=== PATIENT | male | born 1945 | race Caucasian/White ===

== ENCOUNTER → 2016-10-09 | Outpatient (CLI) | payer BC ==
[~2016-10-09] MED LIST: AMLO-341 PO; ASPI81TA28 PO; ATOR-26 PO; CLOP1TAB15 PO; PANT40TA PO
[2016-10-09 12:25] LABS: BASO % 0.4 %; BASO ABS # 0.03 K/uL (0-0.2); COMPLETE YES; EOS % 3.6 %; HEMATOCRIT 40.5 % (42-52); IG% 0.1 %; LYMPH % 29.2 %; LYMPH ABS # 2.12 K/uL (1.2-3.4); MEAN CELL VOLUME 89.8 fL (80-100); MEAN CORPUSCULAR HEMOGLOBIN 28.8 pg (25-34); MEAN CORPUSCULAR HGB CONC 32.1 g/dl (32-36); MEAN PLATELET VOLUME 9.7 fL (7.4-10.4); MONO % 11.7 %; PLATELET COUNT 349 K/uL (130-400); RED BLOOD COUNT 4.51 M/uL (4.7-6.1); WHITE BLOOD COUNT 7.26 K/uL (4.8-10.8)
== END | disposition home or self-care (01) ==
LOC: C.LABBFT 07:52
PROVIDERS: ATTEND Internal Medicine
DX: D64.9 Anemia, unspecified (principal)

== ENCOUNTER → 2016-10-24 | Outpatient (CLI) | payer BC ==
[2016-10-24 17:26] LABS: ALT/SGPT 25 U/L (12-78); AST/SGOT 20 U/L (15-37); BLOOD UREA NITROGEN 13 mg/dl (7-18); BUN/CREATININE RATIO 9.8 (10-20); CALCIUM 8.8 mg/dl (8.5-10.1); CARBON DIOXIDE 29 mmol/L (21-32); CHLORIDE 107 mmol/L (98-107); GLUCOSE 84 mg/dl (70-99); POTASSIUM 3.9 mmol/L (3.5-5.1); SODIUM 141 mmol/L (136-145)
[2016-10-24 17:37] LABS: ALB/GLOB RATIO 1.3 (0.9-2); ALKALINE PHOSPHATASE 57 U/L (45-117)
--- NOTE | 2016-10-31 13:29 | CODING QUERY MEDICAL NECESSITY ---
SUPPORTING DIAGNOSIS NEEDED Chani PA, A supporting diagnosis is required for the test/procedure performed on this patient in order for us to be reimbursed by the patient's insurance. Please provide a supporting diagnosis for the following test/procedure listed below next to the test name along with your signature. *If there is no additional diagnosis for this patient that would support the following test/procedure please document that below next to the test/procedure. Test(s)/Procedure(s) that require a supporting diagnosis: * ([id number]) VITAMIN D ASSAY DIAGNOSIS: DATE OF SERVICE: 10/24/16 Provider Signature: Date: Thank you Regis [facility] Information Management Once completed, please kindly fax back to [phone] For questions please call [phone]
== END | disposition home or self-care (01) ==
LOC: C.LABBC 14:51
PROVIDERS: ATTEND Physician Assistant Medical
DX: R53.83 Other fatigue (principal); E78.5 Hyperlipidemia, unspecified

== ENCOUNTER → 2017-01-02 | Outpatient (CLI) | payer BC ==
[2017-01-02 12:11] LABS: BASO % 0.2 %; BASO ABS # 0.01 K/uL (0-0.2); COMPLETE YES; EOS % 2.6 %; HEMATOCRIT 40.4 % (42-52); IG% 0.2 %; LYMPH ABS # 1.55 K/uL (1.2-3.4); MEAN CELL VOLUME 88.8 fL (80-100); MEAN CORPUSCULAR HEMOGLOBIN 29.9 pg (25-34); MEAN CORPUSCULAR HGB CONC 33.7 g/dl (32-36); MONO % 10.3 %; NEUT % 59.7 %; PLATELET COUNT 265 K/uL (130-400); RED BLOOD COUNT 4.55 M/uL (4.7-6.1); WHITE BLOOD COUNT 5.75 K/uL (4.8-10.8)
== END | disposition home or self-care (01) ==
LOC: C.LABBFT 08:01
PROVIDERS: ATTEND Internal Medicine
DX: Z00.00 Encounter for general adult medical examination without abnormal findings (principal); I10 Essential (primary) hypertension; R53.83 Other fatigue; N64.9 Disorder of breast, unspecified

== ENCOUNTER → 2017-03-29 | Outpatient (CLI) | payer BC | END | disposition home or self-care (01) | LOC: C.LABBFT 14:35 | PROVIDERS: ATTEND Urology | DX: N40.1 Benign prostatic hyperplasia with lower urinary tract symptoms (principal) ==

== ENCOUNTER → 2017-07-05 | Outpatient (CLI) | payer BC ==
[~2017-07-05] MED LIST changes: +AMLO-110 PO; +MULT-506 PO; +OMEG10007 PO
--- NOTE | 2017-07-05 13:53 | DIAGNOSTIC IMAGING REPORT ---
L HAND MIN 3 VIEWS CLINICAL HISTORY: Left hand pain COMPARISON: 08/13/2015 DISCUSSION: No acute fractures or dislocations are visualized. Degenerative changes at the level of the first metacarpal phalangeal joint remains stable. There is no erosive disease. IMPRESSION: No acute fractures. Stable degenerative changes at the level of the first carpal metacarpal joint. Electronically signed by: Bharat Yadav M.D. 07/05/2017 1:52 PM Dictated Date/Time: 07/05/2017 1:51 PM
--- NOTE | 2017-07-05 13:55 | DIAGNOSTIC IMAGING REPORT ---
RIGHT HAND 3 VIEWS CLINICAL HISTORY: Arthritis. FINDINGS: 3 views of the right hand are compared to study dated to. The skeletal structures are osteopenic. No fracture is seen. Mild arthritic change is seen at the first carpometacarpal articulation where there is mild bony sclerosis and minimal subchondral cyst formation. Minimal osteoarthritic change is also seen involving the interphalangeal joints, distal greater than proximal. No erosive change is identified. The overlying soft tissues are within normal limits. IMPRESSION: Osteopenia and mild arthritic change as above. No acute bony abnormality is seen in the right hand. Electronically signed by: Humphrey Cantu M.D. 07/05/2017 1:54 PM Dictated Date/Time: 07/05/2017 1:52 PM
== END | disposition home or self-care (01) ==
LOC: C.RDSM 11:18
PROVIDERS: ATTEND Physician Assistant
DX: M18.0 Bilateral primary osteoarthritis of first carpometacarpal joints (principal)

== ENCOUNTER → 2017-07-09 | Outpatient (CLI) | payer BC ==
[2017-07-09 15:41] LABS: BASO % 0.3 %; BASO ABS # 0.03 K/uL (0-0.2); EOS % 4.3 %; EOS ABS # 0.38 K/uL (0-0.5); HEMATOCRIT 41.9 % (42-52); IG# 0.04 K/uL (0.00-0.02); LYMPH % 22.6 %; LYMPH ABS # 1.98 K/uL (1.2-3.4); MEAN CORPUSCULAR HEMOGLOBIN 29.7 pg (25-34); MEAN CORPUSCULAR HGB CONC 33.4 g/dl (32-36); MEAN PLATELET VOLUME 9.7 fL (7.4-10.4); MONO % 8.9 %; MONO ABS # 0.78 K/uL (0.11-0.59); NEUT % 63.4 %; NEUT ABS # 5.57 K/uL (1.4-6.5); PLATELET COUNT 313 K/uL (130-400); RED CELL DISTRIBUTION WIDTH CV 13.1 % (11.5-14.5); RED CELL DISTRIBUTION WIDTH SD 42.7 fL (36.4-46.3); WHITE BLOOD COUNT 8.78 K/uL (4.8-10.8)
[2017-07-09 16:06] LABS: BLOOD UREA NITROGEN 16 mg/dl (7-18); CALCIUM 9.1 mg/dl (8.5-10.1); CARBON DIOXIDE 28 mmol/L (21-32); CREATININE 1.21 mg/dl (0.60-1.40); GLUCOSE 90 mg/dl (70-99); POTASSIUM 4.1 mmol/L (3.5-5.1); SODIUM 137 mmol/L (136-145)
== END ==
LOC: C.LAB 14:22
PROVIDERS: ATTEND Physician Assistant
DX: Z01.818 Encounter for other preprocedural examination (principal)

== ENCOUNTER → 2017-07-24 | Day surgery (SDC) | payer BC ==
[2017-07-10 07:55] VITALS: Ht 180.3 cm; Wt 81.4 kg
[~2017-07-24] VITALS: Ht 180.3 cm; Wt 81.4 kg
[~2017-07-24] MED LIST changes: -AMLO-341 PO; +ATROPINE SULFATE 0.1 MG/ML 5ML SYR IV PRN; +BUPIVACAINE 0.5 % 5 MG/1 ML MPF 30ML VIAL ONE; +CEFAZOLIN 2000MG IV PUSH 10 ML IV SCH; +DEXAMETHASONE SOD INJ 4 MG/ML VIAL ONE; +FENTANYL CITRATE INJ 50 MCG/1 ML 2 ML VIAL ONE; +KETOROLAC TROMETHAMINE 30 MG/ML VIAL IV. PRN; +LACTATED RINGER'S 1000ML 1,000 ML IV SCH; +LIDOCAINE HCL 2% 2 ML VIAL (20MG/ML) ONE; +MIDAZOLAM HCL 1 MG/ML 2ML VIAL ONE; +ONDANSETRON INJ 2 MG/ML 2 ML VIAL IV PRN; +ONDANSETRON INJ 2 MG/ML 2 ML VIAL ONE; +OXYCODONE/ACETAMINOPHEN 5-325 TAB PO PRN; -PANT40TA PO; +PROPOFOL IV EMULSION 10 MG/ML 20 ML VIAL IV ONE; +SODIUM CHLORIDE 0.9% 1000ML 1,000 ML IV SCH
--- NOTE | 2017-07-24 09:50 | History & Physical Bridge Note ---
H&P Re-Evaluation Bridge Note: I have examined the patient, reviewed the History & Physical and in the interval since the performance of the History & Physical I have noted the following changes of clinical significance:consent obtained. No changes noted
--- NOTE | 2017-07-24 09:51 | Discharge Instructions ---
Discharge Instructions Date of Service Jul 24, 2017. Visit Reason for Visit: Left Thumb Carpometacarpal Arthritis Trigger Digit Discharge Discharge Diagnosis / Problem: same Discharge Goals Goal(s): Decrease discomfort, Improve function Medications Stopped Medications Name(s): na Restart Stopped Medication(s): use all scripts as directed Activity Recommendations Activity Limitations: as noted below Lifting Limitations: until after follow-up appointment Exercise/Sports Limitations: until after follow-up appointment May Resume Sexual Activity: after follow-up appointment Shower/Bathe: keep incision dry Driving or Machine Use: Anesthesia . Post Anesthesia Instructions: If you have had General Anesthesia or IV Sedation: * Do not drive today. * Resume driving when surgeon permits. * Do not make important decisions or sign legal documents today. * Call surgeon for: 1. Temperature elevations greater than 101 degrees F. 2. Uncontrollable pain. 3. Excessive bleeding. 4. Persistent nausea and vomiting. 5. Medication intolerance (nausea, vomiting or rash). * For nausea and vomiting use only clear liquids such as: tea, soda, bouillon until nausea subsides, then gradually increase diet as tolerated. * If you have any concerns or questions, call your surgeon's office. If physician is unavailable and it is an emergency, call 911 or go to the nearest emergency room. . Instructions / Follow-Up Instructions / Follow-Up DIET: * Resume previous diet. MEDICATIONS: * Please take your prescriptions as instructed at your pre-op appointment and/ or see medication discharge instructions listed above. * If concerns develop, call your physician's office at . SPECIAL CARE INSTRUCTIONS: * Ice/Elevate as instructed. * Keep dressing clean, dry, intact. * Your surgical extremity may be discolored due to prepping agents used on the skin. A bluish-green tint is a normal variant and should not cause alarm. Call your doctor at [phone] if: * Temperature above 101 degrees * Pain not relieved by pain medicine ordered * There is increased drainage or redness from any incision * You have any unanswered questions, problems or concerns. FOLLOW UP VISIT: * If not already scheduled, please call the office at to schedule a follow-up appointment. Diet Recommendations Recommended Home Diet: resume previous diet Procedures Procedures Performed: see op note Pending Studies Studies pending at discharge: no Medical Emergencies . Who to Call and When: Medical Emergencies: If at any time you feel your situation is an emergency, please call 911 immediately. . Non-Emergent Contact Non-Emergency issues call your: Specialist Call Non-Emergent contact if: temperature is above 101.5, wound has increased drainage, wound has increased redness, wound has increased pain . . "Provider Documentation" section prepared by Yordan Low. .
--- NOTE | 2017-07-24 11:26 | [facility] Post Operative Brief Note ---
Immediate Operative Summary Operative Date Jul 24, 2017. Pre-Operative Diagnosis Left Thumb CMC Arthritis and Trigger Digit Post-Operative Diagnosis Same Procedure(s) Performed Left Thumb Open Basal Joint Reconstruction Using FCR Autograft, Trigger Thumb Release Surgeon Dr. Low Squeegee Tender Surgeon(s) Natan Avitia PA-C Estimated Blood Loss Minimal Findings Consistent with Post-Op Diagnosis Fluids (cc crystalloids) 1500cc Specimens None Drains None Anesthesia Type General Complication(s) none Disposition Accompanied Pt To Recover: no Disposition: Recovery Room / PACU
--- NOTE | 2017-07-24 11:37 | [facility] Operative Report ---
Operative Report Operative Date Jul 24, 2017. Pre-Operative Diagnosis Left Thumb CMC Arthritis and Trigger Digit Post-Operative Diagnosis Left thumb same Procedure(s) Performed Left Thumb Open Basal Joint Reconstruction Using FCR Autograft, Trigger Thumb Release Surgeon Dr. Low Furnace Combustion Analyst Surgeon(s) Natan Avitia PA-C Estimated Blood Loss Minimal Findings Basal joint arthritis left thumb, trigger digit left thumb Fluids (cc crystalloids) 1500cc Specimens None Drains none Complication(s) None Disposition Recovery Room / PACU Indications This 71-year-old white male presented to the office with complaints of triggering of his left thumb and pain at the base of his left thumb that was worse with movement or gripping. Radiographic imaging was obtained that confirmed basal joint arthritis. He had tried activity modification, cortisone injections, and physical therapy without improvement. He elected to proceed with surgical intervention of both in hopes of alleviating his symptoms. Description of Procedure Patient was taken to the operating room where he was given general anesthesia. He was prepped and draped in usual sterile fashion. Please see Dr. Low's operative report for specifics of the procedure. I was present for the entire case from initial patient positioning through final wound closure. Assistance was provided in tissue traction, hemostasis, graft harvest , final wound closure, and splint application. Patient was taken to the recovery room in satisfactory condition. I attest to the content of the Intraoperative Record and any orders documented therein. Any exceptions are noted below.
[2017-07-24] MEDS: FENTANYL CITRATE INJ 50 MCG/1 ML 2 ML VIAL IV PRN ×2 (11:59→12:07)
[2017-07-24 12:28] VITALS: TEMP 36.6
[2017-07-24 12:52] VITALS: BP 153/90; PULSE 82; O2SAT 97
--- NOTE | 2017-07-24 13:13 | Anesthesia Progress Nt - [facility] ---
Anesthesia Post Op Note Date & Time Jul 24, 2017 at 13:13 Vital Signs Pain Intensity: 4 Vital Signs Past 12 Hours Date Time Temp Pulse Resp B/P (MAP) Pulse Ox O2 Delivery O2 Flow Rate FiO2 07/24/17 12:52 82 16 153/90 (111) 97 Room Air 07/24/17 12:28 36.6 86 16 148/87 (107) 96 Room Air 07/24/17 12:21 78 14 94 07/24/17 12:21 78 14 94 07/24/17 12:21 78 14 07/24/17 12:21 78 14 07/24/17 12:20 145/86 07/24/17 12:19 80 14 07/24/17 12:19 81 14 94 07/24/17 12:18 36.5 79 20 145/86 94 Room Air 07/24/17 12:15 153/88 07/24/17 12:14 78 8 07/24/17 12:14 78 8 93 07/24/17 12:13 75 10 07/24/17 12:13 73 10 93 07/24/17 12:10 161/91 07/24/17 12:08 80 12 07/24/17 12:08 81 12 96 07/24/17 12:07 81 13 07/24/17 12:07 83 13 96 07/24/17 12:06 81 13 07/24/17 12:06 79 13 95 07/24/17 12:05 140/84 07/24/17 12:01 77 14 07/24/17 12:01 78 14 95 07/24/17 12:00 144/87 07/24/17 11:56 79 10 99 07/24/17 11:56 78 10 07/24/17 11:55 154/85 07/24/17 11:51 77 9 99 07/24/17 11:51 77 9 07/24/17 11:50 152/89 07/24/17 11:46 79 12 99 07/24/17 11:46 80 12 07/24/17 11:45 160/82 07/24/17 11:41 85 20 07/24/17 11:41 85 20 99 07/24/17 11:40 148/92 07/24/17 11:39 81 12 99 07/24/17 11:39 80 12 07/24/17 11:35 159/94 07/24/17 11:34 81 1 98 07/24/17 11:34 81 1 07/24/17 11:30 154/85 07/24/17 11:29 36.3 92 16 149/77 98 Mask 8 07/24/17 11:29 149/77 07/24/17 09:24 36.7 81 16 164/82 (109) 97 Room Air Notes Mental Status: alert / awake / arousable, participated in evaluation Pt Amnestic to Procedure: Yes Nausea / Vomiting: adequately controlled Pain: adequately controlled Airway Patency, RR, SpO2: stable & adequate BP & HR: stable & adequate Hydration State: stable & adequate Anesthetic Complications: no major complications apparent
--- NOTE | 2017-07-24 16:50 | OPERATIVE REPORT ---
DATE OF OPERATION: 07/24/2017 SURGEON: Dr. Low. AGRICULTURAL EQUIPMENT TEST ENGINEER: BIANKA Avitia. No resident or fellow available. PREOPERATIVE DIAGNOSES: 1. Left trigger thumb. 2. Carpometacarpal arthritis and instability, left thumb. POSTOPERATIVE DIAGNOSES: Same. OPERATION PERFORMED: 1. Basal joint reconstruction using LRTI FCR tendon. 2. Trigger thumb release. PERIOPERATIVE SITUATION: Medically cleared male with intractable thumb pain has both the trigger thumb and basal joint instability and DJD, wants to proceed with both areas simultaneously at his request. DESCRIPTION OF PROCEDURE: The patient appropriately identified, site verified, consent verified, 2 grams of Ancef confirmed as being given. The left upper extremity was prepped and draped in usual routine fashion. Tourniquet was then inflated to 250 mmHg after exsanguination of limb with a rubber Esmarch bandage for a total of approximately 1 hour. The trigger thumb was addressed first due to the fact that the thumb needed to be mobile. The palpable nodule was identified and then skin incisions carefully scratched over that blunt dissection down to the flexor mechanism. The proximal and distal extent of the proximal christopher was then identified and it was incised under direct vision. The tendon had some fraying but no tear. The thumb had full range of motion. There was no catching. It was then irrigated and closed with horizontal 3-0 nylon mattress sutures. Attention was then turned towards the basal joint. A Villatoro type incision was then made. Full thickness flaps raised. Care taken to protect the sensory nerves. The tendons were then dissected from the first metacarpal and retracted ulnarly and radially. The joint was then entered and the trapezium subperiosteally dissected, care was taken to protect the deep branch of the radial artery. The trapezium was then split in half with an osteotome and then removed without any difficulty. The FCR tendon insertion was preserved into the base of the second metacarpal. The wound was then irrigated. An Arthrex anchor was then placed into the trapezoid. Holes were then made in the proximal extent of the first metacarpal and enlarged with curettes. This was then irrigated. The FCR was then harvested through 2 small incisions on the volar surface of the forearm was detached proximally and then delivered into the distal wound. These areas were then irrigated and then closed with 3-0 nylon. The tendon was then passed through. The base of first metacarpal was quite thick and required a fair amount of manipulation to get through, ultimately was through looped on itself and then tied back down to the anchor, which reconstructed the volar beak ligament. The graft was then anchovied on the remaining part of the suture using Heraclio needles which then filled the base of the joint very nicely and this was tight on itself. Sutures were then cut and the capsule was then closed with 2-0 Vicryl sutures with an excellent capsular repair. The wound was then irrigated. At rest, the thumb sat reduced and was nicely in position. The wound was then irrigated one final time and closed with a running 3-0 nylon suture. A 0.062 K wire was then placed and secured the thumb in excellent position for healing of the soft tissue. The wounds were then appropriately dressed with Xeroform, 4 x 4 gauze, light Webril and then a 3-inch fiberglass splint. The patient transferred to recovery room in satisfactory condition having tolerated the procedure well. No DVT prophylaxis required. ESTIMATED BLOOD LOSS: Trace. CRYSTALLOID: Roughly 1500 mL. SPECIMENS: No specimens. I attest to the content of the Intraoperative Record and any orders documented therein. Any exception s are noted below.
== END | disposition home or self-care (01) ==
LOC: X.SURG 09:16
PROVIDERS: ATTEND Physical Medicine & Rehabilitation Sports Medicine
DX: M65.312 Trigger thumb, left thumb (principal); M19.042 Primary osteoarthritis, left hand; I10 Essential (primary) hypertension; K21.9 Gastro-esophageal reflux disease without esophagitis; N40.0 Benign prostatic hyperplasia without lower urinary tract symptoms; Z86.73 Personal history of transient ischemic attack (TIA), and cerebral infarction without residual deficits; Z86.010 Personal history of colon polyps; Z79.82 Long term (current) use of aspirin; Z80.3 Family history of malignant neoplasm of breast; Z80.2 Family history of malignant neoplasm of other respiratory and intrathoracic organs

== ENCOUNTER → 2017-08-20 | Outpatient (CLI) | payer BC ==
[~2017-08-20] MED LIST changes: -ATROPINE SULFATE 0.1 MG/ML 5ML SYR IV PRN; -BUPIVACAINE 0.5 % 5 MG/1 ML MPF 30ML VIAL ONE; -CEFAZOLIN 2000MG IV PUSH 10 ML IV SCH; -DEXAMETHASONE SOD INJ 4 MG/ML VIAL ONE; -FENTANYL CITRATE INJ 50 MCG/1 ML 2 ML VIAL ONE; -KETOROLAC TROMETHAMINE 30 MG/ML VIAL IV. PRN; -LACTATED RINGER'S 1000ML 1,000 ML IV SCH; -LIDOCAINE HCL 2% 2 ML VIAL (20MG/ML) ONE; -MIDAZOLAM HCL 1 MG/ML 2ML VIAL ONE; -ONDANSETRON INJ 2 MG/ML 2 ML VIAL IV PRN; -ONDANSETRON INJ 2 MG/ML 2 ML VIAL ONE; -OXYCODONE/ACETAMINOPHEN 5-325 TAB PO PRN; -PROPOFOL IV EMULSION 10 MG/ML 20 ML VIAL IV ONE; -SODIUM CHLORIDE 0.9% 1000ML 1,000 ML IV SCH
[2017-08-20 11:58] LABS: BASO % 0.4 %; BASO ABS # 0.03 K/uL (0-0.2); EOS % 2.8 %; EOS ABS # 0.19 K/uL (0-0.5); HEMATOCRIT 40.6 % (42-52); HEMOGLOBIN 13.7 g/dL (14.0-18.0); IG# 0.02 K/uL (0.00-0.02); LYMPH % 24.6 %; LYMPH ABS # 1.68 K/uL (1.2-3.4); MEAN CELL VOLUME 86.9 fL (80-100); MEAN CORPUSCULAR HEMOGLOBIN 29.3 pg (25-34); MEAN CORPUSCULAR HGB CONC 33.7 g/dl (32-36); MEAN PLATELET VOLUME 10.4 fL (7.4-10.4); MONO % 8.6 %; MONO ABS # 0.59 K/uL (0.11-0.59); NEUT % 63.3 %; NEUT ABS # 4.33 K/uL (1.4-6.5); PLATELET COUNT 226 K/uL (130-400); RED CELL DISTRIBUTION WIDTH CV 13.4 % (11.5-14.5); RED CELL DISTRIBUTION WIDTH SD 42.5 fL (36.4-46.3); WHITE BLOOD COUNT 6.84 K/uL (4.8-10.8)
[2017-08-20 12:09] LABS: ALBUMIN 3.9 gm/dl (3.4-5.0); ALT/SGPT 24 U/L (12-78); AST/SGOT 15 U/L (15-37); BLOOD UREA NITROGEN 14 mg/dl (7-18); CALCIUM 8.8 mg/dl (8.5-10.1); CARBON DIOXIDE 28 mmol/L (21-32); GLUCOSE 88 mg/dl (70-99); POTASSIUM 3.9 mmol/L (3.5-5.1); SODIUM 139 mmol/L (136-145)
[2017-08-20 12:20] LABS: ALKALINE PHOSPHATASE 66 U/L (45-117); CHOLESTEROL 155 mg/dl (0-200); LDL CHOLESTEROL CALCULATED 74 mg/dl; TOTAL PROTEIN 7.4 gm/dl (6.4-8.2)
== END | disposition home or self-care (01) ==
LOC: C.LAB 10:07
PROVIDERS: ATTEND Internal Medicine
DX: I10 Essential (primary) hypertension (principal); E78.5 Hyperlipidemia, unspecified; I63.9 Cerebral infarction, unspecified; J45.909 Unspecified asthma, uncomplicated; N40.1 Benign prostatic hyperplasia with lower urinary tract symptoms; R53.83 Other fatigue; D64.9 Anemia, unspecified; Z12.5 Encounter for screening for malignant neoplasm of prostate

== ENCOUNTER → 2017-08-20 | Outpatient (CLI) | payer BC | END | disposition home or self-care (01) | LOC: C.RDSM 06:48 | PROVIDERS: ATTEND Physical Medicine & Rehabilitation Sports Medicine | DX: Z09 Encounter for follow-up examination after completed treatment for conditions other than malignant neoplasm (principal); M18.0 Bilateral primary osteoarthritis of first carpometacarpal joints ==

== ENCOUNTER → 2017-10-15 | Outpatient (CLI) | payer BC ==
--- NOTE | 2017-10-15 09:04 | DIAGNOSTIC IMAGING REPORT ---
RIGHT ANKLE 3 VIEWS CLINICAL HISTORY: Right ankle pain. FINDINGS: 3 views of the right ankle are obtained. No prior studies are available for comparison at the time of dictation. The skeletal structures are osteopenic. No fracture is seen. The ankle mortise is intact. Degenerative spurring/enthesophyte formation is noted along the medial malleolus. There is a large plantar calcaneal enthesophyte. No joint effusion is identified. The overlying soft tissues are normal in appearance. IMPRESSION: 1. No acute bony abnormality is identified. 2. Large plantar heel spur. Electronically signed by: Humphrey Cantu M.D. 10/15/2017 9:03 AM Dictated Date/Time: 10/15/2017 9:02 AM
== END | disposition home or self-care (01) ==
LOC: C.RAD1850 08:48
PROVIDERS: ATTEND Internal Medicine
DX: M25.571 Pain in right ankle and joints of right foot (principal); M77.31 Calcaneal spur, right foot

== ENCOUNTER → 2018-02-11 | Outpatient (CLI) | payer BC ==
[~2018-02-11] MED LIST changes: -AMLO-110 PO; +AMLO5TAB3 PO
== END | disposition home or self-care (01) ==
LOC: C.RDSM 13:01
PROVIDERS: ATTEND Physical Medicine & Rehabilitation Sports Medicine
DX: M19.042 Primary osteoarthritis, left hand (principal)

== ENCOUNTER 2018-06-26 08:00 | Inpatient (IN) ==
--- NOTE | 2018-06-26 08:22 | CT Scan Report ---
CT head/brain wo con CLINICAL HISTORY: 72 years-old Male presenting with possible cerebrovascular accident, history of lef t occipital infarct. TECHNIQUE: Multidetector CT imaging of the head was performed without the use of intravenous contrast . IV contrast: None. A dose lowering technique was used consistent with the principles of ALARA (as l ow as reasonably achievable). COMPARISON: 11/19/2014. CT DOSE (mGy.cm): The estimated cumulative dose is 537.48 mGy.cm. FINDINGS: Meat Grader topogram: Unremarkable. Ventricles and sulci normal in size. No hemorrhage. Old infarct in the left occipital lobe involving the left periventricular white matter at the subpleural horn as well as the overlying cortex. No acut e territorial infarct. No mass effect or midline shift. No extra-axial fluid collection. Paranasal si nuses and mastoid air cells clear. Calvarium intact. IMPRESSION: 1. No significant change compared to the prior study. Old left occipital lobe infarct. No acute intr acranial abnormality. Electronically signed by: Rafi Marie M.D. 06/26/2018 8:21 AM
--- NOTE | 2018-06-26 08:32 | XRay Report ---
XR chest 1V portable CLINICAL HISTORY: weakness dyspnea COMPARISON STUDY: 11/18/2014 FINDINGS: The bones soft tissues and hemidiaphragms are normal. The cardiomediastinal silhouette is n ormal. The lungs are clear. The pulmonary vasculature is normal. IMPRESSION: Negative chest. The above report was generated using voice recognition software. It may contain grammatical, syntax or spelling errors. Electronically signed by: Kailash Jung M.D. 06/26/2018 8:31 AM
[2018-06-26 08:34] LABS: Basophils # (auto) 0.03 K/uL (0-0.2); Basophils % (auto) 0.3 %; Eosinophils # (auto) 0.04 K/uL (0-0.5); Eosinophils % (auto) 0.4 %; Hematocrit (blood only) 39.2 % (42-52); Hemoglobin 13.3 g/dL (14.0-18.0); Immature Granulocytes # (auto) 0.04 K/uL (0.00-0.02); Immature Granulocytes % (auto) 0.4 %; Lymphocytes # (auto) 1.76 K/uL (1.2-3.4); Lymphocytes % (auto) 16.1 %; Mean Corpuscular Hgb Conc 33.9 g/dL (32-36); Mean Corpuscular Volume 87.7 fL (80-100); Monocytes # (auto) 0.61 K/uL (0.11-0.59); Monocytes % (auto) 5.6 %; Neutrophils # (auto) 8.48 K/uL (1.4-6.5); Neutrophils % (auto) 77.2 %; Platelet Count 187 K/uL (130-400); RDW Coefficient of Variation 13.2 % (11.5-14.5); Red Blood Count 4.47 M/uL (4.7-6.1); White Blood Count 10.96 K/uL (4.8-10.8)
[2018-06-26 08:39] LABS: Prothrombin Time 9.8 Seconds (9.0-12.0)
[2018-06-26] MEDS ORDERED: MECLIZINE HCL 25 MG TAB PO STA (08:46)
[2018-06-26 08:52] LABS: Alanine Aminotransferase 20 U/L (12-78); Albumin Level 3.6 gm/dl (3.4-5.0); Aspartate Aminotransferase 13 U/L (15-37); BUN Creatinine Ratio 10.6 (10-20); Blood Urea Nitrogen 14 mg/dl (7-18); Calcium 8.5 mg/dl (8.5-10.1); Carbon Dioxide 25 mmol/L (21-32); Chloride 106 mmol/L (98-107); Creatinine Clr Calc Pharmacy 52.7 ml/min; Est GFR (African American) 61.7; Est GFR (Non-African American) 53.3; Glucose 166 mg/dl (70-99); Magnesium 1.9 mg/dl (1.8-2.4); Potassium 3.6 mmol/L (3.5-5.1); Sodium 139 mmol/L (136-145)
[2018-06-26] MEDS ORDERED: AMLODIPINE BESYLATE 5 MG TAB PO ONE (09:00)
[2018-06-26 09:02] LABS: Alkaline Phosphatase 65 U/L (45-117); Bilirubin,Total 0.6 mg/dl (0.2-1); Creatine Kinase 78 U/L (39-308); Globulin 3.7 gm/dl (2.5-4.0); Total Protein 7.3 gm/dl (6.4-8.2); Troponin I < 0.015 ng/ml (0-0.045)
--- NOTE | 2018-06-26 09:38 | History & Physical Report ---
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 Patient underwent left carotid endarterectomy in December 18, 2014. Patient suffered an infected hematoma and underwent reexploration of that area with drainage of the infected hematoma, he continues to follow with Dr. Medina. -Check A1C, lipids with am labs -Neurochecks per protocol, PT/OT eval, speech eval, consider opthamology consultation -Pt was given meclizine x1 dose in the ER, consider continuing if symptoms improve and seems to be more vertigo versus TIA -Permissive hypertension, BP has improved -Echo ordered -Continue ASA 81 mg daily -will start simvastatin (4) H/O carotid endarterectomy: - Noted, stable (5) HLD (hyperlipidemia): -Start statin therapy as above, follow lipid panel (6) Anemia: (7) Asthma: -Stable, uses symbicort inh as outpatient, can continue this here. (8) BPH (benign prostatic hyperplasia): -Stable, follows with Dr. Dickens as an outpatient urology. -Continue alfuzosin 10 mg p.o. p.m. (9) Hypertension: - Well-controlled (10) DVT prophylaxis: teds, scds, continue asa, no chemical anticoagulation in the setting of possible cva and conversion, ambulatory, PT/OT consults. History of Present Illness Primary Care Provider: Rafi Alejandro MD This is a 72 yo M with PMHx of hx of stroke in 2015 s/p carotidendarterectomy, HTN, HLD, remote smoking history and quit in the 1970s. He presents after waking up early this morning and noticed that his gait was unsteady as he attempted to walk to the bathroom. Patient also noticed that his vision seemed blurred, as well as had double vision. Double vision seems to be worse with objects which are approximately 5 feet to 15 feet away from him. He does not notice any decrease in peripheral vision, or light sensitivity. He denies any shortness of breath or chest pain, palpitations or flutter. Patient has never experienced these symptoms before. During his last stroke he had aphasia and difficulty word finding. Patient presented this morning hours after the initiation of symptoms, no thrombolytics were given. The ER did give the patient 1 dose of meclizine for possible vertigo and he reports that diplopia/ blurred vision seems to be improving at this time. Initially his blood pressure was elevated in the 190s over 80s and he has recently been taking off his Norvasc x1 year. Allergies Allergy/AdvReac Type Severity Reaction Status Date / Time No Known Allergies Allergy Unverified 06/26/18 09:00 Home Medications Home Medications Medication Instructions Recorded Confirmed Type Pertussin Cough Syrup 10 ml PO UD 06/26/18 06/26/18 History Symbicort 2 puff INHALATION BID 06/26/18 06/26/18 History acetaminophen [Tylenol Extra 500 mg PO Q6H PRN 06/26/18 06/26/18 History Strength] alfuzosin 10 mg PO PM 06/26/18 06/26/18 History aspirin 81 mg PO HS 06/26/18 06/26/18 History ibuprofen 200 mg PO UD 06/26/18 06/26/18 History multivitamin 1 tab PO QAM 06/26/18 06/26/18 History omega 7-cvq-moc-fish oil [Fish Oil] 1 cap PO 1200 06/26/18 06/26/18 History Past Med/Surg History Medical History Hypertension (Chronic) CVA (cerebral vascular accident) (Resolved) Surgical History H/O carotid endarterectomy Family History Other Family history non-contributory Social History Current Living Situation: Spouse Other Information That Helps Us Care for You: No Feels Safe at Home: Yes Safety Concerns: Feels Safe At This Time Smoking Status: Former smoker Tobacco Type: cigarettes Do You Dip or Chew Tobacco: No Second Hand Exposure: No Tobacco Cessation Education Requested by Patient: No Hx Alcohol Use: Yes Alcohol type: beer Alcohol Intake Frequency: 0-2 drinks per day Hx Substance Use: No Beliefs That Will Affect Care: None Preferred Language: Beninese Communication Ability: Effective Transportation Design Engineer Required: No Review of Systems Constitutional: No fever, sweats or chills Eyes: See HPI, patient seems to be improving at this time. ENT: normal hearing, no trouble swallowing Respiratory: No cough, sputum, dyspnea at rest or on exertion Cardiovascular: No chest pain, tightness or palpitations Abdomen: No pain, nausea, vomiting, diarrhea or constipation Musculoskeletal: No joint pain, calf pain, swelling Neurologic: +Gait abnormality, no numbness/tingling Psychiatric: No anxiety or depression Skin: No rash or itch Physical Exam 2 Vital Signs (Past 24 Hours): Last Vital Signs Temp 36.3 C L 06/26/18 08:01 Pulse 68 06/26/18 09:05 Resp 18 06/26/18 09:05 BP 152/84 H 06/26/18 09:05 Pulse Ox 98 06/26/18 09:05 Physical Exam: General: awake, alert, no apparent distress Head: Normocephalic, atraumatic ENT: PERRL, EOMI, no pharyngeal exudate, mucous membranes moist Chest: Clear to auscultation, on room air, no adventitious breath sounds Cardiac: Regular rate and rhythm, +faint murmur, no JVD, normal peripheral pulses, good capillary refill Abdominal: NABS x 4 quadrants, soft, nontender to palpation, no rebound, guarding or tenderness Extremities: Normal inspection, no peripheral edema or erythema, calfs nontender to palpation Psych: Normal mood and affect Neuro: AAO x 3, strength intact, slight left lower extremity decrease in strength rated a 4 out of 5 compared to the right lower extremity which is a 5/5 , no upper extremity strength discrepancies, and rated 5/5. no motor deficits, speech is clear, no peripheral sensory deficits Results & Data Diagnostic Findings XR chest 1V portable CLINICAL HISTORY: weakness dyspnea COMPARISON STUDY: 11/18/2014 FINDINGS: The bones soft tissues and hemidiaphragms are normal. The cardiomediastinal silhouette is normal. The lungs are clear. The pulmonary vasculature is normal. IMPRESSION: Negative chest. CT head/brain wo con CLINICAL HISTORY: 72 years-old Male presenting with possible cerebrovascular accident, history of left occipital infarct. TECHNIQUE: Multidetector CT imaging of the head was performed without the use of intravenous contrast. IV contrast: None. A dose lowering technique was used consistent with the principles of ALARA (as low as reasonably achievable). COMPARISON: 11/19/2014. CT DOSE (mGy.cm): The estimated cumulative dose is 537.48 mGy.cm. FINDINGS: Firing Pin Gauger topogram: Unremarkable. Ventricles and sulci normal in size. No hemorrhage. Old infarct in the left occipital lobe involving the left periventricular white matter at the subpleural horn as well as the overlying cortex. No acute territorial infarct. No mass effect or midline shift. No extra-axial fluid collection. Paranasal sinuses and mastoid air cells clear. Calvarium intact. IMPRESSION: 1. No significant change compared to the prior study. Old left occipital lobe infarct. No acute intracranial abnormality. ECG Additional Comments: 26-JUN-2018 08:22:14 [facility] Normal sinus rhythm Left axis deviation Incomplete right bundle branch block Abnormal ECG When compared with ECG of 09-JUL-2017 14:37, Premature ventricular complexes are no longer Present Vent. rate 84 BPM AL interval 176 ms QRS duration 102 ms QT/QTc 380/449 ms P-R-T axes 64 -34 34 Code Status & VTE Plan Code Status Full Supervising Physician Co-Signing Physician Notes Attending Admission Note & Attestation - Pt seen/examined, chart reviewed, care plan d/w PATRICIA Patton. I agree w/ the gaines components of her admission documentation. 72yo male with history of asthma and prior left-sided stroke attributed to left- sided ICA stenosis several years ago presenting w/ the acute onset of dizziness , double vision and ataxia. Denies true vertigo. Denies any paresthesias or motor weakness. Double vision improves with covering either eye. The double vision is horizontal in nature. Denies true visual field cut. He also reports URI symptoms for several days, particularly cough. PMH, PSH, allergies, meds, sochx, famhx, ros - reviewed vitals - BPs elevated, other vitals acceptable gen - NAD, a/o x 3, speech clear & fluent eyes - PERRL; visual danielle full by direct confrontation; ?very subtle right lateral abducens palsy?? otherwise EOM were intact mouth - MMM heart - RRR, s1, s2, no murmur lungs - mild end-exp wheeze abd - soft, NT, ND, BS+ ext - no edema neuro - no facial droop; no pronator drift; strength 5/5 x 4 exts; finger/nose/ finger maneuver w/o dysmetria labs- mild leukocytosis BMP wnl CT head - old left occipital lobe stroke; no acute stroke EKG - NSR A/P: 72yo male with asthma and prior stroke presenting with acute onset of diplopia and ataxia. No true vertigo by history and no visual field deficits. Symptoms have persisted since time of presentation. History is concerning for stroke. Complete the stroke work-up with MRI brain, CTA head/neck, echo, telemetry to r/ o a. fib, lipids/a1c, etc. The diplopia is distressing to the patient - can patch either eye to eliminate the diplopia. Neurology consultation requested. Cont aspirin for now but consider changing to plavix. Agree w/ statin. Asthma - with possible early exacerbation - cont symbicort; add combivent 1 puff qid. Consider prednisone if any worsening. Mucinex. Jc Mcneal MD
--- NOTE | 2018-06-26 10:13 | Emergency Department Note ---
Entered by Laurel Osborn acting as a scribe for History of Present Illness General Chief complaint: Neuro Symptoms/Deficit Stated complaint: EYE BLURRY,LIPS NUMB,NOT FEELING WELL,DIZZY Time Seen by Provider: 06/26/18 08:06 Source: patient History of Present Illness Onset (ago): hour(s) 5 Location: eyes Pain Consistency: + constant Maximum Pain Intensity: 0 Quality: + other (dizziness and an inability to "focus his eyes") Associated symptoms: + nausea/vomiting (The patient complains of nausea, but he denies vomiting. ) and + other (The patient complains of numbness in his lips. ) The patient is a 72 year old male who presents to the Emergency Room with complaints of constant dizziness and an inability to "focus his eyes" since he woke up this morning at 0330, about 4.75 hours ago. The patient reports that he feels like a "cheap drunk," and notes that he still has "blurry eyes and dizziness." The patient notes that he has double vision when the object is more than 10 feet away. He states that he got out of bed at 0530 to use the restroom and complains that he was staggering while attempting to walk. The patient complains of numbness in his lips and nausea. He denies any vomiting. The patient's , at bedside, reports that he has had a cold for the past few days. The patient notes that he consumes 1 beer daily, and he denies any tobacco or drug use. He states that he takes a baby Aspirin daily, but notes that he did not take it last night. He states that he takes Arginine daily. The patient reports a history of hypertension and hyperlipidemia. He notes that he had a stroke in 2014. Home Medications Home Medications Medication Instructions Recorded Confirmed Type Pertussin Cough Syrup 10 ml PO UD 06/26/18 06/26/18 History acetaminophen [Tylenol Extra 500 mg PO Q6H PRN 06/26/18 06/26/18 History Strength] alfuzosin 10 mg PO PM 06/26/18 06/26/18 History aspirin 81 mg PO HS 06/26/18 06/26/18 History ibuprofen 200 mg PO UD 06/26/18 06/26/18 History multivitamin 1 tab PO QAM 06/26/18 06/26/18 History omega 0-dbx-hdk-fish oil [Fish Oil] 1 cap PO 1200 06/26/18 06/26/18 History Allergies Allergy/AdvReac Type Severity Reaction Status Date / Time No Known Allergies Allergy Unverified 06/26/18 09:00 Past Med/Surg History Medical History Hypertension (Chronic) CVA (cerebral vascular accident) (Resolved) Family History Other Family history non-contributory Social History Feels Safe at Home: Yes Smoking Status: Former smoker Preferred Language: Dutch Review of Systems See HPI for pertinent positives & negatives. and A total of 10 systems reviewed and were otherwise negative Physical Exam Vital Signs Vital Signs - 24 hr 06/26/18 08:01 06/26/18 08:30 06/26/18 09:05 Temperature 36.3 C L Temperature Source Oral Sepsis Recent Fever Within 48 Hours No Sepsis New/Unexplained Change in Mental Status No Sepsis Action Taken by Nursing No Action Required Pulse Rate 69 84 Pulse Rate [Left Radial] 80 68 Pulse Rhythm [Left Radial] Regular Respiratory Rate 17 18 18 Respiratory Effort / Characteristics Non-Labored Non-Labored Non-Labored Spontaneous Respiratory Depth Normal Normal Normal Respiratory Pattern Regular Regular Regular Blood Pressure 189/96 H Blood Pressure [Right Radial Artery] 190/85 H 152/84 H Blood Pressure Mean 127 Blood Pressure Mean [Right Radial Artery] 120 106 Blood Pressure Position Sitting Blood Pressure Position [Right Radial Artery] Lying Lying Pulse Oximetry 96 98 98 Oxygen Delivery Method Room Air Room Air Room Air VITAL SIGNS: were reviewed as above. GENERAL:Non-toxic in appearance. SKIN: Warm dry and pink. HEAD: Normocephalic and atraumatic. OROPHARYNX: Is clear and moist NECK: Supple without lymphadenopathy or meningismus. LUNGS: clear. HEART: Regular rate and rhythm. ABDOMEN: Soft and nontender. EXTREMITIES: Warm and well perfused. NEUROLOGICALLY: Awake alert and oriented without focal deficit. Cranial nerves 2 -12 are intact. There is no pronator drift. Cerebellar testing is within normal limits. There is no nystagmus. There is no facial droop. Speech is clear. Vision is grossly normal. Ambulation trial reveals wide gait stance, slightly unsteady, but he did not fall. MUSCULOSKELETAL: Good muscle tone. No evidence of trauma. Course 0815: Past medical records reviewed. The patient was evaluated in room A01, and a complete history and physical examination were performed. 24: I spoke to Dr. Wright, neurology at [facility], about the patient's case. 908: I spoke with Jackelyn Patton PA-C [facility], about the patient's case. She will further evaluate the patient. 13: I discussed the plan with the patient. 25: I discussed the results with the patient. Consultations Consultation #1: I spoke to Dr. Wright, neurology at [facility], about the patient's case. Time: 08:24 Consultation #2: I spoke with Jcakelyn Patton PA-C [facility], about the patient's case. She will further evaluate the patient. Time: 09:09 Administered Medications Discontinued Medications Amlodipine Besylate (Norvasc) 5 mg PO NOW ONE Stop: 06/26/18 09:01 Last Admin: 06/26/18 09:07 Dose: 5 mg Meclizine HCl (Antivert) 25 mg PO NOW STA Stop: 06/26/18 08:47 Last Admin: 06/26/18 09:07 Dose: 25 mg Medical Decision Making Differential Diagnosis Differential includes acute coronary syndrome, myocardial infarction, CVA, TIA , anemia, infection, pneumonia, UTI, pyelonephritis, poor nutrition, dehydration , electrolyte disturbance,hypoglycemia. Medical Records Attestation: I reviewed the patient's medical records. Home Medications Current Medication List: was personally reviewed by me Laboratory Data Attestation: I reviewed the patient's lab results. Result diagrams: 06/26/18 08:15 06/26/18 08:15 Lab Results 06/26/18 06/26/18 06/26/18 Range/Units 08:15 08:15 08:15 WBC 10.96 H (4.8-10.8) K/uL RBC 4.47 L (4.7-6.1) M/uL Hgb 13.3 L (14.0-18.0) g/dL Hct 39.2 L (42-52) % MCV 87.7 (80-100) fL MCH 29.8 (25-34) pg MCHC 33.9 (32-36) g/dL RDW Std Deviation 42.0 (36.4-46.3) fL RDW Coeff of [place]one 13.2 (11.5-14.5) % Plt Count 187 (130-400) K/uL MPV 10.0 (7.4-10.4) fL Immature Gran % (Auto) 0.4 % Neut % (Auto) 77.2 % Lymph % (Auto) 16.1 % [place] % (Auto) 5.6 % Eos % (Auto) 0.4 % Baso % (Auto) 0.3 % Immature Gran # (Auto) 0.04 H (0.00-0.02) K/uL Neut # (Auto) 8.48 H (1.4-6.5) K/uL Lymph # (Auto) 1.76 (1.2-3.4) K/uL [place] # (Auto) 0.61 H (0.11-0.59) K/uL Eos # (Auto) 0.04 (0-0.5) K/uL Baso # (Auto) 0.03 (0-0.2) K/uL PT 9.8 (9.0-12.0) Seconds INR 1.0 (0.9-1.1) Sodium 139 (136-145) mmol/L Potassium 3.6 (3.5-5.1) mmol/L Chloride 106 (98-107) mmol/L Carbon Dioxide 25 (21-32) mmol/L Anion Gap 8.0 (3-11) BUN 14 (7-18) mg/dl Creatinine 1.31 (0.6-1.4) mg/dl Est Cr Clr Drug Dosing 52.7 ml/min Est GFR ( Amer) 61.7 Est GFR (Non-Af Amer) 53.3 BUN/Creatinine Ratio 10.6 (10-20) Glucose 166 H (70-99) mg/dl POC Glucose (70-99) Calcium 8.5 (8.5-10.1) mg/dl Magnesium 1.9 (1.8-2.4) mg/dl Total Bilirubin 0.6 (0.2-1) mg/dl AST 13 L (15-37) U/L ALT 20 (12-78) U/L Alkaline Phosphatase 65 (45-117) U/L Total Creatine Kinase 78 (39-308) U/L Troponin I < 0.015 (0-0.045) ng/ml Total Protein 7.3 (6.4-8.2) gm/dl Albumin 3.6 (3.4-5.0) gm/dl Globulin 3.7 (2.5-4.0) gm/dl Albumin/Globulin Ratio 1.0 (0.9-2) TSH 1.770 (0.300-4.500) uIu/ml 06/26/18 06/26/18 Range/Units 08:15 08:18 WBC (4.8-10.8) K/uL RBC (4.7-6.1) M/uL Hgb (14.0-18.0) g/dL Hct (42-52) % MCV (80-100) fL MCH (25-34) pg MCHC (32-36) g/dL RDW Std Deviation (36.4-46.3) fL RDW Coeff of Tyrone (11.5-14.5) % Plt Count (130-400) K/uL MPV (7.4-10.4) fL Immature Gran % (Auto) % Neut % (Auto) % Lymph % (Auto) % [place] % (Auto) % Eos % (Auto) % Baso % (Auto) % Immature Gran # (Auto) (0.00-0.02) K/uL Neut # (Auto) (1.4-6.5) K/uL Lymph # (Auto) (1.2-3.4) K/uL [place] # (Auto) (0.11-0.59) K/uL Eos # (Auto) (0-0.5) K/uL Baso # (Auto) (0-0.2) K/uL PT (9.0-12.0) Seconds INR (0.9-1.1) Sodium (136-145) mmol/L Potassium (3.5-5.1) mmol/L Chloride (98-107) mmol/L Carbon Dioxide (21-32) mmol/L Anion Gap (3-11) BUN (7-18) mg/dl Creatinine (0.6-1.4) mg/dl Est Cr Clr Drug Dosing ml/min Est GFR ( Amer) Est GFR (Non-Af Amer) BUN/Creatinine Ratio (10-20) Glucose (70-99) mg/dl POC Glucose 151 H (70-99) Calcium (8.5-10.1) mg/dl Magnesium (1.8-2.4) mg/dl Total Bilirubin (0.2-1) mg/dl AST (15-37) U/L ALT (12-78) U/L Alkaline Phosphatase (45-117) U/L Total Creatine Kinase (39-308) U/L Troponin I Cancelled (0-0.045) ng/ml Total Protein (6.4-8.2) gm/dl Albumin (3.4-5.0) gm/dl Globulin (2.5-4.0) gm/dl Albumin/Globulin Ratio (0.9-2) TSH (0.300-4.500) uIu/ml Imaging Data Radiologist's Impression: Radiology results as stated below per my review and the radiologist's interpretation: XR chest 1V portable CLINICAL HISTORY: weakness dyspnea COMPARISON STUDY: 11/18/2014 FINDINGS: The bones soft tissues and hemidiaphragms are normal. The cardiomediastinal silhouette is normal. The lungs are clear. The pulmonary vasculature is normal. IMPRESSION: Negative chest. The above report was generated using voice recognition software. It may contain grammatical, syntax or spelling errors. Electronically signed by: Kailash Jung M.D. 06/26/2018 8:[address] head/brain wo con CLINICAL HISTORY: 72 years-old Male presenting with possible cerebrovascular accident, history of left occipital infarct. TECHNIQUE: Multidetector CT imaging of the head was performed without the use of intravenous contrast. IV contrast: None. A dose lowering technique was used consistent with the principles of ALARA (as low as reasonably achievable). COMPARISON: 11/19/2014. CT DOSE (mGy.cm): The estimated cumulative dose is 537.48 mGy.cm. FINDINGS: Dry Sand Molder topogram: Unremarkable. Ventricles and sulci normal in size. No hemorrhage. Old infarct in the left occipital lobe involving the left periventricular white matter at the subpleural horn as well as the overlying cortex. No acute territorial infarct. No mass effect or midline shift. No extra-axial fluid collection. Paranasal sinuses and mastoid air cells clear. Calvarium intact. IMPRESSION: 1. No significant change compared to the prior study. Old left occipital lobe infarct. No acute intracranial abnormality. Electronically signed by: Rafi Marie M.D. 06/26/2018 8:21 AM ECG Data Attestation: I personally reviewed and interpreted this ECG as follows: Indication: other (neurological symptoms) Rate (beats per minute): 84 Rhythm: normal sinus Findings: no ST elevation and no ectopy Blood Pressure Blood Pressure Findings: Elevated blood pressure Blood Pressure Disposition: further management by hospitalist DANIEL Field This is a 72-year-old male who presents to the ED with a chief complaint of strokelike symptoms. The patient reports that he awoke this morning around 3: 30 AM. He felt like his vision was blurry and he was unsteady on his feet. He also reports some nausea and dry heaves. The patient states that he continued having symptoms this morning including some numbness in his upper and lower lip as well as tongue. He felt unsteady with his gait. He continued having symptoms as well as some double vision when looking at things beyond 10 feet or so. He came in through triage and was a stroke alert. On my evaluation, the stroke exam did not reveal any focal deficits. His symptoms are mostly subjective. He was able to ambulate although his gait seem to be somewhat wide stance. Cerebellar testing was normal. He did not appear to have any motor or sensory deficits. He states that his dizziness seemed to be exacerbated by turning his head. The lip numbness has been going on for only a couple of hours. The patient reports a history of high blood pressure but does not take his current blood pressure medications and he has a history of high cholesterol. His initial blood pressure was 189/96. An EKG shows a normal sinus rhythm. CT scan of the brain reveals an old left-sided occipital infarct. He states that he had a stroke in 2014. CBC and chemistry panel was unremarkable. Chest x-ray was negative for acute disease. The patient was given Norvasc 5 mg p.o. for his hypertension. He was given meclizine p.o. for his dizziness. Tele-stroke was performed although I spoke with the neurologist and they did not feel the patient was a thrombolytic candidate based on his symptoms and history. They did recommend admission for neurological assessment and further imaging studies and evaluation. Impression & Plan Ataxia, Diplopia Discharge Plan Visit Data Chief Complaint: Neuro Symptoms/Deficit Stated Complaint: EYE BLURRY,LIPS NUMB,NOT FEELING WELL,DIZZY ED Provider: Mani Gaytan Discharge Problem: Ataxia, Diplopia Patient Disposition: Being Evaluated by Hospitalist Forms Stand Alone Forms: [facility] Prescriptions Prescriptions: No Action multivitamin Tablet 1 tab PO QAM RF: 0 ibuprofen 200 mg Capsule 200 mg PO UD RF: 0 aspirin 81 mg Tablet,Delayed Release (Dr/Ec) 81 mg PO HS RF: 0 alfuzosin 10 mg tablet extended release 24 hr 10 mg PO PM RF: 0 omega 5-myi-jwh-fish oil [Fish Oil] 1,000 mg (120 mg-180 mg) Capsule 1 cap PO 1200 RF: 0 acetaminophen [Tylenol Extra Strength] 500 mg Tablet 500 mg PO Q6H PRN (Reason: Pain) RF: 0 Pertussin Cough Syrup 10 ml PO UD RF: 0 Referrals Referrals: Rafi Alejandro MD [Primary Care Provider] - The scribe's documentation has been prepared under my direction and personally reviewed by me in its entirety. I confirm that the note above accurately reflects all work, treatment, procedures, and medical decision making performed by me.
[2018-06-26] MEDS ORDERED: PHARMACIST DISCHARGE MED REC CONSULT PRN (11:03)
[2018-06-26] MEDS ORDERED: ACETAMINOPHEN 500 MG TAB PO PRN (11:03)
[2018-06-26 11:32] LABS: Basophils # (auto) 0.02 K/uL (0-0.2); Basophils % (auto) 0.1 %; Hematocrit (blood only) 40.6 % (42-52); Immature Granulocytes # (auto) 0.04 K/uL (0.00-0.02); Immature Granulocytes % (auto) 0.3 %; Lymphocytes # (auto) 1.22 K/uL (1.2-3.4); Lymphocytes % (auto) 9.1 %; Mean Corpuscular Volume 87.7 fL (80-100); Monocytes # (auto) 0.76 K/uL (0.11-0.59); Monocytes % (auto) 5.6 %; Neutrophils # (auto) 11.44 K/uL (1.4-6.5); Neutrophils % (auto) 84.9 %; Platelet Count 182 K/uL (130-400); RDW Coefficient of Variation 13.2 % (11.5-14.5); RDW Standard Deviation 42.1 fL (36.4-46.3); Red Blood Count 4.63 M/uL (4.7-6.1); White Blood Count 13.48 K/uL (4.8-10.8)
[2018-06-26 11:38] LABS: Mean Corpuscular Hgb Conc 34.5 g/dL (32-36)
[2018-06-26 11:40] LABS: Partial Thromboplastin Time 25.2 Seconds (21.0-31.0)
[2018-06-26 11:47] LABS: BUN Creatinine Ratio 12.3 (10-20); Calcium 8.8 mg/dl (8.5-10.1); Creatinine Clr Calc Pharmacy 61.1 ml/min; Est GFR (African American) 73.8; Est GFR (Non-African American) 63.7; Magnesium 2.1 mg/dl (1.8-2.4)
[2018-06-26 13:09] LABS: Estimated Average Glucose 111 mg/dl
[2018-06-26] MEDS: OMEGA-3 (PURIFIED FISH OIL) 1 GM CAP PO SCH (13:22)
[2018-06-26 15:49] LABS: Appearance Urine Clear (Clear); Bilirubin Urine Negative (Negative); Color Urine Yellow; Glucose Urine UA Negative (Negative); Ketones Urine 1+ (Negative); Leukocyte Esterase Urine Negative (Negative); Nitrite Urine Negative (Negative); Protein Urine Negative (Negative); Specific Gravity Urine 1.023 (1.000-1.030); Urobilinogen Urine Negative (Negative)
[2018-06-26] MEDS ORDERED: GADOBUTROL 65ML VIAL IV PRN (17:23)
[2018-06-26] MEDS ORDERED: OPTIRAY 320 125ml IV PRN (17:29)
--- NOTE | 2018-06-26 17:42 | Magnetic Resonance Report ---
MRI OF THE BRAIN WITHOUT AND WITH IV CONTRAST CLINICAL HISTORY: Stroke. Blurred vision. Double vision. COMPARISON STUDY: MRI of the brain November 18, [address] June 26, 2018. TECHNIQUE: Utilizing a 1.5 Lakisha magnet and dedicated coil, multiplanar, multiecho imaging of the br ain was performed pre and postcontrast administration. IV administration of 8 mL of Gadavist contras t was uneventful. FINDINGS: There are no foci of restricted diffusion to suggest acute infarct. No acute intracranial h emorrhage, midline shift or mass effect is present. Ventricular system is normal. Basilar cisterns ar e patent. There are no extra-axial collections. Flow-voids for the major intracranial vessels are pre sent. There is no intracranial mass or pathologic enhancement. Old left occipital lobe infarct is not ed. White matter T2 hyperintense foci suggest small vessel disease. There is a small left frontal lob e infarct as well. Calvarial signal is maintained. There is mild ethmoid sinus mucosal thickening. IMPRESSION: 1. No acute intracranial findings. 2. Several old infarcts. 3. Mild small vessel disease. 4. No intracranial mass or pathologic enhancement. Electronically signed by: Juan A Galindo M.D. 06/26/2018 5:41 PM
--- NOTE | 2018-06-26 17:57 | CT Scan Report ---
CT angio neck with con, CT angio head wo/w CLINICAL HISTORY: 72 years-old Male with stroke. Acute strokelike symptoms COMPARISON STUDY: MRI brain 06/26/2017, CT head 06/26/2018, CTA head and neck 11/19/2014 TECHNIQUE: Follo wing the IV administration of 119 mL of Optiray 320, CT angiogram of the head and neck was performed from the aortic arch to the skull base. Images are reviewed in the axial, sagittal, and coronal plane s. 3-D MIPS images are created and assessed. IV contrast was administered without complication. All m easurements were calculated based on NASCET criteria. Additional noncontrast head CT was obtained. A dose lowering technique was utilized adhering to the principles of ALARA. CT DOSE: 1252.91 mGy.cm FINDINGS: CT HEAD: Encephalomalacia from remote infarct noted about the left occipital lobe. Mild atrophy. Ill-defined h ypodensities about the white matter are suggestive of chronic microvascular ischemic changes. 4 mm ca lcification of the third ventricle suggests choroid plexus with colloid cyst thought to be less likel y. No acute intracranial hemorrhage, midline shift, abnormal extra-axial collections, hydrocephalus o r intracranial mass. No acute territorial infarct. No calvarial fracture. Mastoid air cells and middle ear cavities are clear. Paranasal sinuses are gen erally clear. Soft tissues and orbits are within normal limits. CTA HEAD AND NECK: Normal three-vessel morphology of aortic arch with moderate mixed plaque formation. Patency of the im aged bilateral subclavian arteries. The bilateral common carotid arteries are widely patent. Moderate mixed plaque formation about the right carotid bulb causes less than 50% luminal narrowing. Mild ath eromatous plaque about the left carotid bulb and proximal left ICA without significant stenosis. Calc ified plaque about the cavernous, clinoid and supraclinoid segments. Patency of the bilateral middle and anterior cerebral arteries. Anterior communicating artery appears normal and patent. Dominant right vertebral artery. Tortuosity and atheromatous plaque formation about the proximal righ t vertebral artery is noted resulting in less than 50% luminal narrowing. The remainder of the right vertebral artery appears normal and is patent. Diminutive left vertebral artery, likely developmental . Tortuosity about the proximal V3 segment left vertebral artery on image 3:30 series 4 without high- grade stenosis. The majority of the left vertebral artery terminates into the left PICA. Basilar louie ry is normal and patent. Patency of the bilateral posterior cerebral arteries. No aneurysm, dissectio n, high-grade stenosis or proximal branch occlusion. Cerebral venous sinuses appear patent and within normal limits. Lung apices are generally clear. Mild biapical pleural-parenchymal scarring. No prevertebral soft tis marlene swelling. Soft tissues are unremarkable. No adenopathy. Orbits are unremarkable. Mastoid air cell s and middle ear cavities are clear. Minimal mucosal thickening of the ethmoid and maxillary sinuses. Multilevel spondylitic spurring and facet arthrosis of the spine. IMPRESSION: 1. Unremarkable CTA without aneurysm, dissection, high-grade stenosis or proximal branch occlusion. 2. Encephalomalacia from remote infarct about the left occipital lobe. The above report was generated using voice recognition software. It may contain grammatical, syntax o r spelling errors. Electronically signed by: Gerardo Palomo M.D. 06/26/2018 5:56 PM
[2018-06-26] MEDS: BUDESONIDE/FORMOTEROL FUMARATE 80/4.5 60 PUFFS/INHALER INH SCH (20:10)
[2018-06-26] MEDS: IPRATROPIUM BROMIDE/ALBUTEROL respimat INH INH SCH (20:10)
[2018-06-26] MEDS: guaiFENesin 600 MG TABCR PO SCH (20:10)
[2018-06-26] MEDS: ASPIRIN 81 MG ECTAB PO SCH (20:10)
[2018-06-26] MEDS: ALFUZOSIN HCL 10 MG TAB PO SCH (20:10)
[2018-06-27 07:28] LABS: Albumin Level 3.1 gm/dl (3.4-5.0); Bilirubin Direct 0.2 mg/dl (0-0.2); Bilirubin,Total 0.5 mg/dl (0.2-1); Total Protein 6.7 gm/dl (6.4-8.2)
[2018-06-27] MEDS: IPRATROPIUM BROMIDE/ALBUTEROL respimat INH INH SCH ×4 (08:08→20:27)
[2018-06-27] MEDS: BUDESONIDE/FORMOTEROL FUMARATE 80/4.5 60 PUFFS/INHALER INH SCH ×2 (08:08→20:27)
[2018-06-27] MEDS: SIMVASTATIN 40 MG TAB PO SCH (08:09)
[2018-06-27] MEDS: MULTIVITAMIN TAB PO SCH (08:09)
[2018-06-27] MEDS: guaiFENesin 600 MG TABCR PO SCH ×2 (08:09→20:28)
--- NOTE | 2018-06-27 09:30 | Neurology Consultation ---
Date of Consultation June 27, 2018 Assessment & Plan (1) Arterial ischemic stroke, vertebrobasilar, brainstem, acute: This patient's clinical presentation included many symptoms suggestive of vertebrobasilar stroke or TIA. Although his symptoms are largely improved I suspect he has a mild residual right nerve palsy. To my eye, his MRI does reveal a punctate area of restricted diffusion within the right pontine tegmentum adjacent to the fourth ventricle suggestive of a small acute ischemic stroke. An ischemic stroke in this area would explain his residual right 6th nerve palsy and would also be consistent with a vertebrobasilar localization as initially suspected based on presenting symptoms. Fortunately, his CT angiography is negative for basilar thrombosis although he does have a dominant right vertebral artery with an approximate 50% proximal stenosis. Noncompliance with aspirin therapy may have contributed to his current presentation. In addition to continuing with daily low-dose aspirin I would like this patient to start Plavix 75 mg/day which she should continue for the next 3 months. After which, he may discontinue Plavix and continue with aspirin monotherapy. I agree with starting simvastatin. This patient should also have an outpatient ophthalmology assessment to reassess his right 6th nerve palsy. I do anticipate some additional improvement in his diplopia going forward although I did explain to the patient that it is possible he may have some chronic residual diplopia that may require corrective prisms. His current blood pressure is appropriate although he is modestly hypertensive this morning. He may benefit from starting an antihypertensive medication if his blood pressure remains elevated. Would avoid aggressively lowering his blood pressure at this time, however. No further immediate recommendations. History of Present Illness Reason for Consultation: TIA Requesting Physician: Jacquelin Patton PA-C Attending Physician: Jc Mcneal History of Present Illness The patient is a 72-year old male who awoke early yesterday morning at around 3 AM with dizziness, blurry vision, horizontal diplopia at a distance, staggering gait, and associated numbness around the lips as well as some nausea. The symptoms have markedly improved although he continues to complain of mild residual horizontal diplopia at a distance, a bit worse when looking to the right. He denies headache, neck pain, fever, or recent illness. Past medical history notable for stroke and left carotid endarterectomy in 2014. The patient admits to some noncompliance with his aspirin therapy recently. A CT of the head revealed a chronic left occipital infarct. Electrocardiogram reveals a normal sinus rhythm, 84 bpm. His serum glucose was 166. A CT angiogram of the head and neck was unremarkable, there is a moderate degree of atherosclerotic plaque within the dominant right vertebral artery as well as at the right carotid bulb. A brain MRI reveals the chronic left occipital lobe infarct as well as a small chronic left frontal lobe stroke. To my eye, there is a punctate area of restricted diffusion within the right pontine tegmentum, adjacent to the fourth ventricle, potentially consistent with a small acute ischemic infarct. This finding was not specifically described by the interpreting radiologist although could potentially be attributed to T2 shine through. Allergies Allergy/AdvReac Type Severity Reaction Status Date / Time No Known Allergies Allergy Unverified 06/26/18 09:00 Home Medications Home Medications Medication Instructions Recorded Confirmed Type Pertussin Cough Syrup 10 ml PO UD 06/26/18 06/26/18 History Symbicort 2 puff INHALATION BID 06/26/18 06/26/18 History acetaminophen [Tylenol Extra 500 mg PO Q6H PRN 06/26/18 06/26/18 History Strength] alfuzosin 10 mg PO PM 06/26/18 06/26/18 History aspirin 81 mg PO HS 06/26/18 06/26/18 History ibuprofen 200 mg PO UD 06/26/18 06/26/18 History multivitamin 1 tab PO QAM 06/26/18 06/26/18 History omega [id number] oil [Fish Oil] 1 cap PO 1200 06/26/18 06/26/18 History Patient History Medical History BPH (benign prostatic hyperplasia) Asthma Anemia HLD (hyperlipidemia) Ataxia (Acute) Diplopia (Acute) Hypertension (Chronic) CVA (cerebral vascular accident) (Resolved) Surgical History H/O carotid endarterectomy Family History Other Family history non-contributory Social History Current Living Situation: Spouse Other Information That Helps Us Care for You: No Feels Safe at Home: Yes Safety Concerns: Feels Safe At This Time Smoking Status: Former smoker Tobacco Type: cigarettes Do You Dip or Chew Tobacco: No Second Hand Exposure: No Tobacco Cessation Education Requested by Patient: No Hx Alcohol Use: Yes Alcohol type: beer Alcohol Intake Frequency: 0-2 drinks per day Hx Substance Use: No Beliefs That Will Affect Care: None Preferred Language: Nicaraguan Communication Ability: Effective 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 Review of Systems Constitutional: no fever and no chills Eyes: as per Subjective / HPI and + diplopia Ear, Nose, Mouth, Throat: + dizziness; no hearing loss Respiratory: no cough and no dyspnea Cardiovascular: no chest pain and no palpitations Gastrointestinal: no abdominal pain and no vomiting Genitourinary (Male): no dysuria Musculoskeletal: no neck pain and no myalgia Integumentary: no rash and no lesions Neurologic: as per Subjective / HPI Psychiatric: no depression and no anxiety Hematologic / Lymphatic: no easy bleeding and no lymphadenopathy Physical Exam 2 Vital Signs (Past 24 Hours): Last Vital Signs Temp 36.9 C 06/27/18 06:54 Pulse 60 06/27/18 07:30 Resp 16 06/27/18 06:54 BP 154/83 H 06/27/18 06:54 Pulse Ox 94 06/27/18 06:54 Physical Exam: The patient is a well-developed, well-nourished elderly male. He is alert and fully oriented. Recent and remote memory intact. Attention and concentration normal. Patient exhibits a normal spontaneous speech pattern. He is able to name objects and repeat phrases. Speech is non- dysarthric. Patient exhibits an age-appropriate fund of knowledge and normal vocabulary. Visual danielle full to confrontation. Visual acuity normal. Pupils equal round reactive to light and accommodation. Eye movements normal. He does report worsening horizontal diplopia with rightward gaze. No nystagmus. Facial sensation intact. There is normal facial symmetry and strength. Hearing intact. Palate elevates to midline. Shoulder shrug intact. Tongue protrudes to midline. Sensation intact to all modalities in all 4 limbs. Deep tendon reflexes intact and symmetrical. Plantar responses downgoing bilaterally. There is no dysdiadochokinesia or dysmetria finger to nose or heel to gomez bilaterally. Ophthalmoscopic examination reveals normal- appearing optic disks and posterior segments. No papilledema or hemorrhages. Carotid pulses normal bilaterally, no bruits to auscultation. Gait and station not tested due to safety concerns. Muscle strength and tone normal for all 4 limbs. No atrophy. No abnormal movements observed.
[2018-06-27] MEDS ORDERED: CLOPIDOGREL BISULFATE 75 MG TAB PO ONE (11:08)
[2018-06-27] MEDS: OMEGA-3 (PURIFIED FISH OIL) 1 GM CAP PO SCH (11:58)
--- NOTE | 2018-06-27 20:14 | Hospitalist Progress Note ---
Date of Service June 27, 2018 Assessment & Plan (1) Arterial ischemic stroke, vertebrobasilar, brainstem, acute: Appreciate neuro consultation. Dr. Flowers feels there is a mild right 6th nerve palsy (I agree) and a suspected right-sided pontine infarct that would explain his symptoms. Fortunately the diplopia is much improved today and the ataxia is also improved. Work-up thus far including CTAs, echo, telemetry, etc do not show a specific cause of the stroke. Typically, however, this type of stroke tends to be ischemic/thrombotic in a small vessel. With that said, in light of multiple other strokes seen on imaging, will perform an outpatient 30-day event monitor to exclude a. fib, etc. Appreciate Dr. Flowers's recommendation for 3 months of dual antiplatelet therapy (aspirin with plavix) followed by aspirin therapy only. Continue statin agent. Speech therapy has performed their assessment; no needs identified. Await PT, OT evals. Can likely d/c home tomorrow after PT, OT evals. Has ophtho follow-up with Dr. Berger at [facility] early afternoon tomorrow. BPs quite acceptable today. No changes or additions in meds. Present on Admission?: Yes (2) Ataxia: 2nd to brainstem stroke - resolved Present on Admission?: Yes (3) Diplopia: likely 2nd to pontine stroke leading to rightsided 6th nerve palsy this, too, is already improved ophtho follow-up tomorrow scheduled with Dr. Chua at [facility] Present on Admission?: Yes (4) BPH (benign prostatic hyperplasia): no issues at this time (5) Asthma: with possible very mild exacerbation the exacerbation is improved with use of combivent defer on systemic steroids for now (6) HLD (hyperlipidemia): cont high-intensity statin with simvastatin 40mg daily LDL noted to be about 130 on lipids check (7) Hypertension: allow permissive HTN at this time BPs today have been acceptable (8) DVT prophylaxis: if patient stays beyond tomorrow then add heparin SC updated at bedside anticipate d/c home tomorrow no driving until cleared by ophthomology Subjective double vision is much improved he had patched one of the lenses on his eyeglasses but removed it today and noted his double vision was much better ataxia is improved walking/ambulating much better no vertigo no new neuro symptoms tele stable overnight w/o a. fib or other dysrhythmia Constitutional: no fever Eyes: + diplopia; no worsening vision Respiratory: no cough and no dyspnea Cardiovascular: no chest pain Gastrointestinal: no abdominal pain, no nausea and no vomiting Neurologic: no gait abnormality, no localized weakness, no loss of sensation and no headache(s) Physical Exam 2 Vital Signs (Past 24 Hours): Last Vital Signs Temp 36.8 C 06/27/18 19:38 Pulse 61 06/27/18 19:38 Resp 18 06/27/18 19:38 BP 156/84 H 06/27/18 19:38 Pulse Ox 96 06/27/18 19:38 Constitutional: well developed and well nourished; no acute distress Eyes: PERRL right lateral abducens palsy much improved today with near- normal extraocular movements ENMT: external ear and nose normal, oropharynx normal Respiratory: normal respiratory effort, lungs clear to auscultation Cardiovascular: Rate/Rhythm: regular rate and regular rhythm Heart Sounds: normal S1, normal S2 and + murmur (1/6 RUSB) Vessels: posterior tibial pulses present and dorsalis pedis pulses present; no JVD Gastrointestinal (Abdomen): normal bowel sounds, soft, nontender, no hepatosplenomegaly Neurologic: moves all extremities Speech / Cognition: normal speech Motor/Sensory: no tremor finger/nose/finger maneuver w/o dysmetria Results & Data Laboratory Results Laboratory Results - last 24 hr 06/27/18 06/27/18 01:26 06:26 POC Glucose 87 Total Bilirubin 0.5 Direct Bilirubin 0.2 AST 11 L ALT 17 Alkaline Phosphatase 55 Total Protein 6.7 Albumin 3.1 L Triglycerides 101 Cholesterol 200 LDL Cholesterol, Calc 130 VLDL Cholesterol, Calc 20 HDL Cholesterol 50 Cholesterol/HDL Ratio 4 _ (1) Arterial ischemic stroke, vertebrobasilar, brainstem, acute Laterality: right Qualified Code(s): I63.211 - Cerebral infarction due to unspecified occlusion or stenosis of right vertebral artery; I63.22 - Cerebral infarction due to unspecified occlusion or stenosis of basilar artery (2) BPH (benign prostatic hyperplasia) Lower urinary tract symptom presence: symptoms absent Qualified Code(s): N40.0 - Benign prostatic hyperplasia without lower urinary tract symptoms (3) Asthma Asthma severity: moderate Asthma persistence: persistent Asthma complication type: uncomplicated Qualified Code(s): J45.40 - Moderate persistent asthma, uncomplicated (4) HLD (hyperlipidemia) Hyperlipidemia type: mixed hyperlipidemia Qualified Code(s): E78.2 - Mixed hyperlipidemia (5) Hypertension Hypertension type: essential hypertension Qualified Code(s): I10 - Essential (primary) hypertension
[2018-06-27] MEDS: ALFUZOSIN HCL 10 MG TAB PO SCH (20:27)
[2018-06-27] MEDS: ASPIRIN 81 MG ECTAB PO SCH (20:28)
[2018-06-28 07:12] LABS: Calcium 8.5 mg/dl (8.5-10.1); Creatinine Clr Calc Pharmacy 52.3 ml/min; Est GFR (African American) 60.1; Est GFR (Non-African American) 51.8; Potassium 3.5 mmol/L (3.5-5.1)
[2018-06-28] MEDS: IPRATROPIUM BROMIDE/ALBUTEROL respimat INH INH SCH (08:50)
[2018-06-28] MEDS: BUDESONIDE/FORMOTEROL FUMARATE 80/4.5 60 PUFFS/INHALER INH SCH (08:51)
[2018-06-28] MEDS: guaiFENesin 600 MG TABCR PO SCH (08:51)
[2018-06-28] MEDS: MULTIVITAMIN TAB PO SCH (08:51)
[2018-06-28] MEDS: SIMVASTATIN 40 MG TAB PO SCH (08:51)
[2018-06-28] MEDS ORDERED: CLOPIDOGREL BISULFATE 75 MG TAB PO SCH (09:00)
[2018-06-28] MEDS ORDERED: STROKE PATIENT DISCHARGE STA (10:28)
--- NOTE | 2018-06-28 10:37 | Discharge Summary ---
Date of Service June 28, 2018 Admission HPI Per Admitting Provider This is a 72 yo M with PMHx of hx of stroke in 2015 s/p carotid endarterectomy, HTN, HLD, remote smoking history and quit in the 1970s. He presents after waking up early this morning and noticed that his gait was unsteady as he attempted to walk to the bathroom. Patient also noticed that his vision seemed blurred, as well as had double vision. Double vision seems to be worse with objects which are approximately 5 feet to 15 feet away from him. He does not notice any decrease in peripheral vision, or light sensitivity. He denies any shortness of breath or chest pain, palpitations or flutter. Patient has never experienced these symptoms before. During his last stroke he had aphasia and difficulty word finding. Patient presented this morning hours after the initiation of symptoms, no thrombolytics were given. The ER did give the patient 1 dose of meclizine for possible vertigo and he reports that diplopia/ blurred vision seems to be improving at this time. Initially his blood pressure was elevated in the 190s over 80s and he has recently been taking off his Norvasc x1 year. Principal Diagnosis Acute ischemic CVA Discharge Exam Constitutional WD/WN, vitals as above Eyes PERRL, conjunctivae normal, anicteric sclerae ENMT external ear and nose normal, oropharynx normal Neck trachea midline, no thyromegaly Respiratory normal respiratory effort, lungs clear to auscultation Cardiovascular RRR, no murmur, no edema Gastrointestinal (Abdomen) normal bowel sounds, soft, nontender, no hepatosplenomegaly Musculoskeletal Extremities: extremities normal to inspection; no cyanosis and no clubbing Skin no rashes, warm and dry Neurologic PERRL, EOMI, accommodation nl, no face palsy, no dysarthria CN's II-XI intact bilaterally, moves all extremities and awake; no focal motor deficits Psychiatric A+Ox3, euthymic affect Discharge Data Allergies Allergy/AdvReac Type Severity Reaction Status Date / Time No Known Allergies Allergy Unverified 06/26/18 09:00 Consultations Neurology Procedures Performed ECHO: grade 1 diastolic dysfunction, LVEF normal Ordered Studies 06/26/18 08:08 CT head/brain wo con Stat 06/26/18 13:01 CT angio head wo/w Routine MR brain wo/w con Routine 06/26/18 13:13 CT angio neck with con Routine CXR Hospital Course (1) Arterial ischemic stroke, vertebrobasilar, brainstem, acute: Appreciate neuro consultation. Dr. Flowers feels there is a mild right 6th nerve palsy (I agree) and a suspected right-sided pontine infarct that would explain his symptoms. Fortunately the diplopia is much improved, and actually clinically resolved on the day of discharge, and the ataxia is also resolved. Work-up thus far including CTAs, echo, telemetry, etc do not show a specific cause of the stroke. Typically, however, this type of stroke tends to be ischemic/thrombotic in a small vessel. With that said, in light of multiple other strokes seen on imaging, will perform an outpatient 30-day event monitor to exclude a. fib, etc. Appreciate Dr. Flowers's recommendation for 3 months of dual antiplatelet therapy (aspirin with plavix) followed by aspirin therapy only. Restarted on statin agent which he had stopped as an outpatient previously Speech therapy has performed their assessment; no needs identified. PT, OT evals performed and stable for dc to home Has ophtho follow-up with Dr. Berger at [facility] today after discharge-needs assessment and perhaps visual field testing given OLD CVA in left occipital lobe also, in addition to his right 6th nerve palsy acutely here. Needs to NOT DRIVE until cleared by Ophthalmology BPs quite acceptable today. No changes or additions in meds. (2) Ataxia: 2nd to brainstem stroke - resolved (3) Diplopia: likely 2nd to pontine stroke leading to rightsided 6th nerve palsy this, too, is already improved/resolved as above ophtho follow-up today scheduled with Dr. Chua at [facility] (4) BPH (benign prostatic hyperplasia): no issues at this time (5) Asthma: with possible very mild exacerbation the exacerbation is improved with use of combivent defer on systemic steroids for now (6) HLD (hyperlipidemia): Restarted high-intensity statin with simvastatin 40mg daily LDL noted to be about 130 on lipids check (7) Hypertension: allowed permissive HTN BPs today have been acceptable (8) DVT prophylaxis: SCDs updated at bedside Stable for dc to home today no driving until cleared by ophthomology Total Time Total Time Spent Total Time Spent (In Minutes): >30 min Total Time Includes: Examination of the Patient, Discharge Planning, Medication Reconciliation and Communication With Other Providers (OT) Discharge Plan Discharge Items Patient Disposition: Home - Self-Care Reason For Visit: TIA, DIPLOPIA, LLE WEAKNESS Discharge Diagnosis: Presumed acute ischemic CVA, Diplopia Condition: Good Discharge Goals: Diagnostic testing, Learn about illness, Prevent disease, Screening and Therapeutic intervention Activity: Resume your previous activity Lifting: Gradually increase as tolerated Bathing: No limitations Exercise/Sports: Gradually increase as tolerated Driving/Machine Use Comment: No driving until cleared by Ophthalmology to do so Non-emergency contact: Primary Care Provider and Neurologist Call non-emergency contact if: you have any medication questions and your symptoms worsen Follow-up/Referrals: Rafi Alejandro MD [Primary Care Provider] - 07/02/18 4:15 pm (Please, follow up with Dr. Rafi Alejandro on SundayJuly 02 at 4:15 pm. *If you have any questions, call the office at [phone].) Les Flowers MD [Physician] - 07/25/18 8:45 am (Please, follow up at [facility] Neurology Office with Dr. Les Flowers on July 25 at 9:00 am (arrive 8:45 am). *This office is located at [address] in [place]. If you need to change this appointment, call the office at [phone].) Syd Berger MD [Physician] - 06/28/18 1:00 pm (Please, follo up at [facility] with Dr. Berger on SundayJune 28 at 1:15 pm (arrive at 1:00 pm). *This office is located at [address] [place] [address] in [place]. The office phone number is [phone].) Diet: Heart Healthy Add Provider Instructions: You were admitted with dizziness and double vision. The Neurologist thinks you had a small stroke in your brainstem that caused your symptoms. Fortunately, they all seem to be resolved. It is important that you see the [facility] today as scheduled to see if your vision issues have completely resolved and to determine if it is safe for you to be driving. You will have a 30 day cardiac event monitor mailed to your house to wear--this will assess for atrial fibrillation to see if this was the cause of your stroke. Because you have had multiple strokes, it is important to always stay on your simvastatin, regardless of the "numbers" of your cholesterol. Also, Plavix will be added (in addition to your Aspirin) for the next 3 months. After 3 months, you can return to taking a baby aspirin once daily by itself. Please follow up with the Neurologist and PCP as scheduled for you. Risk Factors for Stroke: You can reduce your chances of stroke by working with your medical provider to adopt a healthy lifestyle. Some specific ways to lower your chance of stroke are: * If you are a smoker, now is the time to stop smoking cigarettes * If you are diabetic, improve the control of your blood sugars * Avoid excessive amounts of alcohol * Control high blood pressure * Lose weight if you are overweight * Be sure to lead an active lifestyle * Eat a healthy diet low in salt, cholesterol and fat You should know about other risk factors for stroke that you are unable to control. These include: * Age 55 years or older * Male gender * Certain racial groups: , or / * Family History of Stroke, Mini stroke or Heart Attack * Sickle Cell Disease Follow Up: It is important for you to keep your follow up appointments with your medical provider. Who to Call and When: Medical Emergencies: Call 911 immediately if you experience any of the following warning signs and symptoms of Stroke: * Sudden numbness or weakness of the face, arm or leg, especially on one side of the body * Sudden confusion, trouble speaking or understanding * Sudden trouble seeing in one or both eyes * Sudden trouble walking, dizziness, loss of balance or coordination * Sudden severe headache with no cause Do not delay calling 911 if you experience any warning signs or symptoms of a stroke. Delay in seeking medical attention may affect what treatments can be given to you. . Prescriptions: New clopidogrel 75 mg Tablet 75 mg PO QAM Qty: 30 RF: 2 simvastatin 40 mg Tablet 40 mg PO DAILY Qty: 30 RF: 5 ipratropium-albuterol [Combivent Respimat] 20-100 mcg/actuation Mist 1 puff Inhalation QID PRN (Reason: cough or wheeze) Qty: 1 RF: 0 Continue multivitamin Tablet 1 tab PO QAM RF: 0 aspirin 81 mg Tablet,Delayed Release (Dr/Ec) 81 mg PO HS RF: 0 alfuzosin 10 mg tablet extended release 24 hr 10 mg PO PM RF: 0 omega 9-cie-yqz-fish oil [Fish Oil] 1,000 mg (120 mg-180 mg) Capsule 1 cap PO 1200 RF: 0 acetaminophen [Tylenol Extra Strength] 500 mg Tablet 500 mg PO Q6H PRN (Reason: Pain) RF: 0 Pertussin Cough Syrup 10 ml PO UD RF: 0 Symbicort 80 mcg 2 puff Inhalation BID RF: 0 Discontinued ibuprofen 200 mg Capsule 200 mg PO UD RF: 0 Visit Report Forms: [facility] Portal Stand-Alone Forms: [facility] Discharge Orders: Discharge Order (Routine); Ordered 06/28/18 Ordered By: Alison Jim Admission Data Admit Date/Time: 06/26/18 10:02 Attending Provider: Alison Jim Admit Provider: Jc Mcneal Primary Care Provider: Rafi Alejandro Other Providers: Jc Mcneal ; Les Flowers Service: Telemetry Other Pending Studies at Discharge: No
--- NOTE | 2018-06-28 10:59 | Pharmacy Report ---
Pharmacist Stroke Counseling - Date of Service June 28, 2018 - Scope: Pharmacy has been consulted to provide medication discharge counseling for this patient admitted with [ischemic stroke] [hemorrhagic stroke] [transient ischemic attack] as per the Pharmacist Discharge Counseling for Stroke Patients Protocol. - Medications on Discharge: Home Medications Medication Instructions Recorded Confirmed Pertussin Cough Syrup 10 ml PO UD 06/26/18 06/26/18 Symbicort 2 puff INHALATION BID 06/26/18 06/26/18 acetaminophen [Tylenol Extra 500 mg PO Q6H PRN 06/26/18 06/26/18 Strength] alfuzosin 10 mg PO PM 06/26/18 06/26/18 aspirin 81 mg PO HS 06/26/18 06/26/18 multivitamin 1 tab PO QAM 06/26/18 06/26/18 omega 8-jud-rif-fish oil [Fish Oil] 1 cap PO 1200 06/26/18 06/26/18 New Rx's Medication Instructions Recorded clopidogrel 75 mg PO QAM #30 tab 06/27/18 ipratropium-albuterol [Combivent 1 puff INHALATION QID PRN #1 06/27/18 Respimat] inhaler simvastatin 40 mg PO DAILY #30 tab 06/27/18 - Action: The above medications, specifically ones for stroke treatment/prophylaxis, have been reviewed in detail with the patient and/or patient customer operations representative(s) prior to discharge. This includes indication, common adverse reactions, drug interactions, and medication administration. Medication counseling has been employed using the teach-back method to ensure understanding. - Outcome: The patient and/or patient customer operations representative(s) have demonstrated understanding of the medications. Please note, they are aware that the pharmacist will call them within 72 hours post-discharge to confirm that the appropriate medications are being taken and answer any further medication related questions the patient might have at that time. Contact information Individual to be contacted: Aneudy Pitts Relationship to patient (if applicable): pt Phone number: [phone] Best time to call: [phone] Additional comments: spoke with Mr. Pitts re: d/d interactions, ADEs, and other major counseling pts re : his new Rx for Plavix 75mg QD x3 months. He endorses taking prilosec PRN. i discouraged it's use and made him aware of the interaction bt that and plavix. he verbalized understanding. Thank you for allowing pharmacy to be involved in the care of this patient. Please call [phone] or [phone] with any additional questions
--- NOTE | 2018-07-01 11:36 | Pharmacy Report ---
Pharmacist Post D/C Phone Note - Phone Note: Date of phone call: July 01, 2018. Individual with whom pharmacist spoke to: JEN SUÁREZ The following questions were reviewed during the phone call with responses listed below each: Can you tell me the medications that you are currently taking as well as when and how you take each medication? -See Table Below When have you missed any doses of your medications? - no What side effects are you having from your medications, specifically, the new medications you were started on? - slightly lightheaded What questions do you have about your medications? - none What problems are you having obtaining your medications? - None plavix rx costs $4/month When is your next appointment with your primary care doctor? - 07/02 @8995 Additional comments: - none As per the Pharmacist Discharge Counseling for Stroke Patients Protocol, this phone call has been completed within 72 hours of discharge. Thank you for allowing us to be involved in the care of this patient. - Home Medications: Home Medications Medication Instructions Recorded Confirmed Pertussin Cough Syrup 10 ml PO UD 06/26/18 06/26/18 Symbicort 2 puff INHALATION BID 06/26/18 06/26/18 acetaminophen [Tylenol Extra 500 mg PO Q6H PRN 06/26/18 06/26/18 Strength] alfuzosin 10 mg PO PM 06/26/18 06/26/18 aspirin 81 mg PO HS 06/26/18 06/26/18 multivitamin 1 tab PO QAM 06/26/18 06/26/18 omega 8-oin-ekl-fish oil [Fish Oil] 1 cap PO 1200 06/26/18 06/26/18 New Rx's Medication Instructions Recorded clopidogrel 75 mg PO QAM #30 tab 06/27/18 ipratropium-albuterol [Combivent 1 puff INHALATION QID PRN #1 06/27/18 Respimat] inhaler simvastatin 40 mg PO DAILY #30 tab 06/27/18
== END 2018-06-28 10:55 | disposition home or self-care (01) | DRG 65 ==
LOC: ED 08:00 → SUATTDRO 10:02 → 2E 10:02

== ENCOUNTER 2019-05-21 09:16 | Inpatient (IN) ==
--- NOTE | 2019-05-05 15:51 | PAT Medication Instructions ---
Medication Instructions Date of Service May 05, 2019 Home Medications Medication Instructions Recorded pantoprazole 40 mg tablet,delayed 40 mg PO QAM #90 tab 02/07/19 release cane #1 ea 04/16/19 tramadol 50 mg tablet 50 mg PO Q8H PRN #30 tab 04/16/19 alfuzosin 10 mg PO PM aspirin 81 mg PO HS multivitamin 1 tab PO QAM omega 1-vww-ikf-fish oil [Fish Oil] 1 cap PO QDL Symbicort 2 puff INHALATION BID PRN arginine HCl (L-arginine) 1 cap PO QAM psyllium husk [Metamucil] 4 cap PO QDD pantoprazole 40 mg tablet,delayed release 40 mg PO QAM red yeast rice 600 mg capsule 600 mg PO BID tramadol 50 mg tablet 50 mg PO Q8H PRN amlodipine 5 mg PO QAM STOP taking 2 weeks before surgery (or as soon as possible if surgery is within 2 weeks) omega 3-jmb-lsa-fish oil [Fish Oil] 1 cap PO QDL arginine HCl (L-arginine) 1 cap PO QAM red yeast rice 600 mg capsule 600 mg PO BID DO NOT take the morning of surgery multivitamin 1 tab PO QAM Take morning of surgery With a small sip of water, OTHERWISE NOTHING TO EAT OR DRINK AFTER MIDNIGHT: Symbicort 2 puff INHALATION BID PRN (if needed) pantoprazole 40 mg tablet,delayed release 40 mg PO QAM tramadol 50 mg tablet 50 mg PO Q8H PRN (okay to take up to 4 hours prior to surgery if needed) amlodipine 5 mg PO QAM Take evening before surgery alfuzosin 10 mg PO PM aspirin 81 mg PO HS Symbicort 2 puff INHALATION BID PRN (if needed) psyllium husk [Metamucil] 4 cap PO QDD tramadol 50 mg tablet 50 mg PO Q8H PRN (if needed) Other Notes If you have any questions please call us at [phone] or [phone] or [phone] or [phone]
--- NOTE | 2019-05-06 12:18 | Anesthesiology Consultation ---
Date of Service May 06, 2019 Assessment & Plan (1) Encounter for pre-operative examination: - S/P EGD: 10/10/18: EGD: MAC sedation at [facility] - ASA instructions: patient okay to continue ASA perioperatively per surgeon. Chart Review Chart Review: Pending: Refer to Additional Notes / Consult section (pending preop testing (labs)) and Patient seen in Pre Admission Testing Teaching & Discussion Pre-Anesthesia Teaching/Discussion Notes: Instructed NPO after midnight before surgery,except medications with 15 cc of water. Medication instructions provided according to the PAT guidelines. History Surgery Operation Date: 05/21/19 13:50 Proposed Procedures p Right Total Hip Replacement - Anupam Javed MD Height/Weight Height: 5 ft 11 in Weight: 80.7 kg Allergies Allergy/AdvReac Type Severity Reaction Status Date / Time No Known Allergies Allergy Verified 05/05/19 14:18 Medications Home Medications Medication Instructions Recorded Confirmed Last Taken alfuzosin 10 mg PO PM 06/26/18 05/05/19 10/09/18 19:00 aspirin 81 mg PO HS 06/26/18 05/05/19 10/08/18 16:00 multivitamin 1 tab PO QAM 06/26/18 05/05/19 10/08/18 08:00 omega 0-qtq-olj-fish oil [Fish Oil] 1 cap PO QDL 06/26/18 05/05/19 10/08/18 08:00 Symbicort 2 puff INHALATION BID PRN 10/07/18 05/05/19 10/07/18 08:00 arginine HCl (L-arginine) 1 cap PO QAM 10/07/18 05/05/19 10/08/18 08:00 psyllium husk [Metamucil] 4 cap PO QDD 10/07/18 05/05/19 10/09/18 21:00 pantoprazole 40 mg tablet,delayed 40 mg PO QAM #90 tab 02/07/19 05/05/19 Unknown release red yeast rice 600 mg capsule 600 mg PO BID 03/26/19 05/05/19 Unknown cane #1 ea 04/16/19 05/05/19 Unknown tramadol 50 mg tablet 50 mg PO Q8H PRN #30 tab 04/16/19 05/05/19 Unknown amlodipine 5 mg PO QAM 05/05/19 05/05/19 Unknown Past Medical History Medical History (Updated 05/06/19 @ 12:43 by Makayla Mayes) Anemia Asthma inhaler prn BPH (benign prostatic hyperplasia) Carotid stenosis s/p left CEA (2014) Chronic right hip pain GERD (gastroesophageal reflux disease) controlled History of colon polyps HLD (hyperlipidemia) no meds Hypertension Osteoarthritis Peripheral arterial disease S/P stroke due to cerebrovascular disease 2014- s/p left CEA 06/2018- no deficits/neurology recommended plavix x 3 months-- since discontinued/patient on ASA 81mg Exercise / Class Metabolic Activity III < 4 Walking/Shop/Light housework (uses cane PRN) Past Family History Family History Other Family history non-contributory No family history of adverse response to anesthesia Past Surgical History Surgical History H/O carotid endarterectomy left (2014) History of colonoscopy History of esophagogastroduodenoscopy (EGD) History of open reduction and internal fixation (ORIF) procedure left elbow History of oral surgery on gums History of root canal procedure History of thumb surgery left History of tooth extraction Hx of rectal polypectomy Hx of vasectomy Past Anesthesia History No Hx of Anesthesia Complications and No Family Hx of Anesthesia Complications History of PONV No Hx of PONV and No Hx of Motion Sickness Social History Smoking Status: Former smoker tobacco type: cigarettes Do You Dip or Chew Tobacco: No Smoking End Date: Quit 1971 Hx Alcohol Use: Yes Alcohol type: beer alcohol intake frequency: 0-2 drinks per day (1 drink/day) Hx Substance Use: No substance use type: does not use Review of Systems Reflux controlled. Patient denies chest pain, shortness of breath, cough, wheezing, palpitations. Physical Exam Vital Signs VITALS BP 146/82 P 81 TEMP 98.0 SP02 94% RESP 16 PHYSICAL Full neck and c-spine range of motion. Full TMJ range of motion. TMD 2.5 finger breaths Mallampati Score 3 Dentition: missing molars Lungs: clear throughout to auscultation Cardiac: regular rate and rhythm, no murmurs noted Spine: normal Carotid arteries: negative bruit Extremities: no edema Testing Electrocardiogram Date: 06/26/18 NSR at 84bpm. LAD. iRBBB. Chest X-Ray Date: 06/26/18 Findings: + NAD Echocardiogram Date: 06/26/18 EF 55-60%. No RWMA. Grade I DD. No significant valvular disease. Stress Test Date: 09/16/18 Type: exercise Negative exercise stress ECG for ischemia at 112 % MPHR. No arrhythmia. No chest pain reported. 11.8 METS. Other Testing Neck CTA: 06/26/18: Unremarkable CTA without aneurysm, dissection, high-grade stenosis or proximal branch occlusion. Encephalomalacia from remote infarct about the left occipital lobe.
[2019-05-06 14:18] LABS: Basophils # (auto) 0.03 K/uL (0-0.2); Basophils % (auto) 0.4 %; Eosinophils # (auto) 0.05 K/uL (0-0.5); Eosinophils % (auto) 0.7 %; Hematocrit (blood only) 40.3 % (42-52); Hemoglobin 13.7 g/dL (14.0-18.0); Immature Granulocytes # (auto) 0.02 K/uL (0.00-0.02); Immature Granulocytes % (auto) 0.3 %; Lymphocytes # (auto) 1.57 K/uL (1.2-3.4); Lymphocytes % (auto) 22.8 %; Mean Corpuscular Hemoglobin 30.2 pg (25-34); Mean Corpuscular Volume 88.8 fL (80-100); Mean Platelet Volume 9.7 fL (7.4-10.4); Monocytes # (auto) 0.59 K/uL (0.11-0.59); Monocytes % (auto) 8.6 %; Neutrophils # (auto) 4.64 K/uL (1.4-6.5); Neutrophils % (auto) 67.2 %; Platelet Count 268 K/uL (130-400); RDW Standard Deviation 42.2 fL (36.4-46.3); Red Blood Count 4.54 M/uL (4.7-6.1)
[2019-05-06 14:26] LABS: BUN Creatinine Ratio 12.8 (10-20); Blood Urea Nitrogen 15 mg/dl (7-18); C Reactive Protein < 0.29 mg/dl (0-0.29); Calcium 9.8 mg/dl (8.5-10.1); Carbon Dioxide 26 mmol/L (21-32); Chloride 106 mmol/L (98-107); Creatinine Clr Calc Pharmacy 57.6 ml/min; Est GFR (African American) 69.5; Glucose 112 mg/dl (70-99); Potassium 4.6 mmol/L (3.5-5.1); Sodium 139 mmol/L (136-145)
[2019-05-06 14:28] LABS: Partial Thromboplastin Ratio 0.9; Partial Thromboplastin Time 24.8 Seconds (21.0-31.0); Prothrombin Time 9.9 Seconds (9.0-12.0)
--- NOTE | 2019-05-16 08:21 | History and Physical Report ---
DATE OF ADMISSION: 05/21/2019 CHIEF COMPLAINT: Right hip pain and discomfort. HISTORY OF PRESENT ILLNESS: A 73-year-old gentleman who presents for treatment of his right hip. This all started back in January when he did something and felt like he strained his groin. It has just persisted since then and gradually gotten worse. He was out kayaking and he got up and his pain got significantly worse and he was having difficulty walking. He describes it just deteriorated since then. [facility] and they tried some therapy without any relief. He has been to a chiropractor as well which has not helped. He has resorted to using a cane to get around. He had an x-ray and MRI which showed avascular necrosis. The patient now desires surgical treatment of his hip. Denies any significant back pain. His pain is mostly in his groin and thigh. Increased with any weightbearing. PAST MEDICAL HISTORY: Past medical history significant for 1. Several TIAs with history of left carotid endarterectomy without sequelae. 2. Hypertension. 3. Low back pain/sciatica. 4. BPH. PAST SURGICAL HISTORY: Include: 1. Left elbow surgery. 2. Left carotid endarterectomy. ALLERGIES: None. CURRENT MEDICATIONS: Include: 1. Atorvastatin. 2. Baby aspirin. 3. L-Arginine. 4. Fish oil. SOCIAL HISTORY: A 73-year-old male. He is . His medical doctor is Dr. Alejandro. Occasional alcohol intake. Does not smoke. FAMILY HISTORY: Noncontributory. REVIEW OF SYSTEMS: Significant for some TIAs. No residual sequelae. Denies any chest pain or shortness of breath. He did have a stress test which was normal back in August. PHYSICAL EXAMINATION: GENERAL: Shows a pleasant, healthy appearing, middle-aged male, looks to be in good health. HEENT: Benign. NECK: Supple, no lymphadenopathy. LUNGS: Clear to auscultation. HEART: Regular rate and rhythm. ABDOMEN: Soft, nontender, nondistended. EXTREMITIES: Grossly neurovascularly intact except as follows: Examination of the right hip and leg reveals the patient walks with a markedly antalgic gait. He is using crutches at this moment. His leg lengths appear pretty equal. He has pain with any type of hip motion. He can internally rotate to about 10 degrees, which causes pain. Negative straight leg raise. He is neurologically intact. No knee effusion. X-RAYS: X-rays of the right hip show evidence of avascular necrosis with a little early collapse of the femoral head in the weightbearing portion. He has got some slight cystic changes in the femoral head as well. MRI: MRI from the hospital was also reviewed. It shows a segment of avascular necrosis at the superior dome and weightbearing portion of the femoral head. Small hip joint effusion. He has got some surrounding bone marrow edema. ASSESSMENT: A 73-year-old male with a 5-month history of right hip pain and discomfort that has gradually gotten worse with x-ray and imaging studies consistent with avascular necrosis with collapse. He has failed conservative treatment. It is limiting his lifestyle and he would like to have his hip fixed. PLAN: We are going to take him to the operating room and do right total hip replacement. The risks and benefits of this procedure were explained to the patient including but not limited to DVT, PE, , infection, neurological injury, vascular injury, bleeding problem, pain, limited range of motion, stiffness, failure to relieve symptoms, incomplete relief of symptoms, persistent pain, etc. The patient understands and desires to proceed. Informed consent was obtained. As far as discharge plans, he is planning to be discharged home using [facility] home health program and his 's assistance. We will plan DVT prophylaxis including thigh-high TEDs, SCDs, and baby aspirin twice a day.
[~2019-05-21 09:16] MED LIST changes: +ACETAMINOPHEN 500 MG TAB PO SCH; -AMLO5TAB3 PO; -ASPI81TA28 PO; -ATOR-26 PO; +BUPIVACAINE 0.5 % 5 MG/1 ML PF 10ML VIAL ONE; -CLOP1TAB15 PO; +FAMOTIDINE 20 MG TAB PO SCH; +GABAPENTIN 300 MG CAP PO SCH; +LR 15ML/HR IV SCH; +LR 60ML/HR IV SCH; +METOCLOPRAMIDE HCL 10 MG TABLET PO SCH; -MULT-506 PO; -OMEG10007 PO; +SCOPOLAMINE 1.5 MG TDSY TD SCH; +TRANEXAMIC ACID 1,000 MG **IV Pre-op IV SCH
[2019-05-21] MEDS ORDERED: PROPOFOL IV EMULSION 10 MG/ML 20 ML VIAL IV ONE (09:48)
[2019-05-21] MEDS ORDERED: MoRPHine SULFATE PF 1 MG/ML 10 ML AMP/VIAL ONE (09:48)
[2019-05-21] MEDS ORDERED: MIDAZOLAM HCL 1 MG/ML 2ML VIAL ONE ×3 (09:48→11:52)
[2019-05-21] MEDS ORDERED: LIDOCAINE HCL 2% 2 ML VIAL/AMP(20MG/ML) INFIL ONE (09:48)
[2019-05-21] MEDS ORDERED: KETOROLAC 30 MG/ML VIAL IV PRN (11:00)
[2019-05-21] MEDS ORDERED: MoRPHine SULFATE PF 1 MG/ML 10 ML AMP/VIAL INT SPINAL ONE (11:00)
[2019-05-21] MEDS ORDERED: NALOXONE HCL 0.4 MG/1 ML VIAL/CARP IV PRN ×2 (11:00→14:18)
[2019-05-21] MEDS ORDERED: SODIUM CHLORIDE 0.9% 1000ML 1,000 ML IV SCH (11:00)
[2019-05-21] MEDS ORDERED: LACTATED RINGER'S 500 ML IV PRN (11:00)
[2019-05-21] MEDS ORDERED: NALBUPHINE HCL INJ 10 MG/ML AMP IV PRN (11:00)
[2019-05-21] MEDS ORDERED: MEPERIDINE HCL 25 MG/ML CARP IV PRN (11:00)
[2019-05-21] MEDS ORDERED: NALOXONE HCL 1 MG in SODIUM CHLORIDE 0.9% 1000ML 1,000 ML IV PRN (11:00)
[2019-05-21] MEDS ORDERED: ONDANSETRON INJ 2 MG/ML 2 ML VIAL IV PRN ×2 (11:00→14:18)
[2019-05-21] MEDS ORDERED: NO NARCOTICS OR SEDATIVES SCH (11:00)
[2019-05-21] MEDS ORDERED: PROMETHAZINE HCL 12.5 MG in SODIUM CHLORIDE 0.9% 50 ML IV PRN (11:00)
[2019-05-21] MEDS ORDERED: ePHEDrine sulfate 50 MG/ML AMP IV PRN (11:00)
[2019-05-21] MEDS ORDERED: DiphenhydrAMINE HCL 50 MG/ML VIAL IV PRN (11:00)
[2019-05-21] MEDS ORDERED: NALOXONE HCL 0.08 MG in SYRINGE 1.8 ML IV PRN (11:00)
[2019-05-21] MEDS ORDERED: DC INTRASPINAL MORPHINE SCH (11:00)
[2019-05-21] MEDS ORDERED: EPINEPHrine INJ 1 MG/ML AMP ONE (11:07)
[2019-05-21] MEDS ORDERED: BUPIVACAINE 0.5 % 5 MG/1 ML MPF 30ML VIAL ONE (11:07)
[2019-05-21] MEDS ORDERED: BACITRACIN INJ 50,000 UNIT VIAL ONE (11:07)
--- NOTE | 2019-05-21 11:18 | History & Physical Bridge Note ---
Date of Service May 21, 2019 History & Physical Bridge Note I have examined the patient, reviewed the History & Physical and in the interval since the performance of the History & Physical I have noted the following changes of clinical significance: no changes noted
[2019-05-21] MEDS: CEFAZOLIN 2000MG 2,000 MG/15 ML SYR IV SCH ×3 (11:27→17:12)
[2019-05-21] MEDS ORDERED: ePHEDrine sulfate 50 MG/ML SYR ONE (12:14)
[2019-05-21] MEDS ORDERED: PHENYLEPHRINE HCL 10 MG/ML VIAL ONE (12:14)
--- NOTE | 2019-05-21 12:48 | Post Operative Brief Note ---
PG Immediate Post Op with CF Date of Surgery May 21, 2019 Pre & Post Diagnosis Operation Date: 05/21/19 12:00 Pre-Op Diagnosis: Right Hip Avascular Necrosis Post-Op Diagnosis: Right Hip Avascular Necrosis I identified the patient and participated in the time-out.: Yes Procedure Operation Date: 05/21/19 12:00 Actual Procedures p Right Total Hip Replacement(Right) - Anupam Javed MD Surgeon Anupam Javed MD Certified Legal Investigator Adele, PAC Estimated Blood Loss 300 Findings Consistent with Post-Op Diagnosis Fluids 1700 cc Specimens Specimen Description: Permanent Specimen: A) Right Femoral Head Drains Medina Catheter Anesthesia Type Spinal MAC Complications none Disposition Accompanied Patient To Recovery: Yes Disposition: Recovery Room
--- NOTE | 2019-05-21 13:31 | XRay Report ---
XR hip 1V RT w pelvis CLINICAL HISTORY: Hip arthroplasty COMPARISON: 04/16/2019 DISCUSSION: There are postsurgical changes of a total right hip arthroplasty. The acetabular and femo ral components appear well seated. Overlying skin abbey are evident. There is no dislocation. There is air present within the soft tissues consistent with recent surgery. IMPRESSION: Postsurgical changes of a total right hip arthroplasty. No complicating features identifi ed Electronically signed by: Bharat Yadav M.D. 05/21/2019 1:30 PM
--- NOTE | 2019-05-21 13:38 | Anesthesiology Progress Note ---
Date of Service May 21, 2019 Anesthesia Post Procedure Vital Signs Vital Signs: Temp Pulse Pulse Resp BP Pulse Ox 05/21/19 13:35 36.6 C 82 20 129/62 100 05/21/19 13:25 36.5 C 79 13 135/55 L 98 05/21/19 13:15 36.5 C 84 25 H 121/67 99 05/21/19 13:05 36.5 C 80 21 131/52 L 96 05/21/19 12:58 36.5 C 90 16 107/58 L 100 05/21/19 09:51 36.6 C 98 H 20 179/92 H 98 Pain Intensity Right Hip: Pain Intensity: 0 Transfer of Care Handoff Completed per policy Notes Mental Status: alert / awake / arousable Patient Amnestic to Procedure: Yes Nausea / Vomiting: adequately controlled Pain: adequately controlled Airway Patency, RR, SpO2: stable & adequate BP & HR: stable & adequate Hydration State: stable & adequate Neuraxial Anesthesia: was administered and sensory block is resolving Anesthetic Complications: no major complications apparent
[2019-05-21] MEDS ORDERED: METOCLOPRAMIDE HCL INJ 5 MG/ML 2 ML VIAL IV PRN (14:18)
[2019-05-21] MEDS ORDERED: MAGNESIUM HYDROXIDE SUSP 30 ML UDC PO PRN (14:18)
[2019-05-21] MEDS ORDERED: [UNRECOGNIZED DRUG - OTHER] SCH (14:18)
[2019-05-21] MEDS ORDERED: ALUMINUM/MAGNESIUM SUSP 30 ML UDC PO PRN (14:18)
[2019-05-21] MEDS ORDERED: BISACODYL 10 MG SUPP PR PRN (14:18)
[2019-05-21] MEDS ORDERED: APPL SCH (14:18)
[2019-05-21] MEDS: SODIUM CHLORIDE 0.9% 1000ML 1,000 ML IV SCH (14:41)
[2019-05-21] MEDS: ACETAMINOPHEN 500 MG TAB PO SCH ×2 (14:56→21:14)
[2019-05-21] MEDS: CHECK SCOPOLAMINE PATCH PLACEMENT SCH (16:29)
[2019-05-21] MEDS ORDERED: PSYLLIUM 58.6% POWDER PACKET PO SCH (16:30)
[2019-05-21] MEDS: ASCORBIC ACID 500 MG TAB PO SCH (16:35)
[2019-05-21] MEDS: FERROUS GLUCONATE 324 MG TAB PO SCH (16:35)
--- NOTE | 2019-05-21 18:02 | Operative Report ---
Post Operative Report Pre & Post Diagnosis Operation Date: 05/21/19 12:00 Pre-Op Diagnosis: Right Hip Avascular Necrosis Post-Op Diagnosis: Right Hip Avascular Necrosis I identified the patient and participated in the time-out.: Yes Procedure Operation Date: 05/21/19 12:00 Actual Procedures p Right Total Hip Replacement(Right) - Anupam Javed MD Surgeon Anupam Javed MD Property Caretaker Adele, PAC Estimated Blood Loss 300 Findings Consistent with Post-Op Diagnosis Specimens Right femoral head sent for pathology. Anesthesia Type Spinal MAC Complications none Disposition Accompanied Patient To Recovery: Yes Disposition: Recovery Room Indications Patient is a 73-year-old gentleman whose had a 6-month history of increasing right hip pain discomfort. It got severe enough that he said to use a cane or walker to get around. He had x-rays which showed flattening of his femoral head and MRI which showed avascular necrosis. Patient did failed conservative treatment elected proceed with surgical treatment. Description of Procedure Operative implants consisted of: 1. Biomet size 58 mm G7 acetabular shell. 2. 6.5 cancellus acetabular screws 135 mm length and 125 mm length. 3. [place] hole eliminator. 4. 58 mm outer diameter/26 mm inner diameter highly cross-link polyethylene liner. 5. Depuy Corail size 11 KLA femoral stem. 6. +5/36 mm ceramic articular ball. Patient was taken to the operating room identified and placed on the operating table supine position. Contact there is probably padded. IV en bloc scrubbed by anesthesia team. A spinal anesthetic had been implemented holding area. Medina catheter was placed in sterile fashion with patient then placed in the left lateral decubitus position. Axillary roll was placed. The Stulberg hip positioner was used for positioning. The right hip and leg were then prepped and draped in usual sterile fashion. A posterior lateral approach to the hip was then performed to a curvilinear incision centered over the greater trochanter but Sharp passes cut through subcutaneous tissue down below the IT band gluteal fascia the IT band gluteal fascia then incised longitudinally in line with skin incision. The underlying greater bursa was excised. The piriformis and external rotators were tagged and taken off the posterior aspect of the hip joint capsule. Great care was taken throughout the procedure to protect the sciatic nerve at all times. Posterior capsulotomy was then performed leaving a large flap for later repair. Hip was internally rotated and dislocated. Femoral neck osteotomy cut was made with Final Cut 12 mm above the lesser trochanter. Femoral head was removed and sent for pathology P the femur was retracted anteriorly. Attention drawn the acetabulum. The acetabular labrum was excised to the pulmonary fat was excised. Sequential reaming the acetabulum then performed begin the size 49 progressing up to 57. A 58 mm Biomet G7 acetabular shell was then placed in about 40 degrees lateral opening and 20 degrees of anteversion but was fixed with two 6.5 cancellus acetabular screws. Trial liner was placed. Attention drawn the femur. The proximal femur was entered with a Cuil cutter followed by canal finder. Then broached begin with size 8 and progressing up to 11. We got good fit at 11. Calcar reamer was used to smooth off the calcar. I then trialed the hip in the +5 articular ball provide full stability in full extension and external rotation and flexion to 90 degrees internal rotation over [address] these implants. All trial implants were removed. An apex hole eliminator was placed but highly cross-link polyethylene liner was placed. A [place] Corail size 11 KLA femoral stem was then impacted in position. +5/36 mm ceramic articular ball was placed. Hip was located once again found to be stable. Attention drawn to closing. The wound was irrigated with copious amounts of pulsatile lavage solution. I did inject locally with 60 cc of 5% Marcaine with epinephrine. The posterior capsule and external rotators were then repaired through drill holes in the posterior trochanter with #2 Tycron suture. The IT band gluteal fascia was then closed with #1 PDS suture running fashion this obtains tissue then closed 2 layers the deep layer #1 Vicryl suture this obtains tissues with 2 Dexon suture in a buried interrupted fashion the skin was closed skin abbey. Leg was then cleaned dried and sterile dressing composed of Xeroform, 4 x 4's, sterile ABD pad, foam tape was applied. Patient then transferred to the recovery room in stable condition. Patient tolerated procedure well no comp case but only sponge counts are correct at the end the operation. I attest to the content of the Intraoperative Record and any orders documented therein. Any exceptions are noted below.
--- NOTE | 2019-05-21 18:05 | Progress Note ---
DATE: 05/21/2019 SUBJECTIVE: A 73-year-old gentleman postop from a right total hip replacement. He is doing well. Not having any pain yet. No chest pain or shortness of breath. Not feeling dizzy or lightheaded. OBJECTIVE: VITAL SIGNS: Temperature 36.4. Vital signs stable. GENERAL: Shows a pleasant, elderly male. He is sitting up in his bedside chair, looks quite comfortable. LUNGS: Clear to auscultation. HEART: Has regular rate and rhythm. ABDOMEN: Soft, nontender, nondistended. EXTREMITIES: Grossly neurovascularly intact except as follows: Examination of the right leg reveals the dressing is clean, dry and intact. Leg lengths are equal. Thigh is soft and supple. Hip is located. He is neurologically intact. He can dorsiflex and plantarflex his foot appropriately. X-RAYS: X-rays of the right hip from recovery room are reviewed. It shows right uncemented total hip arthroplasty. Components looked to be in good position. No signs of problems. ASSESSMENT: A 73-year-old gentleman postoperative from a right hip replacement, doing well. His pain is controlled. Hip is located. He is neurologically intact. PLAN: 1. DVT prophylaxis including thigh-high TEDs, SCDs, and aspirin twice a day. 2. PT/OT. Weight bear as tolerated. Right total hip protocol. 3. Pain control, doing well with current pain regimen. 4. IV antibiotics x24 hours. 5. Disposition: Plan to discharge to home likely with some home health once medically stable and adequately recovered.
[2019-05-21] MEDS: ASPIRIN 81 MG ECTAB PO SCH (20:06)
[2019-05-21] MEDS: DOCUSATE SODIUM 100 MG CAP PO SCH (20:12)
[2019-05-21] MEDS ORDERED: BUDESONIDE/FORMOTEROL FUMARATE 80/4.5 60 PUFFS/INHALER INH PRN (21:00)
[2019-05-21] MEDS ORDERED: ALFUZOSIN HCL 10 MG TAB PO SCH (21:00)
[2019-05-21] MEDS ORDERED: SENNA 8.6 MG TAB PO SCH (21:00)
[2019-05-21] MEDS ORDERED: NON-FORMULARY MEDICATION (Red Yeast Rice 600 MG) PO SCH (21:00)
[2019-05-22] MEDS: SODIUM CHLORIDE 0.9% 1000ML 1,000 ML IV SCH (00:02)
[2019-05-22] MEDS: CHECK SCOPOLAMINE PATCH PLACEMENT SCH (00:03)
[2019-05-22] MEDS: CEFAZOLIN 2000MG 2,000 MG/15 ML SYR IV SCH (02:03)
[2019-05-22 04:25] VITALS: TEMP 97.7
[2019-05-22] MEDS ORDERED: HYDROmorphone INJ 0.5 MG/0.5 ML SYR IV PRN (05:02)
[2019-05-22] MEDS ORDERED: TRAMADOL HCL 50 MG TABLET PO PRN (05:02)
[2019-05-22] MEDS: KETOROLAC TROMETHAMINE 15 MG/ML VIAL IV SCH ×2 (05:47→10:38)
[2019-05-22] MEDS: ACETAMINOPHEN 500 MG TAB PO SCH (05:47)
[2019-05-22 06:17] LABS: Basophils # (auto) 0.01 K/uL (0-0.2); Basophils % (auto) 0.1 %; Eosinophils # (auto) 0.09 K/uL (0-0.5); Eosinophils % (auto) 1.2 %; Hematocrit (blood only) 30.4 % (42-52); Hemoglobin 10.2 g/dL (14.0-18.0); Immature Granulocytes # (auto) 0.01 K/uL (0.00-0.02); Immature Granulocytes % (auto) 0.1 %; Lymphocytes # (auto) 1.22 K/uL (1.2-3.4); Lymphocytes % (auto) 16.9 %; Mean Corpuscular Hgb Conc 33.6 g/dL (32-36); Mean Corpuscular Volume 89.4 fL (80-100); Mean Platelet Volume 9.8 fL (7.4-10.4); Monocytes # (auto) 0.62 K/uL (0.11-0.59); Monocytes % (auto) 8.6 %; Neutrophils # (auto) 5.29 K/uL (1.4-6.5); Neutrophils % (auto) 73.1 %; Platelet Count 181 K/uL (130-400); RDW Coefficient of Variation 13.4 % (11.5-14.5); RDW Standard Deviation 43.8 fL (36.4-46.3); White Blood Count 7.24 K/uL (4.8-10.8)
[2019-05-22 06:47] LABS: BUN Creatinine Ratio 12.9 (10-20); Calcium 8.5 mg/dl (8.5-10.1); Creatinine Clr Calc Pharmacy 57.6 ml/min; Est GFR (African American) 69.5; Potassium 4.1 mmol/L (3.5-5.1)
[2019-05-22 07:33] VITALS: BP 147/62; PULSE 97
[2019-05-22] MEDS: ASPIRIN 81 MG ECTAB PO SCH (08:05)
[2019-05-22] MEDS: DOCUSATE SODIUM 100 MG CAP PO SCH (08:05)
[2019-05-22] MEDS: ASCORBIC ACID 500 MG TAB PO SCH (08:05)
[2019-05-22] MEDS: FERROUS GLUCONATE 324 MG TAB PO SCH (08:05)
--- NOTE | 2019-05-22 08:30 | Progress Note ---
DATE: 05/22/2019 SUBJECTIVE: A 73-year-old gentleman postop day 1 from right hip replacement. He is doing pretty well. Pain is controlled. Denies any chest pain or shortness of breath. Not feeling dizzy or lightheaded. OBJECTIVE: VITAL SIGNS: Temperature 36.5. Vital signs stable. GENERAL: Shows a pleasant, middle-aged male. He is sitting up in bed and looks quite comfortable. EXTREMITIES: Examination of the right leg reveals the dressing to be clean. Right hip reveals leg lengths to be equal. Dressing is clean, dry and intact. Thigh is soft and supple. His hip is located. He is neurologically intact. LABORATORY DATA: Hemoglobin 10.2. Hematocrit 30.4. Electrolytes are stable. ASSESSMENT: A 73-year-old gentleman postop day 1 from right hip replacement, doing well. Pain is controlled. Hip is located. He is neurologically intact. He is slightly anemic, but without symptoms. PLAN: 1. DVT prophylaxis including thigh-high TEDs, SCDs, and aspirin twice a day. 2. PT/OT. Weight bear as tolerated. Right total hip protocol. 3. Pain control, doing well with current pain regimen. 4. Disposition: Plan to discharge to home with home health once adequately recovered and medically stable. We will see how he does in therapy today.
[2019-05-22] MEDS ORDERED: PANTOprazole 40 MG TAB PO SCH (09:00)
[2019-05-22] MEDS ORDERED: MULTIVITAMIN TAB PO SCH ×2 (09:00)
[2019-05-22] MEDS ORDERED: AMLODIPINE BESYLATE 5 MG TAB PO SCH (09:00)
[2019-05-22] MEDS ORDERED: ARGININE HCL PO SCH (09:00)
[2019-05-22] MEDS ORDERED: TAMSULOSIN HCL 0.4 MG CAP PO PRN (09:00)
[2019-05-22 10:11] VITALS: O2SAT 95
[2019-05-22] MEDS ORDERED: OMEGA-3 (PURIFIED FISH OIL) 1 GM CAP PO SCH (11:30)
--- NOTE | 2019-05-28 11:05 | Discharge Summary ---
DATE OF ADMISSION: 05/21/2019 DATE OF DISCHARGE: 05/22/2019 ADMITTING PHYSICIAN AND SURGEON: Anupam Javed. ADMITTING DIAGNOSIS: Right hip avascular necrosis. SECONDARY DIAGNOSES: History of several transient ischemic attacks and carotid endarterectomy, hypertension, low back pain, sciatica, and benign prostatic hypertrophy. CONSULTS: None obtained. HISTORY AND PHYSICAL EXAMINATION: Well documented in the patient's chart. HOSPITAL COURSE: The patient was admitted on 05/21/2019, underwent total hip arthroplasty, tolerated the procedure well. There were no complications. He was transferred to the PACU postop and later to the orthopedic floor for further care. He was given Ancef for antibiotic prophylaxis, ZHENG stockings, SCDs and aspirin for DVT prophylaxis. Hemoglobin, hematocrit and vital signs were monitored during his hospital stay and remained stable, did not require any blood transfusions. There were no complications. On postoperative day 1, he was tolerating a regular diet, pain was controlled with oral pain medicine. He was participating in physical therapy. On postop day 1, he was discharged home, set up with home health services. He was given printed discharge instructions as well as new prescriptions for extra strength Tylenol, aspirin and tramadol. Continue his home medications, continue physical therapy, weightbearing as tolerated, ZHENG stockings, total hip precautions. Follow up approximately 2 weeks postop or sooner if there are any problems or concerns.
== END 2019-05-22 11:37 | disposition home health service (06) | DRG 470 ==
LOC: ASU 09:16 → 3E 12:50

== ENCOUNTER 2019-06-14 10:13 | Inpatient (IN) ==
[2019-06-14] MEDS ORDERED: MAGNESIUM SULFATE / D5W 1 GM/100 ML BAG IV ONE ×2 (10:33→10:47)
[2019-06-14] MEDS ORDERED: SODIUM CHLORIDE 0.9% 1000ML 1,000 ML IV ONE ×2 (10:33→10:47)
[2019-06-14] MEDS ORDERED: OPTIRAY 320 125ml IV PRN (10:42)
[2019-06-14 10:43] LABS: Basophils # (auto) 0.02 K/uL (0-0.2); Basophils % (auto) 0.4 %; Eosinophils # (auto) 0.08 K/uL (0-0.5); Eosinophils % (auto) 1.6 %; Hematocrit (blood only) 34.8 % (42-52); Hemoglobin 11.3 g/dL (14.0-18.0); Immature Granulocytes # (auto) 0.02 K/uL (0.00-0.02); Immature Granulocytes % (auto) 0.4 %; Lymphocytes # (auto) 1.64 K/uL (1.2-3.4); Lymphocytes % (auto) 32.9 %; Mean Corpuscular Hemoglobin 29.4 pg (25-34); Mean Corpuscular Hgb Conc 32.5 g/dL (32-36); Mean Corpuscular Volume 90.6 fL (80-100); Mean Platelet Volume 9.5 fL (7.4-10.4); Monocytes # (auto) 0.47 K/uL (0.11-0.59); Monocytes % (auto) 9.4 %; Neutrophils # (auto) 2.75 K/uL (1.4-6.5); Neutrophils % (auto) 55.3 %; Platelet Count 326 K/uL (130-400); RDW Coefficient of Variation 13.4 % (11.5-14.5); RDW Standard Deviation 44.2 fL (36.4-46.3); Red Blood Count 3.84 M/uL (4.7-6.1); White Blood Count 4.98 K/uL (4.8-10.8)
[2019-06-14] MEDS ORDERED: TPA for Stroke IV STA (10:48)
[2019-06-14 10:49] LABS: iSTAT Creatinine 1.2 mg/dl (0.6-1.3); iSTAT Hemoglobin 12.2 g/dl (14.0-18.0); iSTAT Ionized Calcium 1.16 mmol/l (1.12-1.32); iSTAT Potassium 3.9 mEq/L (3.3-5.0)
[2019-06-14 10:55] LABS: Partial Thromboplastin Ratio 0.9; Partial Thromboplastin Time 23.9 Seconds (21.0-31.0); Prothrombin Time 10.3 Seconds (9.0-12.0)
[2019-06-14] MEDS ORDERED: Alteplase Bolus 7.2 MG in SYRINGE 0 ML IV ONE (10:58)
[2019-06-14 10:59] LABS: Alanine Aminotransferase 16 U/L (12-78); Albumin Level 3.7 gm/dl (3.4-5.0); Aspartate Aminotransferase 9 U/L (15-37); BUN Creatinine Ratio 13.3 (10-20); Blood Urea Nitrogen 19 mg/dl (7-18); Carbon Dioxide 27 mmol/L (21-32); Chloride 104 mmol/L (98-107); Creatinine Clr Calc Pharmacy 48.9 ml/min; Est GFR (African American) 57.1; Est GFR (Non-African American) 49.2; Glucose 196 mg/dl (70-99); Magnesium 1.9 mg/dl (1.8-2.4); Potassium 3.8 mmol/L (3.5-5.1); Sodium 136 mmol/L (136-145)
[2019-06-14] MEDS ORDERED: PRIMARY PLUMSET, PE LINED TUBING, 113 IN, NON-DEHP (2260-0500) IV ONE (10:59)
[2019-06-14] MEDS ORDERED: ALTEPLASE, RECOMBINANT 64 MG in EMPTY BAG 0 ML IV ONE (10:59)
--- NOTE | 2019-06-14 11:02 | CT Scan Report ---
CT head/brain wo con CLINICAL HISTORY: 73 years-old Male presenting with Stroke evaluation. TECHNIQUE: Multidetector CT imaging of the head was performed without the use of intravenous contrast . IV contrast: None. One or more dose lowering techniques were used consistent with the principles of ALARA (as low as reasonably achievable), including automatic exposure control, mA or kV adjustment t o individual patient size, and/or use of iterative reconstruction. COMPARISON: 06/26/2018. CT DOSE (mGy.cm): The estimated cumulative dose is 1160.73. FINDINGS: Director Of Curriculum topogram: Unremarkable. Ventricles and sulci normal in size. No hemorrhage. Old left occipital lobe infarct. No acute territo rial infarct. No mass effect or midline shift. No extra-axial fluid collection. Paranasal sinuses and mastoid air cells clear. Calvarium intact. IMPRESSION: 1. No significant change compared to the prior study. No acute intracranial abnormality. 2. Old left occipital lobe infarct. ACT 112: Negative or not required by law. Electronically signed by: Rafi Marie M.D. 06/14/2019 11:00 AM
[2019-06-14 11:04] LABS: Alkaline Phosphatase 115 U/L (45-117); Bilirubin,Total 0.4 mg/dl (0.2-1); Globulin 3.8 gm/dl (2.5-4.0); Total Protein 7.5 gm/dl (6.4-8.2); Troponin I < 0.015 ng/ml (0-0.045)
--- NOTE | 2019-06-14 11:08 | CT Scan Report ---
CT angio head w con CLINICAL HISTORY: 73 years-old Male presenting with Pt left sided numbness. TECHNIQUE: Multidetector CT angiography of the head was performed after the administration of intrave nous contrast. 3-D volumetric and/or maximum intensity projection (MIP) images were subsequently smooth nstructed for review. IV contrast: None. One or more dose lowering techniques were used consistent wi th the principles of ALARA (as low as reasonably achievable), including automatic exposure control, m A or kV adjustment to individual patient size, and/or use of iterative reconstruction. COMPARISON: 06/26/2018. CT DOSE (mGy.cm): The estimated cumulative dose is 1160.73 mGy.cm. FINDINGS: Avian Keeper topogram: Unremarkable. Anterior circulation: Intracranial portions of the internal carotid arteries patent to the level of t he termini. Anterior cerebral arteries patent. Middle cerebral arteries patent. Anterior communicatin g artery patent. Posterior circulation: Right dominant vertebral artery. Intradural portions of the vertebral arteries patent. Posterior inferior cerebellar arteries patent. Basilar artery patent. Anterior inferior cere bellar arteries poorly visualized. Superior cerebellar arteries patent. Posterior cerebral arteries p atent. Prominent infundibulum at the origin of the left posterior communicating artery as on prior ex am. Hypoplastic or aplastic right posterior communicating artery. Dural venous sinuses: Patent. Other: Old left occipital lobe infarct noted. Calvarium intact. IMPRESSION: 1. No evidence of aneurysm, focal vessel occlusion, or significant stenosis of the intracranial louie panda. ACT 112: Negative or not required by law. Electronically signed by: Rafi Marie M.D. 06/14/2019 11:07 AM
--- NOTE | 2019-06-14 11:15 | CT Scan Report ---
CT angio neck with con CLINICAL HISTORY: 73 years-old Male presenting with Pt left sided numbness. TECHNIQUE: Multidetector CT angiography of the neck was performed after the administration of intrave nous contrast. 3-D volumetric and/or maximum intensity projection (MIP) images were subsequently smooth nstructed for review. IV contrast: 119 mL of Optiray 320. One or more dose lowering techniques were u sed consistent with the principles of ALARA (as low as reasonably achievable), including automatic ex posure control, mA or kV adjustment to individual patient size, and/or use of iterative reconstructio n. Stenosis measurements were based on NASCET-like criteria (distal lumen diameter as the denominator for stenosis measurement). COMPARISON: 06/26/2018. CT DOSE (mGy.cm): The estimated cumulative dose is 1160.73. FINDINGS: Faro Dealer topogram: Unremarkable. Aortic arch: Atherosclerosis of the three-vessel aortic arch with patent origins of the branch vessel s. Innominate artery: Patent. Right subclavian artery: Patent. Right common carotid artery: Patent. Right internal and external carotid arteries: Noncalcified atherosclerotic plaque at the carotid bifu rcation with 50% stenosis of the origin of the internal carotid artery. The remainder of the course o f the ICA is patent. External carotid artery patent. Left common carotid artery: Patent. Left internal and external carotid arteries: Left carotid bifurcation patent. Left internal and exter nal carotid arteries widely patent. Left subclavian artery: Patent. Vertebral arteries: Right dominant vertebral artery. Less than 50% stenosis of the origin and proxima l 1 to 2 cm of the right vertebral artery. Left vertebral artery widely patent at its origin and gricel g its course. Other: Limited intracranial evaluation within normal limits. Soft tissues of the neck normal allowing for the phase of contrast. Degenerative changes of the cervical spine. Lung apices clear. IMPRESSION: 1. Noncalcified atherosclerosis with 50% stenosis of the origin of the right ICA and less than 50% s tenosis of the origin and proximal 1 to 2 cm of the right vertebral artery. 2. No dissection or focal vessel occlusion. ACT 112: Negative or not required by law. Electronically signed by: Rafi Marie M.D. 06/14/2019 11:14 AM
[2019-06-14] MEDS ORDERED: CLOPIDOGREL BISULFATE 300 MG TAB PO STA (12:11)
--- NOTE | 2019-06-14 12:28 | Magnetic Resonance Report ---
MR brain wo con CLINICAL HISTORY: 73 years-old Male presenting with Pt c/o left hand loss of coordination. TECHNIQUE: Multisequence, multiplanar MR imaging of the brain was performed without the use of intrav enous contrast. IV contrast: None. COMPARISON: Noncontrast CT head from earlier today. FINDINGS: Localizer images: Unremarkable. Bone marrow signal intensity within the calvarium within normal limits. Normal midline sagittal structures. Ventricles and sulci normal in size. No mass effect or midline sh ift. No restricted diffusion or hemorrhage. Old left occipital lobe infarct. No extra-axial fluid collection. T2 skull base flow voids preserved. IMPRESSION: 1. No acute intracranial abnormality. 2. Old left occipital lobe infarct. ACT 112: Negative or not required by law. Electronically signed by: Rafi Marie M.D. 06/14/2019 12:27 PM
--- NOTE | 2019-06-14 12:36 | History & Physical Report ---
Date of Service June 14, 2019 Assessment & Plan (1) Transient ischemic attack: Admit to PCU on telemetry Vital signs every 4 hours Follow stroke pathway without TPA In the ER started clopidogrel 300 mg p.o. x1 loading dose and continue with 75 mg daily p.o. for 3 weeks. Patient is on 162 mg of aspirin due to recent hip surgery. Continue for next 3 weeks this dose until patient sees neurology. Physical and Occupational Therapy pending Lipid panel pending and A1c. Speech therapy pending evaluation Neurology consult pending TTE pending DVT prophylaxis Lovenox 40 mg daily. Patient is a full code. Present on Admission?: Yes (2) History of right hip replacement: Stable at this time. Continue aspirin 162 mg p.o. daily. Present on Admission?: Yes (3) Carotid stenosis, left: CTA of the neck shows noncalcified atherosclerosis with 50% stenosis of the origin of the right ICA and less than 50% stenosis of the origin of the proximal 1 to 2 cm of the right vertebral artery. Consider discussing with vascular and neurology. Present on Admission?: Yes (4) BPH (benign prostatic hyperplasia): Stable. Continue alfuzosin 10 mg p.o. every afternoon. Present on Admission?: Yes (5) HLD (hyperlipidemia): Lipid panel pending. Continue fish oil 1 capsule p.o. daily, arginine 1 capsule p.o. every morning. Red yeast rice 600 mg p.o. twice daily. Present on Admission?: Yes (6) Hypertension: Patient's blood pressure fluctuates. Started hydralazine 10 mg p.o. 4 t imes daily as needed for blood pressure elevated above 160/90. Continue aspirin 162 mg p.o. twice daily, multivitamins 1 tablet p.o. every morning, amlodipine 5 mg p.o. every morning. Present on Admission?: Yes (7) COPD (chronic obstructive pulmonary disease): Stable, continue Symbicort 2 puffs inhalation twice daily. Present on Admission?: Yes (8) Constipation, acute: Patient reports that on occasion he has problems with regular bowel movements. Continue Metamucil 4 caps p.o. daily, sennosides/docusate 1 tablet p.o. as needed. Present on Admission?: Yes History of Present Illness Chief Complaint: Left side numbness Primary Care Provider: Rafi Alejandro MD Patient is a 73 years old male with past medical history of hypertension, hyperlipidemia, benign prostatic hypertrophy obs/LUTS, carotid stenosis left, history of the right hip replacement due to avascular necrosis of the right hip, ischemic stroke vertebrobasilar brainstem acute who presents to the emergency room with a complaint of feeling numbness over his left upper lower extremity which started after he woke up at 8:30 AM. Patient reports that the last time when he felt well was around midnight when he went to sleep. Patient reports that nothing happened overnight except when he woke up he had reported numbness. Since patient had a stroke before he came to the emergency room to checked it out. Stroke alert was called in the emergency room. ER physician contacted [facility] and no TPA was recommended at this time. The neurologist on-call recommended loading dose of clopidogrel 300 mg continuing with 75 daily and continue patient 162 mg aspirin. She also recommended work-up for possible stroke or TIA. Labs are reviewed: WBC is 4.98, hemoglobin 11.3, hematocrit 34.8, platelets 326, PT 10.3, INR 1, APTT 23.9, sodium 136, potassium 3.8, chloride 104, BUN 19, creatinine 1.39, GFR of 49.2, glucose of 199, calcium of 9, magnesium 1.9, AST 9, ALT 16, alkaline phosphatase 115, troponin 0.015. MRI of the brain showed no acute intracranial abnormality. Old left occipital lobe infarct. CTA of the head/ neck showed atherosclerosis of the three-vessel aortic arch with patent origin of the branch vessel. Noncalcified atherosclerosis with 50% stenosis of the origin of the right ICA and less than 50% stenosis of the origin and proximal 1 to 2 cm of the right vertebral artery. No evidence of aneurysm, focal vessel occlusion or significant stenosis of the intracranial arteries. Was made to admit patient to PCU on telemetry for further evaluation of transient ischemic attack versus possible acute stroke. A llergies Allergy/AdvReac Type Severity Reaction Status Date / Time No Known Allergies Allergy Verified 06/14/19 12:28 Home Medications Home Medications Medication Instructions Recorded Confirmed Type alfuzosin [Uroxatral] 10 mg PO PM 06/26/18 06/14/19 History multivitamin 1 tab PO QAM 06/26/18 06/14/19 History omega [id number] oil [Fish Oil] 1 cap PO QDL 06/26/18 06/14/19 History Symbicort 2 puff INHALATION BID PRN 10/07/18 06/14/19 History arginine HCl (L-arginine) 1 cap PO QAM 10/07/18 06/14/19 History psyllium husk [Metamucil] 4 cap PO QDD 10/07/18 06/14/19 History red yeast rice 600 mg capsule 600 mg PO BID 03/26/19 06/14/19 History cane #1 ea 04/16/19 06/05/19 Rx amlodipine 5 mg PO QAM 05/05/19 06/14/19 History acetaminophen [Tylenol Extra 1,000 mg PO Q8 30 Days #180 tab 05/22/19 06/14/19 Rx Strength] aspirin [Ecotrin Low Strength] 81 mg PO BID 45 Days #90 tab 05/22/19 06/14/19 Rx ondansetron HCl 4 mg tablet 4 mg PO TID PRN 5 Days #30 tab 05/29/19 06/14/19 Rx tramadol 50 mg tablet 50 - 100 mg PO Q6H PRN #30 tab 06/05/19 06/14/19 Rx pantoprazole [Protonix] 40 mg PO QAM 06/14/19 06/14/19 History sennosides-docusate sodium [P-COL 1 tab-cap PO USEASDIRECTD PRN 06/14/19 06/14/19 History RITE] Past Med/Surg History Medical History Anemia Asthma inhaler prn Avascular necrosis of bone of right hip BPH (benign prostatic hyperplasia) Carotid stenosis s/p left CEA (2014) Chronic right hip pain GERD (gastroesophageal reflux disease) controlled History of colon polyps HLD (hyperlipidemia) no meds Hypertension Osteoarthritis Peripheral arterial disease S/P stroke due to cerebrovascular disease 2014- s/p left CEA 06/2018- no deficits/neurology recommended plavix x 3 months-- since discontinued/patient on ASA 81mg Surgical History H/O carotid endarterectomy left (2014) History of colonoscopy History of esophagogastroduodenoscopy (EGD) History of open reduction and internal fixation (ORIF) procedure left elbow History of oral surgery on gums History of right hip replacement History of root canal procedure History of thumb surgery left History of tooth extraction Hx of rectal polypectomy Hx of vasectomy Family History Other Family history non-contributory No family history of adverse response to anesthesia Social History Preferred Language: Polish Communication Ability: Effective Visual Impairment: No Limitations Hearing Ability: Use of Hearing Aid Creative Technologist Required: No Beliefs That Will Affect Care: None marital status: Current Living Situation: Spouse current occupational status: retired Feels Safe at Home: Yes Smoking Status: Never smoker Tobacco Type: cigarettes ; Second Hand Exposure: Yes (DAILY BASIS) ; Hx Alcohol Use: Yes Alcohol type: beer Hx Substance Use: No Childhood Exposure to Second-Hand Smoke: No Dental Care, Regularly: Yes Physical Activity Frequency: Does not Exercise Seatbelt Use: always Sunscreen Use: Yes Review of Systems Review of Systems: All systems reviewed & are unremarkable except as noted in HPI & below Physical Exam Constitutional: WD/WN, vitals as above well developed Eyes: PERRL, conjunctivae normal, anicteric sclerae ENMT: external ear and nose normal, oropharynx normal Cardiovascular: RRR, no murmur, no edema Gastrointestinal (Abdomen): normal bowel sounds, soft, nontender, no hepatosplenomegaly Musculoskeletal: no cyanosis or clubbing, extremities motor strength 5/5 Skin: no rashes, warm and dry Neurologic: PERRL, EOMI, accommodation nl, no face palsy, no dysarthria Patient reports decreased sensation over the left upper and left lower extremity especially touch. Cranial nerves II to XII grossly intact. No focal deficit. Patient moves all extremities. Psychiatric: A+Ox3, euthymic affect Lymphatic: no cervical or axillary lymphadenopathy Results & Data Vital Signs (Past 12 Hours) Vital Signs Temp Pulse Resp BP Pulse Ox 06/14/19 11:31 100 H 17 97 06/14/19 11:30 97 H 16 156/83 H 96 06/14/19 11:16 103 H 17 97 06/14/19 11:15 104 H 16 173/95 H 06/14/19 11:06 109 H 15 98 06/14/19 11:05 104 H 17 162/99 H 98 06/14/19 11:00 106 H 16 06/14/19 10:50 108 H 18 166/86 H 06/14/19 10:49 109 H 17 06/14/19 10:30 110 H 22 06/14/19 10:17 36.4 C L 118 H 18 169/77 H 99 Code Status & VTE Plan Code Status Full code VTE Prophylaxis Plan VTE Prophylaxis will be ordered: Yes PG Care Time/CCT Total # of Minutes Spent Total Time Spent with Patient: Total time spent is greater than 50% in coordination of care (as documented) at patient's floor/unit and/or counseling patient: (1) BPH (benign prostatic hyperplasia) Lower urinary tract symptom presence: symptoms absent Qualified Code(s): N40.0 - Benign prostatic hyperplasia without lower urinary tract symptoms (2) HLD (hyperlipidemia) Hyperlipidemia type: mixed hyperlipidemia Qualified Code(s): E78.2 - Mixed hyperlipidemia (3) Hypertension Hypertension type: essential hypertension Qualified Code(s): I10 - Essential (primary) hypertension
--- NOTE | 2019-06-14 14:00 | Emergency Department Note ---
Entered by Dionne Casarez acting as a scribe for History of Present Illness General Chief complaint: Neuro Symptoms/Deficit Stated complaint: LEFT ARM/HAND/LEG NUMBNESS- HX TIA Time Seen by Provider: 06/14/19 10:23 Source: patient Mode of arrival: ambulatory Limitations: no limitations History of Present Illness Provider complaint: Neurological symptoms Onset (ago): hour(s) (around 0830) 2 Location: upper extremity (hand), lower extremity (foot) and left Pain Consistency: + other (worsening) Maximum Pain Intensity: 3 Quality: + other (tingling) Associated symptoms: + weakness and + other (Additional symptoms: right leg pain. Denies: left leg pain) Treatments prior to arrival: none The patient is a 73 year old male with a history of 2 TIAs, hypertension, hyperlipidemia, catorid stenosis, BPH, avascular necrosis of bone of right hip, right hip replacement, and carotid endarterectomy who presents to the Emergency Room with complaints of worsening left-sided neurological symptoms starting around 0830 this morning. The patient reports that he got a good night's sleep last night and was sitting down to drink his coffee and eat his breakfast when he started noticing some tingling in his left food and hand, accompanied by weakness and a "goofy" feeling. He denies any lightheadedness. Prior to last night, he states that he has not had good sleep secondary to right lower extremity pain following right hip surgery performed by Dr. Javed on May 21. He notes that his pain from his right hip down to his right quadriceps is still present but improving, and he denies any pain in his left leg. The patient explains that he came to the ED out of concern for his history of TIAs. He reports that his first TIA occurred in October 2014 while he was camping. He recalls that he experienced aphasia and subsequently had an endarterectomy performed by Dr. Bacon in [place]. He states that his second TIA occurred in June 2018 and was characterized by vertigo and dizziness. He notes that he was placed on a blood thinner for 30 days following his second TIA, but is currently only on 2 baby aspirin. He mentions that he took his aspirin and Amlodipine this morning prior to arrival. The patient indicated that he is right-handed. Home Medications Home Medications Medication Instructions Recorded Confirmed Type alfuzosin [Uroxatral] 10 mg PO PM 06/26/18 06/14/19 History multivitamin 1 tab PO QAM 06/26/18 06/14/19 History omega 5-yls-pas-fish oil [Fish Oil] 1 cap PO QDL 06/26/18 06/14/19 History Symbicort 2 puff INHALATION BID PRN 10/07/18 06/14/19 History arginine HCl (L-arginine) 1 cap PO QAM 10/07/18 06/14/19 History psyllium husk [Metamucil] 4 cap PO QDD 10/07/18 06/14/19 History red yeast rice 600 mg capsule 600 mg PO BID 03/26/19 06/14/19 History cane #1 ea 04/16/19 06/05/19 Rx amlodipine 5 mg PO QAM 05/05/19 06/14/19 History acetaminophen [Tylenol Extra 1,000 mg PO Q8 30 Days #180 tab 05/22/19 06/14/19 Rx Strength] aspirin [Ecotrin Low Strength] 81 mg PO BID 45 Days #90 tab 05/22/19 06/14/19 Rx ondansetron HCl 4 mg tablet 4 mg PO TID PRN 5 Days #30 tab 05/29/19 06/14/19 Rx tramadol 50 mg tablet 50 - 100 mg PO Q6H PRN #30 tab 06/05/19 06/14/19 Rx pantoprazole [Protonix] 40 mg PO QAM 06/14/19 06/14/19 History sennosides-docusate sodium [P-COL 1 tab-cap PO USEASDIRECTD PRN 06/14/19 06/14/19 History RITE] Allergies Allergy/AdvReac Type Severity Reaction Status Date / Time No Known Allergies Allergy Verified 06/14/19 12:28 Past Med/Surg History Medical History Anemia Asthma inhaler prn Avascular necrosis of bone of right hip BPH (benign prostatic hyperplasia) Carotid stenosis s/p left CEA (2014) Chronic right hip pain GERD (gastroesophageal reflux disease) controlled History of colon polyps HLD (hyperlipidemia) no meds Hypertension Osteoarthritis Peripheral arterial disease S/P stroke due to cerebrovascular disease 2014- s/p left CEA 06/2018- no deficits/neurology recommended plavix x 3 months-- since discontinued/patient on ASA 81mg Surgical History H/O carotid endarterectomy left (2014) History of colonoscopy History of esophagogastroduodenoscopy (EGD) History of open reduction and internal fixation (ORIF) procedure left elbow History of oral surgery on gums History of right hip replacement History of root canal procedure History of thumb surgery left History of tooth extraction Hx of rectal polypectomy Hx of vasectomy Family History Mother , age 93 Hypertension Father , age 52 of lung cancer Lung cancer Other Family history non-contributory No family history of adverse response to anesthesia Social History Preferred Language: Greek Communication Ability: Effective Visual Impairment: No Limitations Hearing Ability: Use of Hearing Aid Marine Designer Required: No Beliefs That Will Affect Care: None marital status: Current Living Situation: Spouse Current Living Situation Comment: own home current occupational status: retired current occupation: 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 Feels Safe at Home: Yes Safety Concerns: Feels Safe At This Time Smoking Status: Former smoker Tobacco Type: cigarettes ; Smoking End Date: 1970 ; Second Hand Exposure: Yes (DAILY BASIS) ; Hx Alcohol Use: Yes Alcohol type: beer Alcohol type Comment: One per day most days Hx Substance Use: No Childhood Exposure to Second-Hand Smoke: No Dental Care, Regularly: Yes Physical Activity Frequency: Does not Exercise Seatbelt Use: always Sunscreen Use: Yes Review of Systems See HPI for pertinent positives & negatives. and A total of 10 systems reviewed and were otherwise negative Physical Exam Vital Signs Vital Signs - 24 hr 06/14/19 10:17 06/14/19 10:30 06/14/19 10:49 Temperature 36.4 C L Temperature Source Oral Pulse Rate 118 H 110 H 109 H Pulse Rate from SpO2 Sensor Respiratory Rate 18 22 17 Blood Pressure 169/77 H Blood Pressure Mean 107 Pulse Oximetry 99 Oxygen Delivery Method Room Air Sepsis Recent Fever Within 48 Hours No Sepsis New/Unexplained Change in Mental Status No Sepsis Action Taken by Nursing No Action Required 06/14/19 10:50 06/14/19 11:00 06/14/19 11:05 Temperature Temperature Source Pulse Rate 108 H 106 H 104 H Pulse Rate from SpO2 Sensor 100 H Respiratory Rate 18 16 17 Blood Pressure 166/86 H 162/99 H Blood Pressure Mean 121 122 Pulse Oximetry 98 Oxygen Delivery Method Sepsis Recent Fever Within 48 Hours Sepsis New/Unexplained Change in Mental Status Sepsis Action Taken by Nursing 06/14/19 11:06 06/14/19 11:15 06/14/19 11:16 Temperature Temperature Source Pulse Rate 109 H 104 H 103 H Pulse Rate from SpO2 Sensor 110 H 101 H Respiratory Rate 15 16 17 Blood Pressure 173/95 H Blood Pressure Mean 128 Pulse Oximetry 98 97 Oxygen Delivery Method Sepsis Recent Fever Within 48 Hours Sepsis New/Unexplained Change in Mental Status Sepsis Action Taken by Nursing 06/14/19 11:30 06/14/19 11:31 Temperature Temperature Source Pulse Rate 97 H 100 H Pulse Rate from SpO2 Sensor 97 H 94 H Respiratory Rate 16 17 Blood Pressure 156/83 H Blood Pressure Mean 94 Pulse Oximetry 96 97 Oxygen Delivery Method Sepsis Recent Fever Within 48 Hours Sepsis New/Unexplained Change in Mental Status Sepsis Action Taken by Nursing GENERAL: Awake, alert, well-appearing, in no acute distress HENT: Normocephalic, atraumatic. Oropharynx unremarkable. EYES: Normal conjunctiva. Sclera non-icteric. NECK: Supple. No nuchal rigidity. FROM. No JVD. RESPIRATORY: Clear to auscultation. CARDIAC: Regular rate, normal rhythm. Extremities warm and well perfused. Pulses equal. ABDOMEN: Soft, non-distended. No tenderness to palpation. No rebound or guarding. No masses. RECTAL: Deferred. MUSCULOSKELETAL: Chest examination reveals no tenderness. The back is symmetrical on inspection without obvious abnormality. There is no CVA tenderness to palpation. No joint edema. LOWER EXTREMITIES: Calves are equal size bilaterally and non-tender. No edema. No discoloration. NEURO: Normal sensorium. No sensory or motor deficits noted. SKIN: No rash or jaundice noted. Course Course 1026: The patient was evaluated in room B12B, and a complete history and physical examination were performed. 1123: I reviewed the patient's case with Dr. Ulrich - Hospitalist, [facility]. Dr. Ulrich will evaluate the patient for further management. Consultations Consultation #1: I reviewed the patient's case with Dr. Ulrich - Hospitalist, [facility]. Dr. Ulrich will evaluate the patient for further management. Time: 11:23 Administered Medications Alfuzosin HCl (Uroxatral) 10 mg PO PM [facility] Stop: 07/14/19 20:59 Last Admin: 06/14/19 20:33 Dose: 10 mg Documented by: [id number] [facility]odipine Bes[facility] ([facility]asc) [facility] [place] Stop: 07/15/19 08:59 Last Admin: 06/15/19 09:07 Dose: 5 mg Documented by: [id number] Aspirin (Ecotrin Ectab) 81 mg PO BID [facility] Stop: 07/14/19 20:59 Last Admin: 06/15/19 09:07 Dose: 81 mg Documented by: [id number] Admin: 06/14/19 20:33 Dose: 81 mg Documented by: [id number] Atorvastatin Calcium (Lipitor) [facility] [place] Stop: 07/15/19 08:59 Last Admin: 06/15/19 09:08 Dose: 40 mg Documented by: [id number] Clopidogrel Bisulfate (Plavix) 75 [facility] [place] Stop: 07/15/19 08:59 Last Admin: 06/15/19 09:07 Dose: 75 mg Documented by: [id number] Enoxaparin Sodium (Lovenox) 40 mg SQ Q24H [facility] Stop: 07/14/19 17:59 Last Admin: 06/14/19 17:56 Dose: 40 mg Documented by: [id number] Fish Oil (Holland-3 (Purified Fish Oil)) 1 gm PO QDL [facility] Stop: 07/15/19 11:29 Last Admin: 06/15/19 13:04 Dose: 1 gm Documented by: [id number] Multivitamins (Multivitamin Tab) 1 tab PO [facility] Stop: 07/15/19 08:59 Last Admin: 06/15/19 09:07 Dose: 1 tab Documented by: [id number] Pantoprazole Sodium (Protonix) 40 [facility] [place] Stop: 07/15/19 08:59 Last Admin: 06/15/19 09:07 Dose: 40 mg Documented by: [id number] Polyethylene Glycol (Miralax Powder Packet) 17 gm PO DAILY PRN PRN Reason: Constipation Stop: 07/14/19 14:18 Last Admin: 06/14/19 20:41 Dose: 17 gm Documented by: [id number] Discontinued Medications Clopidogrel Bisulfate (Plavix) 300 mg PO NOW STA Stop: 06/14/19 12:12 Last Admin: 06/14/19 13:25 Dose: 300 mg Documented by: [id number] Sodium Chloride (Nss 1000ml) 1,000 mls @ 999 mls/hr IV .Q1H1M ONE Stop: 06/14/19 11:33 Last Infusion: 06/14/19 13:26 Dose: 0 mls/hr Documented by: [id number] Admin: 06/14/19 11:36 Dose: 999 mls/hr Documented by: [id number] Magnesium Sulfate/Dextrose (Magnesium Sulfate / D5w) 1 gm in 100 mls @ 100 mls/hr IV ONE ONE Stop: 06/14/19 11:32 Last Infusion: 06/14/19 13:26 Dose: 0 mls/hr Documented by: [id number] Admin: 06/14/19 11:37 Dose: 100 mls/hr Documented by: [id number] Magnesium Sulfate/Dextrose (Magnesium Sulfate / D5w) 1 gm in 100 mls @ 100 mls/hr IV ONE ONE Stop: 06/14/19 11:46 Last Admin: 06/14/19 11:31 Dose: Not Given Documented by: [id number] Sodium Chloride (Nss 1000ml) 1,000 mls @ 999 mls/hr IV .Q1H1M ONE Stop: 06/14/19 11:47 Last Admin: 06/14/19 11:31 Dose: Not Given Documented by: [id number] Sodium Chloride (Nss 1000ml) 1,000 mls @ 80 mls/hr IV .[id number] FRIEDA Stop: 06/15/19 02:48 Last Infusion: 06/15/19 04:15 Dose: 0 mls/hr Documented by: [id number] Admin: 06/14/19 16:04 Dose: 80 mls/hr Documented by: [id number] Ioversol (Optiray 320 125ml) 119 ml IV ONCE PRN PRN Reason: Interaction Checking Stop: 06/18/19 10:41 Last Admin: 06/14/19 10:43 Dose: 119 ml Documented by: [id number] Medical Decision Making Differential Diagnosis Differential diagnosis: Etiologies such as metabolic, infection, hypo/hyperglycemia, electrolyte abnormalities, cardiac sources, intracerebral event, toxicologic, neurologic, as well as others were entertained. Medical Records Attestation: I reviewed the patient's medical records. Home Medications Current Medication List: was personally reviewed by me Laboratory Data Attestation: I reviewed the patient's lab results. Result diagrams: 06/15/19 05:55 06/15/19 05:55 Lab Results 06/14/19 06/14/19 06/14/19 Range/Units 10:30 10:30 10:30 WBC 4.98 (4.8-10.8) K/uL RBC 3.84 L (4.7-6.1) M/uL Hgb 11.3 L (14.0-18.0) g/dL POC Hgb (14.0-18.0) g/dl Hct 34.8 L (42-52) % POC Hct (42-52) % MCV 90.6 (80-100) fL MCH 29.4 (25-34) pg MCHC 32.5 (32-36) g/dL RDW Std Deviation 44.2 (36.4-46.3) fL RDW Coeff of Tyrone 13.4 (11.5-14.5) % Plt Count 326 (130-400) K/uL MPV 9.5 (7.4-10.4) fL Immature Gran % (Auto) 0.4 % Neut % (Auto) 55.3 % Lymph % (Auto) 32.9 % Barrow % (Auto) 9.4 % Eos % (Auto) 1.6 % Baso % (Auto) 0.4 % Immature Gran # (Auto) 0.02 (0.00-0.02) K/uL Neut # (Auto) 2.75 (1.4-6.5) K/uL Lymph # (Auto) 1.64 (1.2-3.4) K/uL Barrow # (Auto) 0.47 (0.11-0.59) K/uL Eos # (Auto) 0.08 (0-0.5) K/uL Baso # (Auto) 0.02 (0-0.2) K/uL PT 10.3 (9.0-12.0) Seconds INR 1.0 (0.9-1.1) APTT 23.9 (21.0-31.0) Seconds PTT Ratio 0.9 POC Sodium (135-144) mEq/L Sodium 136 (136-145) mmol/L POC Potassium (3.3-5.0) mEq/L Potassium 3.8 (3.5-5.1) mmol/L POC Chloride (101-112) mEq/L Chloride 104 (98-107) mmol/L Carbon Dioxide 27 (21-32) mmol/L POC Total CO2 (24-31) mEq/l Anion Gap 5.0 (3-11) POC Anion Gap (16-25) mmol/L POC BUN (7-18) mg/dl BUN 19 H (7-18) mg/dl Creatinine 1.39 (0.6-1.4) mg/dl POC Creatinine (0.6-1.3) mg/dl Est Cr Clr Drug Dosing 48.9 ml/min Est GFR ( Amer) 57.1 Est GFR (Non-Af Amer) 49.2 BUN/Creatinine Ratio 13.3 (10-20) Glucose 196 H (70-99) mg/dl POC Glucose (70-99) POC Glucose (other) (70-99) mg/dl Calcium 9.0 (8.5-10.1) mg/dl POC Ioniz Calcium Michael (1.12-1.32) mmol/l Magnesium 1.9 (1.8-2.4) mg/dl Total Bilirubin 0.4 (0.2-1) mg/dl AST 9 L (15-37) U/L ALT 16 (12-78) U/L Alkaline Phosphatase 115 (45-117) U/L Troponin I < 0.015 (0-0.045) ng/ml NT-Pro-B Natriuret Pep (0-900) pg/ml Total Protein 7.5 (6.4-8.2) gm/dl Albumin 3.7 (3.4-5.0) gm/dl Globulin 3.8 (2.5-4.0) gm/dl Albumin/Globulin Ratio 1.0 (0.9-2) Triglycerides (0-150) mg/dl Cholesterol (0-200) mg/dl LDL Cholesterol, Calc mg/dl VLDL Cholesterol, Calc mg/dl HDL Cholesterol mg/dl Cholesterol/HDL Ratio TSH (0.300-4.500) uIu/ml 06/14/19 06/14/19 06/14/19 Range/Units 10:30 10:30 10:32 WBC (4.8-10.8) K/uL RBC (4.7-6.1) M/uL Hgb (14.0-18.0) g/dL POC Hgb (14.0-18.0) g/dl Hct (42-52) % POC Hct (42-52) % MCV (80-100) fL MCH (25-34) pg MCHC (32-36) g/dL RDW Std Deviation (36.4-46.3) fL RDW Coeff of Tyrone (11.5-14.5) % Plt Count (130-400) K/uL MPV (7.4-10.4) fL Immature Gran % (Auto) % Neut % (Auto) % Lymph % (Auto) % Barrow % (Auto) % Eos % (Auto) % Baso % (Auto) % Immature Gran # (Auto) (0.00-0.02) K/uL Neut # (Auto) (1.4-6.5) K/uL Lymph # (Auto) (1.2-3.4) K/uL Barrow # (Auto) (0.11-0.59) K/uL Eos # (Auto) (0-0.5) K/uL Baso # (Auto) (0-0.2) K/uL PT (9.0-12.0) Seconds INR (0.9-1.1) APTT (21.0-31.0) Seconds PTT Ratio POC Sodium (135-144) mEq/L Sodium (136-145) mmol/L POC Potassium (3.3-5.0) mEq/L Potassium (3.5-5.1) mmol/L POC Chloride (101-112) mEq/L Chloride (98-107) mmol/L Carbon Dioxide (21-32) mmol/L POC Total CO2 (24-31) mEq/l Anion Gap (3-11) POC Anion Gap (16-25) mmol/L POC BUN (7-18) mg/dl BUN (7-18) mg/dl Creatinine (0.6-1.4) mg/dl POC Creatinine (0.6-1.3) mg/dl Est Cr Clr Drug Dosing ml/min Est GFR ( Amer) Est GFR (Non-Af Amer) BUN/Creatinine Ratio (10-20) Glucose (70-99) mg/dl POC Glucose 207 H (70-99) POC Glucose (other) (70-99) mg/dl Calcium (8.5-10.1) mg/dl POC Ioniz Calcium Michael (1.12-1.32) mmol/l Magnesium (1.8-2.4) mg/dl Total Bilirubin (0.2-1) mg/dl AST (15-37) U/L ALT (12-78) U/L Alkaline Phosphatase (45-117) U/L Troponin I (0-0.045) ng/ml NT-Pro-B Natriuret Pep 20 (0-900) pg/ml Total Protein (6.4-8.2) gm/dl Albumin (3.4-5.0) gm/dl Globulin (2.5-4.0) gm/dl Albumin/Globulin Ratio (0.9-2) Triglycerides 153 H Cancelled (0-150) mg/dl Cholesterol 197 Cancelled (0-200) mg/dl LDL Cholesterol, Calc 116 Cancelled mg/dl VLDL Cholesterol, Calc 31 Cancelled mg/dl HDL Cholesterol 50 Cancelled mg/dl Cholesterol/HDL Ratio 4 Cancelled TSH 2.540 (0.300-4.500) uIu/ml 06/14/19 Range/Units 10:33 WBC (4.8-10.8) K/uL RBC (4.7-6.1) M/uL Hgb (14.0-18.0) g/dL POC Hgb 12.2 L (14.0-18.0) g/dl Hct (42-52) % POC Hct 36 L (42-52) % MCV (80-100) fL MCH (25-34) pg MCHC (32-36) g/dL RDW Std Deviation (36.4-46.3) fL RDW Coeff of Tyrone (11.5-14.5) % Plt Count (130-400) K/uL MPV (7.4-10.4) fL Immature Gran % (Auto) % Neut % (Auto) % Lymph % (Auto) % Barrow % (Auto) % Eos % (Auto) % Baso % (Auto) % Immature Gran # (Auto) (0.00-0.02) K/uL Neut # (Auto) (1.4-6.5) K/uL Lymph # (Auto) (1.2-3.4) K/uL Barrow # (Auto) (0.11-0.59) K/uL Eos # (Auto) (0-0.5) K/uL Baso # (Auto) (0-0.2) K/uL PT (9.0-12.0) Seconds INR (0.9-1.1) APTT (21.0-31.0) Seconds PTT Ratio POC Sodium 137 (135-144) mEq/L Sodium (136-145) mmol/L POC Potassium 3.9 (3.3-5.0) mEq/L Potassium (3.5-5.1) mmol/L POC Chloride 100 L (101-112) mEq/L Chloride (98-107) mmol/L Carbon Dioxide (21-32) mmol/L POC Total CO2 27 (24-31) mEq/l Anion Gap (3-11) POC Anion Gap 14.0 L (16-25) mmol/L POC BUN 20 H (7-18) mg/dl BUN (7-18) mg/dl Creatinine (0.6-1.4) mg/dl POC Creatinine 1.2 (0.6-1.3) mg/dl Est Cr Clr Drug Dosing ml/min Est GFR ( Amer) Est GFR (Non-Af Amer) BUN/Creatinine Ratio (10-20) Glucose (70-99) mg/dl POC Glucose (70-99) POC Glucose (other) 199 H (70-99) mg/dl Calcium (8.5-10.1) mg/dl POC Ioniz Calcium Michael 1.16 (1.12-1.32) mmol/l Magnesium (1.8-2.4) mg/dl Total Bilirubin (0.2-1) mg/dl AST (15-37) U/L ALT (12-78) U/L Alkaline Phosphatase (45-117) U/L Troponin I (0-0.045) ng/ml NT-Pro-B Natriuret Pep (0-900) pg/ml Total Protein (6.4-8.2) gm/dl Albumin (3.4-5.0) gm/dl Globulin (2.5-4.0) gm/dl Albumin/Globulin Ratio (0.9-2) Triglycerides (0-150) mg/dl Cholesterol (0-200) mg/dl LDL Cholesterol, Calc mg/dl VLDL Cholesterol, Calc mg/dl HDL Cholesterol mg/dl Cholesterol/HDL Ratio TSH (0.300-4.500) uIu/ml Imaging Data Radiologist's Impression: Radiology results as stated below per my review and the radiologist's interpretation: CT head/brain wo con CLINICAL HISTORY: 73 years-old Male presenting with Stroke evaluation. TECHNIQUE: Multidetector CT imaging of the head was performed without the use of intravenous contrast. IV contrast: None. One or more dose lowering techniques were used consistent with the principles of ALARA (as low as reasonably achievable), including automatic exposure control, mA or kV adjustment to individual patient size, and/or use of iterative reconstruction. COMPARISON: 06/26/2018. CT DOSE (mGy.cm): The estimated cumulative dose is 1160.73. FINDINGS: Electric Distribution Checker topogram: Unremarkable. Ventricles and sulci normal in size. No hemorrhage. Old left occipital lobe infarct. No acute territorial infarct. No mass effect or midline shift. No extra-axial fluid collection. Paranasal sinuses and mastoid air cells clear. Calvarium intact. IMPRESSION: 1. No significant change compared to the prior study. No acute intracranial abnormality. 2. Old left occipital lobe infarct. ACT 112: Negative or not required by law. Electronically signed by: Rafi Marie M.D. 06/14/2019 11:[address] angio head w con CLINICAL HISTORY: 73 years-old Male presenting with Pt left sided numbness. TECHNIQUE: Multidetector CT angiography of the head was performed after the adm inistration of intravenous contrast. 3-D volumetric and/or maximum intensity projection (MIP) images were subsequently reconstructed for review. IV contrast: None. One or more dose lowering techniques were used consistent with the principles of ALARA (as low as reasonably achievable), including automatic exposure control, mA or kV adjustment to individual patient size, and/or use of iterative reconstruction. COMPARISON: 06/26/2018. CT DOSE (mGy.cm): The estimated cumulative dose is 1160.73 mGy.cm. FINDINGS: Electric Distribution Checker topogram: Unremarkable. Anterior circulation: Intracranial portions of the internal carotid arteries patent to the level of the termini. Anterior cerebral arteries patent. Middle cerebral arteries patent. Anterior communicating artery patent. Posterior circulation: Right dominant vertebral artery. Intradural portions of the vertebral arteries patent. Posterior inferior cerebellar arteries patent. Basilar artery patent. Anterior inferior cerebellar arteries poorly visualized. Superior cerebellar arteries patent. Posterior cerebral arteries patent. Prominent infundibulum at the origin of the left posterior communicating artery as on prior exam. Hypoplastic or aplastic right posterior communicating artery. Dural venous sinuses: Patent. Other: Old left occipital lobe infarct noted. Calvarium intact. IMPRESSION: 1. No evidence of aneurysm, focal vessel occlusion, or significant stenosis of the intracranial arteries. ACT 112: Negative or not required by law. Electronically signed by: Rafi Marie M.D. 06/14/2019 11:[address] angio neck with con CLINICAL HISTORY: 73 years-old Male presenting with Pt left sided numbness. TECHNIQUE: Multidetector CT angiography of the neck was performed after the administration of intravenous contrast. 3-D volumetric and/or maximum intensity projection (MIP) images were subsequently reconstructed for review. IV contrast: 119 mL of Optiray 320. One or more dose lowering techniques were used consistent with the principles of ALARA (as low as reasonably achievable), including automatic exposure control, mA or kV adjustment to individual patient size, and/or use of iterative reconstruction. Stenosis measurements were based on NASCET-like criteria (distal lumen diameter as the denominator for stenosis measurement). COMPARISON: 06/26/2018. CT DOSE (mGy.cm): The estimated cumulative dose is 1160.73. FINDINGS: Electric Distribution Checker topogram: Unremarkable. Aortic arch: Atherosclerosis of the three-vessel aortic arch with patent origins of the branch vessels. Innominate artery: Patent. Right subclavian artery: Patent. Right common carotid artery: Patent. Right internal and external carotid arteries: Noncalcified atherosclerotic plaque at the carotid bifurcation with 50% stenosis of the origin of the internal carotid artery. The remainder of the course of the ICA is patent. E xternal carotid artery patent. Left common carotid artery: Patent. Left internal and external carotid arteries: Left carotid bifurcation patent. Left internal and external carotid arteries widely patent. Left subclavian artery: Patent. Vertebral arteries: Right dominant vertebral artery. Less than 50% stenosis of the origin and proximal 1 to 2 cm of the right vertebral artery. Left vertebral artery widely patent at its origin and along its course. Other: Limited intracranial evaluation within normal limits. Soft tissues of the neck normal allowing for the phase of contrast. Degenerative changes of the cervical spine. Lung apices clear. IMPRESSION: 1. Noncalcified atherosclerosis with 50% stenosis of the origin of the right ICA and less than 50% stenosis of the origin and proximal 1 to 2 cm of the right vertebral artery. 2. No dissection or focal vessel occlusion. ACT 112: Negative or not required by law. Electronically signed by: Rafi Marie M.D. 06/14/2019 11:14 AM MR brain wo con CLINICAL HISTORY: 73 years-old Male presenting with Pt c/o left hand loss of coordination. TECHNIQUE: Multisequence, multiplanar MR imaging of the brain was performed without the use of intravenous contrast. IV contrast: None. COMPARISON: Noncontrast CT head from earlier today. FINDINGS: Localizer images: Unremarkable. Bone marrow signal intensity within the calvarium within normal limits. Normal midline sagittal structures. Ventricles and sulci normal in size. No mass effect or midline shift. No restricted diffusion or hemorrhage. Old left occipital lobe infarct. No extra-axial fluid collection. T2 skull base flow voids preserved. IMPRESSION: 1. No acute intracranial abnormality. 2. Old left occipital lobe infarct. ACT 112: Negative or not required by law. Electronically signed by: Rafi Marie M.D. 06/14/2019 12:27 PM ECG Data Attestation: I personally reviewed and interpreted this ECG as follows: Indication: + other (neurological symptoms) Rate (beats per minute): 110 Rhythm: + sinus tachycardia ECG Wells: + Left axis deviation ECG ST segments: no ST depression and no ST elevation ECG Findings: + Other (QTc is 430) Blood Pressure Blood Pressure Findings: Elevated blood pressure Blood Pressure Disposition: further management by hospitalist [facility] Emir This is a 73-year-old male who presents emergency department over concerns of left-sided numbness as well as loss of fine motor coordination of his left hand. Using shared medical decision making with the patient decision was made to send the patient for CAT scan of the head as well as CTA head and neck. 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 Based on the patient's symptoms I did discuss the case with the neurologist on-call at [facility] who felt that the patient should be admitted for continued stroke work-up. He was given normal saline bolus here as well as magnesium. Patient was in agreement with the treatment plan. Impression & Plan Hypertension, Numbness on left side Discharge Plan Visit Data *Final* Discharge Date/Time: 06/14/19 13:38 Chief Complaint: Neuro Symptoms/Deficit Stated Complaint: LEFT ARM/HAND/LEG NUMBNESS- HX TIA ED Provider: Mani Smith Discharge Problem: Hypertension, Numbness on left side Patient Disposition: Admitted As Inpatient Discharge Instructions Interventions: ED Discharge Assessment Last Done: 06/14/19 13:38 Discharge Problem: Hypertension Qualifiers: Hypertension type: unspecified Qualified Code(s): I10 - Essential (primary) hypertension The scribe's documentation has been prepared under my direction and personally reviewed by me in its entirety. I confirm that the note above accurately reflects all work, treatment, procedures, and medical decision making performed by me.
[2019-06-14] MEDS ORDERED: SODIUM CHLORIDE 0.9% 1000ML 1,000 ML IV SCH (14:19)
[2019-06-14] MEDS ORDERED: HydrALAZINE 10 MG TAB PO PRN (14:19)
[2019-06-14] MEDS ORDERED: ACETAMINOPHEN 325 MG TAB PO PRN (14:19)
[2019-06-14] MEDS ORDERED: BUDESONIDE/FORMOTEROL FUMARATE 80/4.5 60 PUFFS/INHALER INH PRN (14:19)
[2019-06-14] MEDS ORDERED: ALUMINUM/MAGNESIUM SUSP 30 ML UDC PO PRN (14:19)
[2019-06-14] MEDS ORDERED: TRAMADOL HCL 50 MG TABLET PO PRN (14:19)
[2019-06-14] MEDS ORDERED: MAGNESIUM HYDROXIDE SUSP 30 ML UDC PO PRN (14:19)
[2019-06-14] MEDS ORDERED: PHARMACIST DISCHARGE MED REC CONSULT PRN (14:19)
[2019-06-14] MEDS ORDERED: ZOLPIDEM TARTRATE 5 MG TAB PO PRN (14:19)
[2019-06-14] MEDS ORDERED: POLYETHYLENE (MIRALAX) 17 GM PACK PO PRN (14:19)
[2019-06-14 14:59] LABS: Thyroid Stimulating Hormone 2.54 uIu/ml (0.300-4.500)
[2019-06-14] MEDS ORDERED: PSYLLIUM HUSK PO SCH (16:30)
[2019-06-14] MEDS ORDERED: ENOXAPARIN INJ 40 MG/0.4 ML SYR SQ SCH (18:00)
[2019-06-14] MEDS: ASPIRIN 81 MG ECTAB PO SCH (20:33)
[2019-06-14] MEDS ORDERED: NON-FORMULARY MEDICATION (Red Yeast Rice 600 MG) PO SCH (21:00)
[2019-06-14] MEDS ORDERED: ALFUZOSIN HCL 10 MG TAB PO SCH (21:00)
[2019-06-15 06:12] LABS: Basophils # (auto) 0.01 K/uL (0-0.2); Basophils % (auto) 0.3 %; Eosinophils # (auto) 0.08 K/uL (0-0.5); Hematocrit (blood only) 31.3 % (42-52); Hemoglobin 10.2 g/dL (14.0-18.0); Immature Granulocytes # (auto) 0.01 K/uL (0.00-0.02); Immature Granulocytes % (auto) 0.3 %; Lymphocytes # (auto) 0.87 K/uL (1.2-3.4); Lymphocytes % (auto) 22.3 %; Mean Corpuscular Hemoglobin 29.4 pg (25-34); Mean Corpuscular Hgb Conc 32.6 g/dL (32-36); Mean Corpuscular Volume 90.2 fL (80-100); Mean Platelet Volume 9.3 fL (7.4-10.4); Monocytes # (auto) 0.52 K/uL (0.11-0.59); Monocytes % (auto) 13.3 %; Neutrophils # (auto) 2.42 K/uL (1.4-6.5); Neutrophils % (auto) 61.8 %; Platelet Count 266 K/uL (130-400); RDW Coefficient of Variation 13.4 % (11.5-14.5); RDW Standard Deviation 44.3 fL (36.4-46.3); Red Blood Count 3.47 M/uL (4.7-6.1); White Blood Count 3.91 K/uL (4.8-10.8)
[2019-06-15 06:46] LABS: Albumin Level 3.1 gm/dl (3.4-5.0); BUN Creatinine Ratio 13.7 (10-20); Calcium 8.3 mg/dl (8.5-10.1); Creatinine Clr Calc Pharmacy 63.5 ml/min; Est GFR (African American) 78.3; Est GFR (Non-African American) 67.5
[2019-06-15 06:56] LABS: Bilirubin,Total 0.4 mg/dl (0.2-1); Globulin 3.1 gm/dl (2.5-4.0); Total Protein 6.2 gm/dl (6.4-8.2)
[2019-06-15] MEDS ORDERED: AMLODIPINE BESYLATE 5 MG TAB PO SCH (09:00)
[2019-06-15] MEDS ORDERED: PANTOprazole 40 MG TAB PO SCH (09:00)
[2019-06-15] MEDS ORDERED: ARGININE HCL PO SCH (09:00)
[2019-06-15] MEDS ORDERED: CLOPIDOGREL BISULFATE 75 MG TAB PO SCH (09:00)
[2019-06-15] MEDS ORDERED: MULTIVITAMIN TAB PO SCH (09:00)
[2019-06-15] MEDS: ASPIRIN 81 MG ECTAB PO SCH (09:07)
[2019-06-15] MEDS: ATORVASTATIN 40 MG TAB PO SCH ×2 (09:08→15:17)
--- NOTE | 2019-06-15 10:22 | Neurology Consultation ---
Date of Consultation June 15, 2019 Assessment & Plan (1) Transient ischemic attack: (2) Carotid stenosis, right: (3) Hypertension: (4) HLD (hyperlipidemia): This patient had an episode June 14 of left-sided numbness and dysesthesias which resolved by 12 hours. Currently, he has no focal neurologic deficits, meningeal signs, or encephalopathy. MRI of the brain showed no new stroke. There was an old left occipital stroke with a small nature and mild to moderate old diffuse nonspecific small vessel ischemic disease. Patient has a history of right carotid stenosis approximately 50%. I am not convinced that this had anything to do with his TIA event (although it is possible). The rest of his CT angiography of the head and neck were largely unremarkable. Patient has a history of hypertension and dyslipidemia. These parameters are currently unremarkable. Recommendations: 1. Discontinue aspirin and continue clopidogrel 75 mg daily. I would keep clopidogrel indefinitely. 2. Control blood pressure a meaning for a mean arterial pressure of 95-100. 3. Continue his fish oil supplement daily. I do not see where he needs a statin at this time. 4. I see no need for additional neurologic testing or treatment at this time. 5. Follow-up with Dr. Flowers as an outpatient. Overall, I spent a total of 110 minutes with this case including review of records, review of MRI films, direct evaluation the patient, and discussing the case with the patient at bedside, his RN at bedside, and Dr. Mcneal, including differential diagnosis and treatment options. History of Present Illness Reason for Consultation: Patient is a 73 year old, who I was asked to see at the request of Dr. Ulrich, for neurologic consultation regarding stroke versus TIA. Requesting Physician: Dr. Ulrich Attending Physician: Jc Mcneal History of Present Illness Patient has a history of hypertension, dyslipidemia, chronic anemia, asthma, and benign prostatic hypertrophy. October of 2014 he had an episode of word-finding difficulty and some right upper extremity tingling. MRI showed a subacute left posterior parietal/occipital stroke of a small nature. He had left carotid stenosis as well. He ended up getting a left carotid endarterectomy at [facility] later that year. He saw Dr. Flowers, and was put on Plavix for 3 months and then converted over to aspirin. Patient did well until June 2018. He had the sudden onset of balance issues with vertigo and double vision. MRI of the brain at that time showed no new stroke and the old changes only. He saw Dr. Flowers again and was started on simvastatin and 3 months of Plavix. After 3 months he was converted back to aspirin. He has done well following this up until yesterday. 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 He last saw Dr. Javed his surgeon June 05 and was doing. He was having some right upper leg pain but this is improved and he actually slept very well the night of the into the . He will around 8 o'clock in the morning on June 14 feeling well. He got up was walking around and actually and slept well with less leg pain that he had before. He was sitting down (to eat some food and drink coffee) around 0830 when he had the sudden onset of some numbness feeling in his left hand up to the elbow and his left foot. He felt goofy was not confused and had no speech problems. He was awake and alert and had no weakness pain. He had no left face droop or facial numbness. He read to the emergency room June 14 at 1017 with a temperature of 36.4, pulse 118, respiratory rate 18, blood pressure 169/77, and O2 saturation 99%. Although he complained of some left-sided numbness he had no focal deficits on neurologic examination. CT scan of the head showed no acute or new changes. CBC showed mild anemia and Chem profile was unremarkable except for glucose of 196. CT angiography of the head was unremarkable. CT angiography of the neck showed a 50% stenosis in the right internal carotid artery and less than 50% stenosis at the origin of the right vertebral artery. MRI of the brain showed no acute stroke. There was an old left posterior parietal/occipital stroke as before. There is mild to moderate old small vessel ischemic change. Cholesterol was 169 and triglycerides 143. Hemoglobin A1c is pending. Patient feels that he has resolved his left-sided numbness. It faded away by yesterday evening. He feels back to baseline. Allergies Allergy/AdvReac Type Severity Reaction Status Date / Time No Known Allergies Allergy Verified 06/14/19 12:28 Home Medications Home Medications Medication Instructions Recorded Confirmed Type alfuzosin [Uroxatral] 10 mg PO PM 06/26/18 06/14/19 History multivitamin 1 tab PO QAM 06/26/18 06/14/19 History omega 2-nei-tty-fish oil [Fish Oil] 1 cap PO QDL 06/26/18 06/14/19 History Symbicort 2 puff INHALATION BID PRN 10/07/18 06/14/19 History arginine HCl (L-arginine) 1 cap PO QAM 10/07/18 06/14/19 History psyllium husk [Metamucil] 4 cap PO QDD 10/07/18 06/14/19 History red yeast rice 600 mg capsule 600 mg PO BID 03/26/19 06/14/19 History cane #1 ea 04/16/19 06/05/19 Rx amlodipine 5 mg PO QAM 05/05/19 06/14/19 History acetaminophen [Tylenol Extra 1,000 mg PO Q8 30 Days #180 tab 05/22/19 06/14/19 Rx Strength] aspirin [Ecotrin Low Strength] 81 mg PO BID 45 Days #90 tab 05/22/19 06/14/19 Rx ondansetron HCl 4 mg tablet 4 mg PO TID PRN 5 Days #30 tab 05/29/19 06/14/19 Rx tramadol 50 mg tablet 50 - 100 mg PO Q6H PRN #30 tab 06/05/19 06/14/19 Rx pantoprazole [Protonix] 40 mg PO QAM 06/14/19 06/14/19 History sennosides-docusate sodium [P-COL 1 tab-cap PO USEASDIRECTD PRN 06/14/19 06/14/19 History RITE] Patient History Medical History Anemia Asthma inhaler prn Avascular necrosis of bone of right hip BPH (benign prostatic hyperplasia) Carotid stenosis s/p left CEA (2014) Chronic right hip pain GERD (gastroesophageal reflux disease) controlled History of colon polyps HLD (hyperlipidemia) no meds Hypertension Osteoarthritis Peripheral arterial disease S/P stroke due to cerebrovascular disease 2014- s/p left CEA 06/2018- no deficits/neurology recommended plavix x 3 months-- since discontinued/patient on ASA 81mg Surgical History H/O carotid endarterectomy left (2014) History of colonoscopy History of esophagogastroduodenoscopy (EGD) History of open reduction and internal fixation (ORIF) procedure left elbow History of oral surgery on gums History of right hip replacement History of root canal procedure History of thumb surgery left History of tooth extraction Hx of rectal polypectomy Hx of vasectomy Family History Mother , age 93 Hypertension Father , age 52 of lung cancer Lung cancer Other Family history non-contributory No family history of adverse response to anesthesia Social History Preferred Language: Uzbek Communication Ability: Effective Visual Impairment: No Limitations Hearing Ability: Use of Hearing Aid Family Assistant Required: No Beliefs That Will Affect Care: None marital status: Current Living Situation: Spouse Current Living Situation Comment: own home current occupational status: retired current occupation: Retired in 2016 after being [employer] for the last 24 years. 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 Feels Safe at Home: Yes Safety Concerns: Feels Safe At This Time Smoking Status: Former smoker Tobacco Type: cigarettes ; Smoking End Date: 1970 ; Second Hand Exposure: Yes (DAILY BASIS) ; Hx Alcohol Use: Yes Alcohol type: beer Alcohol type Comment: One per day most days Hx Substance Use: No Childhood Exposure to Second-Hand Smoke: No Dental Care, Regularly: Yes Physical Activity Frequency: Does not Exercise Seatbelt Use: always Sunscreen Use: Yes Review of Systems Constitutional: no fever, no fatigue and no weakness Eyes: no diplopia, no eye pain and no worsening vision Ear, Nose, Mouth, Throat: no ear pain, no tinnitus, no hearing loss, no dizziness, no snoring, no hoarseness and no dysphagia Respiratory: no cough and no dyspnea Cardiovascular: no chest pain, no palpitations and no lightheadedness Gastrointestinal: no abdominal pain, no nausea and no vomiting Genitourinary: no dysuria and no urinary incontinence Musculoskeletal: + back pain and + joint pain; no neck pain, no radicular pain and no myalgia Integumentary: no rash and no lesions Neurologic: no gait abnormality, no localized weakness, no generalized weakness, no tingling, no numbness, no tremor(s), no abnormal movements, no headache(s), no abnormal speech, no confusion and no memory loss Psychiatric: no depression, no irritability, no anxiety, no difficulty concentrating, no confusion and no hallucinations Endocrine: no fatigue and no flushing Hematologic / Lymphatic: no easy bleeding and no easy bruising Allergy / Immunological: no urticaria and no problem reported Physical Exam Physical Exam: The patient is right-handed. The patient is awake, alert, and attentive. Speech is normal without any aphasia or dysarthria. She can name objects, repeat phrases, and has normal spontaneous speech. Mentation and thought processes are intact, with orientation to person, place and time, and normal fund of knowledge. Attention and concentration are normal. Mood and affect are normal and appropriate. General appearance and grooming are normal. Short and long-term memory are intact. The discs are sharp with positive venous pulsations bilaterally. There are no exudates, hemorrhages, or blood vessel changes seen. Pupils are 4 mm bilaterally and reactive to light. Extraocular eye muscles are intact without nystagmus. Visual acuity and visual danielle seem normal grossly to confrontation. There are no deficits to sensation in the face in all 3 distributions of the fifth cranial nerve bilaterally. Corneal reflexes are positive bilaterally. Facial strength and symmetry was normal bilaterally. Hearing seems normal to whisper and finger rub bilaterally. Palate moves well without asymmetry. There is normal sternocleidomastoid and trapezius (shoulder shrug) strength bilaterally. Tongue is midline with good strength bilaterally. Neck has a full range of motion without discomfort. There are no cervical bruits bilaterally. There are no cranial or ocular bruits. Heart is without murmur. There is a regular rhythm and rate. Cervical, thoracic, and lumbar spine are nontender to palpation. Gait is narrow based, with good arm swing, turns, and stance. Balance is normal eyes open or closed. With outstretched arms there is no drift. There are no resting, postural, or action tremors. There is no ataxia with finger to nose testing. There is good facility in the hands. No other abnormal involuntary movements are noted. Motor strength is 5/5 diffusely in the arms bilaterally including deltoids, biceps, triceps, brachioradialis, wrist flexors and extensors, gelatin plant supervisor, and intrinsic hand muscles. Motor strength is 5/5 diffusely in the legs bilaterally including hip flexors, quadriceps, hamstrings, gastrocnemius, tibialis anterior, tibialis posterior, and Peroneii muscles. Toe extensors are normal and there is good bulk in the extensor digitorum brevis muscles bilaterally. The limbs have good tone without rigidity or spasticity. There is no atrophy noted in the muscles. Muscle bulk is normal, there is no tenderness to palpation, no myotonia to percussion, and no fasciculations seen. Sensory examination is intact to touch and pin throughout all 4 limbs diffusely. Reflexes are 2/4 in the biceps, triceps, brachioradialis, quadriceps, and Achilles tendons bilaterally. There is no clonus bilaterally. Toes are downgoing with plantar stimulation bilaterally. Peripheral pulses are present and of normal quality distally in all 4 limbs. There is no peripheral edema noted in the limbs. Results & Data Vital Signs (Past 12 Hours) Vital Signs Temp Pulse Pulse Resp BP Pulse Ox 06/15/19 07:44 36.8 C 76 18 122/74 95 06/15/19 03:35 36.6 C 75 16 131/70 97 06/14/19 23:20 91 H 06/14/19 23:07 36.6 C 82 16 161/87 H 95 Diagnostic Findings MR brain wo con CLINICAL HISTORY: 73 years-old Male presenting with Pt c/o left hand loss of coordination. TECHNIQUE: Multisequence, multiplanar MR imaging of the brain was performed without the use of intravenous contrast. IV contrast: None. COMPARISON: Noncontrast CT head from earlier today. FINDINGS: Localizer images: Unremarkable. Bone marrow signal intensity within the calvarium within normal limits. Normal midline sagittal structures. Ventricles and sulci normal in size. No mass effect or midline shift. No restricted diffusion or hemorrhage. Old left occipital lobe infarct. No extra-axial fluid collection. T2 skull base flow voids preserved. IMPRESSION: 1. No acute intracranial abnormality. 2. Old left occipital lobe infarct. ACT 112: Negative or not required by law. Electronically signed by: Rafi Marie M.D. 06/14/2019 12:27 PM PG Care Time/CCT Total # of Minutes Spent Total Time Spent with Patient: Total time spent is greater than 50% in coordination of care (as documented) at patient's floor/unit and/or counseling patient: (1) Hypertension Hypertension type: essential hypertension Qualified Code(s): I10 - Essential (primary) hypertension (2) HLD (hyperlipidemia) Hyperlipidemia type: mixed hyperlipidemia Qualified Code(s): E78.2 - Mixed hyperlipidemia
[2019-06-15] MEDS ORDERED: OMEGA-3 (PURIFIED FISH OIL) 1 GM CAP PO SCH (11:30)
--- NOTE | 2019-06-15 15:59 | Discharge Summary ---
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 Patient reports that the last time when he felt well was around midnight when he went to sleep. Patient reports that nothing happened overnight except when he woke up he had reported numbness. Since patient had a stroke before he came to the emergency room to checked it out. Stroke alert was called in the emergency room. ER physician contacted [facility] and no TPA was recommended at this time. The neurologist on-call recommended loading dose of clopidogrel 300 mg continuing with 75 daily and continue patient 162 mg aspirin. She also recommended work-up for possible stroke or TIA. Labs are reviewed: WBC is 4.98, hemoglobin 11.3, hematocrit 34.8, platelets 326, PT 10.3, INR 1, APTT 23.9, sodium 136, potassium 3.8, chloride 104, BUN 19, creatinine 1.39, GFR of 49.2, glucose of 199, calcium of 9, magnesium 1.9, AST 9, ALT 16, alkaline phosphatase 115, troponin 0.015. MRI of the brain showed no acute intracranial abnormality. Old left occipital lobe infarct. CTA of the head/ neck showed atherosclerosis of the three-vessel aortic arch with patent origin of the branch vessel. Noncalcified atherosclerosis with 50% stenosis of the origin of the right ICA and less than 50% stenosis of the origin and proximal 1 to 2 cm of the right vertebral artery. No evidence of aneurysm, focal vessel occlusion or significant stenosis of the intracranial arteries. Was made to admit patient to PCU on telemetry for further evaluation of transient ischemic attack versus possible acute stroke. Principal Diagnosis TIA (transient ischemic attack) Discharge Exam Constitutional well developed and well nourished; no acute distress MPRESSION: 1. No acute intrathoracic pathology. No evidence of a left lower lobe pneumonia. The radiographic finding was therefore artifactual. 2. Severe hepatic steatosis. 3. Plastic stent in place within the gastric lumen. Gastroenterology consultation recommended. ENMT external ear and nose normal, oropharynx normal Respiratory normal respiratory effort, lungs clear to auscultation Cardiovascular Rate/Rhythm: regular rate and regular rhythm Heart Sounds: normal S1 and normal S2; no murmur Vessels: posterior tibial pulses present and dorsalis pedis pulses present; no JVD Extremities: no edema Gastrointestinal (Abdomen) normal bowel sounds, soft, nontender, no hepatosplenomegaly Neurologic moves all extremities; no focal motor deficits Speech / Cognition: normal speech Gait: no ataxic gait Psychiatric A+Ox3, euthymic affect Discharge Data Allergies Allergy/AdvReac Type Severity Reaction Status Date / Time No Known Allergies Allergy Verified 06/16/19 15:14 Consultations Neurology - Víctor Callahan MD PT, OT speech therapy Ordered Studies 1. MRI brain - old left occipital lobe stroke; no acute stroke. 2. echocardiogram - EF 60-65%; no thrombus; no ASD but unable to assess for PFO. Normal valve function. No wall motion abnormalities. 3. CT head - no ICH or acute stroke. 4. CTA head/neck - * No occlusion, stenosis or aneurysm of any intracranial vessel * Noncalcified atherosclerosis with 50% stenosis of the origin of the right ICA and less than 50% stenosis of the origin and proximal 1 to 2 cm of the right vertebral artery. * No dissection or focal vessel occlusion. Hospital Course (1) Transient ischemic attack: Patient's left-sided numbness was likely due to TIA. Symptoms, fortunately, fully resolved and neuro exam remained stable during his brief stay. He was seen by [facility] - Dr Víctor Callahan - who concurred this was likely a TIA. TIA work-up including MRI brain, CTA head/neck, and echo were all normal/negative except MRI brain showing an old occipital lobe stroke and mild right-sided carotid artery stenosis. Telemetry during his brief stay was normal. Lipid profile showed LDL of 99. At discharge the following were recommended - 1. he will complete his course of aspirin 81mg BID for 1 additional week for DVT prophylaxis for his right hip replacement then STOP on 06/20/19 2. he will START plavix 75mg once daily for TIA/stroke secondary prevention in [place] of aspirin; he should remain on this indefinitely unless there is some other contraindication 3. continue on statin agent 4. nothing to do at this time for the mild ICA stenosis He was given stroke instructions at discharge. (2) History of right hip replacement: Stable at this time. Continue aspirin 162 mg p.o. daily until 06/20/19 for DVT prophylaxis then stop on that date. (3) BPH (benign prostatic hyperplasia): Stable. Continue alfuzosin 10 mg p.o. every afternoon. (4) HLD (hyperlipidemia): Continue fish oil 1 capsule p.o. daily, arginine 1 capsule p.o. every morning, and red yeast rice 600 mg p.o. twice daily. LDL was 99 on lipid profile. Given his prior stroke and ICA stenosis statin was recommended. He should take lipitor 40mg once daily. (5) Hypertension: Labile during his stay. He was continued on his prior medication regimen. Continue adjustments as an outpatient. (6) COPD (chronic obstructive pulmonary disease): Stable, continue Symbicort 2 puffs inhalation twice daily for maintenance. Total Time Total Time Spent Total Time Spent (In Minutes): 25 Total Time Includes: Examination of the Patient, Discharge Planning, Medication Reconciliation and Communication With Other Providers (neurology) Discharge Plan Discharge Items Patient Disposition: Home - Self-Care Reason For Visit: LEFT ARM/HAND/LEG NUMBNESS Discharge Diagnosis: TIA (transient ischemic attack); no evidence of new stroke on MRI brain Activity: Resume your previous activity Driving/Machine Use: Resume 1 day after discharge Non-emergency contact: Primary Care Provider Call non-emergency contact if: you have any medication questions, your symptoms worsen and you have a fever Follow-up/Referrals: Rafi Alejandro MD [Primary Care Provider] - (please see Dr Alejandro within 1 week of discharge ) Diet: Heart Healthy Addtl Attending Provider Instructions: You were seen at [facility] for left sided numbness, more so in the left arm as opposed to the left leg. The symptoms ultimately resolved. MRI of the brain showed OLD strokes but no new stroke. Thus, we have characterized your symptoms as a "TIA" (transient ischemic attack). A TIA occurs when you develop a neurological symptom or collection of symptoms abruptly and those symptoms resolve (usually within 24 hours). A TIA is NOT a mini-stroke or stroke; however a TIA is a risk factor for future stroke. You were seen by [facility], Dr Callahan, who also agreed your numbness was due to a TIA. Recommendations - 1. Continue twice daily aspirin as previously directed by the orthopedic team. However, after June 20, please discontinue the aspirin. 2. START plavix (clopidogrel) 75mg once daily for TIA/stroke prevention. Start this tomorrow on 06/16/19. 3. START lipitor (atorvastatin) 40mg once daily for your cholesterol. This is also for plaque build-up in your arteries of your neck. 4. Please follow-up with Dr Medina as previously scheduled for your carotid stenosis. Your CAT scans showed less than 50% build-up of plaque in each carotid artery. Follow-up -- * see Dr Alejandro within 1 week * see Dr Medina from vascular surgery as scheduled TIA/Stroke instructions -- Risk Factors for Stroke: You can reduce your chances of stroke by working with your medical provider to adopt a healthy lifestyle. Some specific ways to lower your chance of stroke are: * If you are a smoker, now is the time to stop smoking cigarettes * If you are diabetic, improve the control of your blood sugars * Avoid excessive amounts of alcohol * Control high blood pressure * Lose weight if you are overweight * Be sure to lead an active lifestyle * Eat a healthy diet low in salt, cholesterol and fat You should know about other risk factors for stroke that you are unable to control. These include: * Age 55 years or older * Male gender * Certain racial groups: , or / * Family History of Stroke, Mini stroke or Heart Attack * Sickle Cell Disease Who to Call and When: Medical Emergencies: Call 911 immediately if you experience any of the following warning signs and symptoms of Stroke: * Sudden numbness or weakness of the face, arm or leg, especially on one side of the body * Sudden confusion, trouble speaking or understanding * Sudden trouble seeing in one or both eyes * Sudden trouble walking, dizziness, loss of balance or coordination * Sudden severe headache with no cause Do not delay calling 911 if you experience any warning signs or symptoms of a stroke. Delay in seeking medical attention may affect what treatments can be given to you. . Pending Studies at Discharge: No Stand-Alone Forms: [facility] [employer], Smoking Cessation Medications and DC Order Prescriptions: New clopidogrel 75 mg Tablet 75 mg PO QAM Qty: 30 RF: 5 atorvastatin 40 mg Tablet 40 mg PO QAM Qty: 30 RF: 5 Continued ondansetron HCl [Zofran] 4 mg tablet 4 mg PO TID PRN (Reason: nausea and vomiting) 5 Days Qty: 30 RF: 0 (DME) cane device See Dose Instructions .ROUTE .MEDSUPPLY Qty: 1 RF: 0 red yeast rice 600 mg capsule 600 mg PO BID RF: 0 tramadol 50 mg tablet 50 - 100 mg PO Q6H PRN (Reason: pain) Qty: 30 RF: 0 amlodipine 5 mg tablet 5 mg PO QAM RF: 0 acetaminophen [Tylenol Extra Strength] 500 mg Tablet 1,000 mg PO Q8 30 Days Qty: 180 RF: 0 aspirin [Ecotrin Low Strength] 81 mg Tablet,Delayed Release (Dr/Ec) 81 mg PO BID 45 Days Qty: 90 RF: 0 multivitamin Tablet 1 tab PO QAM RF: 0 alfuzosin [Uroxatral] 10 mg tablet extended release 24 hr 10 mg PO PM RF: 0 omega 2-hrt-ahy-fish oil [Fish Oil] 1,000 mg (120 mg-180 mg) Capsule 1 cap PO QDL RF: 0 arginine HCl (L-arginine) 500 mg Capsule 1 cap PO QAM RF: 0 psyllium husk [Metamucil] 0.4 gram Capsule 4 cap PO QDD RF: 0 Symbicort 80-4.5 mcg/actuation Hfa Aerosol Inhaler 2 puff INHALATION BID PRN (Reason: Shortness Of Breath) RF: 0 sennosides-docusate sodium [P-COL RITE] 8.6-50 mg Tablet 1 tab-cap PO USEASDIRECTD PRN (Reason: Constipation) RF: 0 pantoprazole [Protonix] 40 mg tablet,delayed release (DR/EC) 40 mg PO QAM RF: 0 Discharge Orders: Discharge Order (Routine); Ordered 06/15/19 Ordered By: Jc Fabian/Other Patient Handouts: Stroke Sx, TIA, Stroke Taking Meds, Attack Transient Ischemic Dc, Stroke Risk Factors, Stroke Prevent Recurrent, Atorvastatin Calcium Oral tablet, Clopidogrel Bisulfate Oral tablet Admission Data Admit Date/Time: 06/14/19 12:10 Attending Provider: Jc Mcneal Admit Provider: Rayna Ulrich Primary Care Provider: Rafi Alejandro Other Providers: Rayna Ulrich ; Dominguez Callahan III Other Interventions: Discharge Summary Assessment (RN) Last Done: 06/15/19 17:42 DC Date/Time DO NOT enter until pt leaves facility: 06/15/19 18:03
--- NOTE | 2019-06-15 17:37 | Hospitalist Progress Note ---
Date of Service June 15, 2019 Results & Data Vital Signs (Past 12 Hours) Vital Signs Temp Pulse Pulse Resp BP Pulse Ox 06/15/19 15:26 36.8 C 83 18 135/69 96 06/15/19 13:09 67 06/15/19 11:27 36.9 C 83 20 109/69 96 06/15/19 07:44 36.8 C 76 18 122/74 95 PG Care Time/CCT Total # of Minutes Spent Total Time Spent with Patient: Total time spent is greater than 50% in coordination of care (as documented) at patient's floor/unit and/or counseling patient:
[2019-06-15] MEDS ORDERED: STROKE PATIENT DISCHARGE STA (17:42)
[2019-06-16 07:11] LABS: Estimated Average Glucose 100 mg/dl; Hemoglobin A1C 5.1 % (4.5-5.6)
== END 2019-06-15 18:03 | disposition home or self-care (01) | DRG 69 ==
LOC: ED 10:13 → 2S 12:10 → SUATTDRO 12:10 → 2S 13:38